=== PATIENT | male | born 1980 | race Caucasian/White ===

== ENCOUNTER 2020-04-06 15:49 | Emergency (ER) | payer MEDICAID, SELFPAY ==
[2020-04-06 15:50] VITALS: BP 155/100; PULSE 76; RESP 16; TEMP 36.5; O2SAT 98; BMI 24.3
--- NOTE | 2020-04-06 15:57 | ECG_ITS ---
APPROVED REPORT Exam: Resting ECG HR:76 bpm ECG Measurements Heart Rate 76 AXES WV 152 P 66 QRSd 90 QRS 72 QT 394 T 67 QTc 443 Conclusion Normal sinus rhythm Normal ECG Electronically signed by : Alex Scott, 04/07/2020 08:03:18
--- NOTE | 2020-04-06 15:59 | HMH.EDGENADL ---
ED Disposition Clinical Impression: Left arm numbness Headache Qualifiers: Headache type: unspecified Headache chronicity pattern: acute headache Intractability: not intractable Qualified Code(s): R51.9 - Headache, unspecified Disposition: Home, Self-Care Condition on Discharge: Good Instructions: DI for Headache Additional Instructions: Follow-up with Dr. Auguste, neurology. Call for appointment. You are being provided with a list of physicians available for follow-up of your condition. Please call a physician on this list to arrange a follow-up appointment as soon as possible. Return to the emergency department if numbness worsens for any new symptoms of numbness, weakness, difficulty with speech or vision. Referrals: PCP,No [Primary Care Provider] - Cait Auguste MD [Staff Physician] - - Critical Care Critical Care Time: No Attestation: On , the high probability of a clinically significant, sudden or life threatening deterioration of the following system(s) required my full and direct attention, intervention and personal management. The time I documented below is in addition to time spent performing reported procedures but includes the following listed in this critical care notation. Medical Decision Making - Scott Inquiry Pt receiving controlled substance: No Vital Signs: 04/06/20 15:50 04/06/20 17:28 04/06/20 18:09 Temperature 97.7 F Temperature Source Oral Pulse Rate [Radial] 76 69 62 Respiratory Rate 16 Blood Pressure [Right Arm] 155/100 H 130/83 139/87 Blood Pressure Mean [Right Arm] 118 98 104 Blood Pressure Source [Right Arm] Automatic Cuff Automatic Cuff Blood Pressure Position [Right Arm] Sitting Sitting Sitting 02 Sat by Pulse Oximetry 98 93 L 95 Oxygen Delivery Method Room Air Room Air Room Air - Lab Data Lab results reviewed: Yes: I reviewed the patient's lab results. Lab Results 04/06/20 16:05: WBC 7.0, RBC 5.54, Hgb 16.1, Hct 50.2, MCV 90.7, MCH 29.1, MCHC 32.1, RDW 13.2, Plt Count 295, MPV 7.9, Neut % (Auto) 61.1, Lymph % (Auto) 29.6, Slope % (Auto) 6.1, Eos % (Auto) 1.9, Baso % (Auto) 1.2, Neut # (Auto) 4.3, Lymph # (Auto) 2.1, Slope # (Auto) 0.4, Eos # (Auto) 0.1, Baso # (Auto) 0.1 04/06/20 16:05: Sodium 137, Potassium 4.1, Chloride 100, Carbon Dioxide 31 H, Anion Gap 10.1, BUN 12, Creatinine 1.00, Estimated Creat Clear 99, Estimated GFR 83, Est GFR ( Amer) 101, Glucose 127 H, Calcium 9.5, Troponin I < 0.01 Result diagrams: 04/06/20 16:05 04/06/20 16:05 Orders (Tests/Meds): ED MEDICATIONS Discontinued Medications Generic Name Dose Route Start Last Admin Trade Name Freq PRN Reason Stop Dose Admin Iopamidol 100 ml 04/06/20 16:45 04/06/20 16:46 Iopamidol-370 (76%);100ml Bottle IV 04/06/20 16:46 100 ml ONCE ONE Administration Sodium Chloride 40 ml 04/06/20 16:45 04/06/20 16:46 0.9 % Sodium Chloride 50 Ml Vial IV 04/06/20 16:46 40 ml ONCE ONE Administration Sodium Chloride 10 ml 04/06/20 16:45 04/06/20 16:46 Sodium Chloride 0.9% 10ml Syr (Rad Only) IV 04/06/20 16:46 10 ml ONCE ONE Administration ORDERS Category Date Time Status CT angio head Stat Cat Scan 04/06/20 16:[address] angio neck Stat Cat Scan 04/06/20 16:[address] head/brain wo con Stat Cat Scan 04/06/20 16:09 Taken Troponin I Q3H Lab 04/06/20 19:15 Ordered Troponin I Q3H Lab 04/06/20 22:15 Ordered - Radiology Data #1 Image(s): Chest Image Reviewed: Yes I have reviewed radiologist's interpretation PROCEDURE: XR CHEST PORTABLE CLINICAL HISTORY: dizziness, left arm numbness COMPARISON: No exams were available for comparison FINDINGS: The cardiomediastinal silhouette and pulmonary vascularity are within normal limits. The lungs are clear without infiltrates, suspicious nodules, or pleural effusions. No acute bony abnormalities. IMPRESSION: No acute findings. Dictated by: Dr. Juni Sánchez MD 04/06
--- NOTE | 2020-04-06 16:09 | CT_ITS ---
PROCEDURE: CT HEAD/BRAIN WO CON CLINICAL INDICATION: left arm numbness, headache COMPARISON: CT CT ANGIO HEAD from 04/06/2020 TECHNIQUE: Axial images obtained. All CT scans at the facility use one or more dose reduction, viz: automated exposure control, ma/kV adjustment per patient size (including targeted exams where dose is matched to indication, i.e. head), or iterative reconstruction technique. FINDINGS: No midline shift, mass effect, intracranial hemorrhage, hydrocephalus, or extra-axial fluid collection is evident. The calvarium has an unremarkable appearance. No mastoid effusion. No sinus air-fluid level. IMPRESSION: No acute intracranial finding Dictated by: Josep Bhatti MD 04/06/2020 19:55 Josep Bhatti MD in [place] 04/06/2020 19:55
--- NOTE | 2020-04-06 16:09 | CT_ITS ---
Procedure: CT ANGIO NECK CTA HEAD CLINICAL HISTORY: left arm numbness, headache COMPARISON: CT CT ANGIO HEAD from 04/06/2020 TECHNIQUE: IV Contrast: 100ml Isovue 370 Axial images obtained with sagittal and coronal reformats. All CT scans at the facility use one or more dose reduction, viz: automated exposure control, ma/kV adjustment per patient size (including targeted exams where dose is matched to indication, i.e. head), or iterative reconstruction technique. FINDINGS: CTA neck: The aortic arch, great vessels, right common carotid, right internal carotid, right external carotid, left common carotid left internal carotid and left external carotid arteries have an unremarkable appearance. The vertebrals have an unremarkable appearance. Artifact obscures the proximal aspect of the left vertebral artery. No stenosis, aneurysm, or dissection. CTA head: No aneurysm, AVM, major branch occlusion, or dissection evident. The vertebral basilar system has an unremarkable appearance as does the [id number]. No enhancing lesions are evident. Lung apices are clear. There are few scattered small cervical lymph nodes. Asymmetric decreased aeration of the right vallecula noted as well as some asymmetric density in the left hypo pharyngeal region possibly due to nondistention. IMPRESSION: 1. Negative CTA neck. 2. Negative CTA brain. 3. Other nonacute findings as described above. Dictated by: Josep Bhatti MD 04/07/2020 07:29 Josep Bhatti MD in [place] 04/07/2020 07:29
[2020-04-06 16:13] LABS: Basophils # 0.1 K/mm3 (0-0.2); Basophils % 1.2 % (0.1-2.0); Eosinophils # 0.1 K/mm3 (0.0-0.4); Eosinophils % 1.9 % (0.1-12.0); Hematocrit 50.2 % (42.0-52.0); Hemoglobin 16.1 g/dL (14.1-18.0); Lymphocytes # 2.1 K/mm3 (0.7-4.5); Lymphocytes % 29.6 % (10-50); Mean Corpuscular HGB Conc 32.1 g/dL (31.8-35.4); Mean Corpuscular Hemoglobin 29.1 pg (27.0-31.2); Mean Corpuscular Volume 90.7 fl (80-94); Mean Platelet Volume 7.9 fl (7.4-10.4); Monocytes # 0.4 K/mm3 (0.1-1.0); Monocytes % 6.1 % (1.7-9.3); Neutrophils # 4.3 K/mm3 (1.8-7.8); Neutrophils % 61.1 % (37.0-80.0); Platelet Count 295 K/mm3 (142-424); Red Blood Count 5.54 M/mm3 (4.60-6.20); Red Cell Distribution Width 13.2 % (11.5-17.5)
[2020-04-06 16:18] LABS: Chloride 100 mmol/L (98-107); Sodium 137 mmol/L (136-145)
[2020-04-06 16:19] LABS: Potassium 4.1 mmoL/L (3.5-5.1)
[2020-04-06 16:21] LABS: Blood Urea Nitrogen 12 mg/dl (9-20); Creatinine Clearance Estimated 99 mL/min (50-200); Estimated Glomerular Filt Rate 83 ml/min (>60); GFR (African American) 101 ML/MIN (>60)
--- NOTE | 2020-04-06 16:21 | PC.NURSE ---
Patient going to radiology
[2020-04-06 16:22] LABS: Anion Gap 10.1 mEq/L (5-15); Calcium 9.5 mg/dl (8.4-10.2); Carbon Dioxide 31 mmol/L (22.0-30.0); Glucose 127 mg/dl (74-100)
[2020-04-06 16:43] LABS: Troponin I < 0.01 ng/ml (0.00-0.034)
--- NOTE | 2020-04-06 16:44 | PC.NURSE ---
Patient returning from radiology
[2020-04-06 17:28] VITALS: BP 130/83; PULSE 69; O2SAT 93
[2020-04-06 18:09] VITALS: BP 139/87; PULSE 62; O2SAT 95
[2020-04-06 18:36] VITALS: BP 119/78; PULSE 68; O2SAT 97
[2020-04-06 18:39] VITALS: BP 119/84; PULSE 68; RESP 16; TEMP 36.6; O2SAT 98
== END 2020-04-06 18:41 | disposition home or self-care (01) ==
PROVIDERS: Emergency Provider Emergency Medicine
DX: R42 Dizziness and giddiness (principal); R20.2 Paresthesia of skin; R51.9 Headache, unspecified; F17.210 Nicotine dependence, cigarettes, uncomplicated
CPT/HCPCS: 70450; 70496; 70498; 71045; 80048; 84484; 85025; 93005; 96374; 99283; Q9967

== ENCOUNTER 2020-12-09 17:08 | Emergency (ER) | payer MEDICAID, SELFPAY ==
[2020-12-09 17:15] VITALS: BP 123/97; PULSE 60; RESP 18; TEMP 36.6; O2SAT 100; BMI 22.8
--- NOTE | 2020-12-09 17:57 | HMH.EDUTC ---
[facility] Disposition Clinical Impression: Exposure to COVID-19 virus Disposition: Home, Self-Care Condition on Discharge: Good Instructions: DI for COVID-19 (Suspected or Confirmed ), Preventing the Spread of Coronavirus Discharge Instructions Additional Instructions: Drink plenty of fluids. Take tylenol for pain or fever. Return if you begin to have difficulty breathing. Follow up with your regular doctor. GO TO THE ER FOR ANY WORSENING SYMPTOMS Quarantine until you know the results of your covid-19 test. If it is positive, the health department should call you and give you further instructions about your length of Quarantine and other thing. Referrals: Provider,Referral, [Primary Care Provider] - Time of Disposition: 17:59 Medical Decision Making - Medical Records Medical records reviewed: No: I reviewed the patient's medical records. - Scott Inquiry Pt receiving controlled substance: No Vital Signs: 12/09/20 17:15 12/09/20 18:00 Temperature 97.9 F 97.9 F Temperature Source Oral Pulse Rate 60 Pulse Rate [Right Brachial] 60 Respiratory Rate 18 18 Blood Pressure 123/97 H Blood Pressure [Right Arm] 123/97 H Blood Pressure Mean [Right Arm] 105 Blood Pressure Source [Right Arm] Automatic Cuff Blood Pressure Position [Right Arm] Sitting 02 Sat by Pulse Oximetry 100 Oxygen Delivery Method Room Air Orders (Tests/Meds): ORDERS Category Date Time Status Covid-19 Nasal PCR ([facility]) Routine Lab 12/09/20 17:59 Ordered [facility] HPI - General Stated complaint: covid test Time Seen by Provider: 12/09/20 17:57 - History of Present Illness Provider Complaint: He has been exposed to covid-19 by his girlfriend having covid. He thinks that his exposure initially would have been around 4 days ago. He denies any symptoms or complaints so far. - Related Data Home Medications Medication Instructions Recorded Confirmed No Known Home Medications 04/06/20 04/06/20 Allergies Allergy/AdvReac Type Severity Reaction Status Date / Time No Known Allergies Allergy Verified 08/19/18 17:45 [facility] History - Hepatitis A Screen Attestation statement:: This patient has been screened for Hepatitis A risk factors. I have reviewed the patient's past medical history: Yes - Social History Alcohol Intake: never Occupational Status: employed ROS Obtained: Yes All systems reviewed & no additional complaints - Constitutional Constitutional: Reports system reviewed and no additional complaints, except as docu - Eyes Eyes: Reports system reviewed and no additional complaints, except as docu - ENT Ears, Nose, Mouth, and Throat: Reports system reviewed and no additional complaints, except as docu - Cardiovascular Cardiovascular: Reports system reviewed and no additional complaints, except as docu - Respiratory Respiratory: Reports system reviewed and no additional complaints, except as docu - Gastrointestinal Gastrointestingal: Reports: system reviewed and no additional complaints, except as docu Physical Exam - General General appearance: alert, in no apparent distress - Head Head exam: atraumatic, normocephalic, normal inspection - Eye Eye exam: Present: normal appearance, PERRL, EOMI - ENT ENT exam: Present: normal exam, normal oropharynx, mucous membranes moist, TM's normal bilaterally, normal external ear exam - Neck Neck exam: Present: normal inspection, full ROM, trachea midline. Absent: meningismus, lymphadenopathy - Chest Chest inspection: Present: normal inspection, symmetric chest wall rise. Absent: tenderness - Respiratory Respiratory exam: Present: normal lung sounds bilaterally. Absent: respiratory distress - Cardiovascular Cardiovascular exam: Present: regular rate, normal rhythm. Absent: JVD - Abdominal Exam Abdominal exam: Present: soft, normal bowel sounds. Absent: distention, tenderness, guarding - Extremities Exam Extremities
[2020-12-09 18:00] VITALS: BP 123/97; PULSE 60; RESP 18; TEMP 36.6; O2SAT 100
--- NOTE | 2020-12-10 17:32 | PC.NURSE ---
RELAYED POSITIVE COVID RESULTS
== END 2020-12-09 18:02 | disposition home or self-care (01) ==
PROVIDERS: Emergency Provider Nurse Practitioner Family
DX: U07.1 COVID-19 (principal)
CPT/HCPCS: 99202; G0463; U0003

== ENCOUNTER 2021-01-22 09:14 | Inpatient (IN) | payer MEDICAID, SELFPAY ==
[2021-01-22] VITALS (28 sets, daily range): BP systolic 101–159; BP diastolic 47–103; PULSE 79–103; RESP 16–20; TEMP 36.4–36.9; O2SAT 94–100; BMI 24.2; BMI 24.3; BMI 22.6
--- NOTE | 2021-01-22 | IR_ITS ---
APPROVED REPORT Patient Location: Emergent Project Development Manager: BERNARD Calle RT (R) PROCEDURES Left heart catheterization Left ventriculogram Selective coronary angiogram Thrombectomy followed by drug-eluting stent deployment to the proximal ID INDICATION Acute ST elevation anterior myocardial infarction, Coronary artery disease Informed consent was obtained prior to the procedure. COMPLICATIONS None Estimated Blood Loss: less than 10ml TECHNIQUE One percent lidocaine used to anesthetize the right anterior aspect of the wrist. The right radial artery was accessed via the Seldinger technique. A 6 Indonesian sheath was placed in the right radial artery. 2.5 mg of verapamil, 800 mcg of nitroglycerin, 1mg Lidocaine and 5000 U Heparin were given through the arterial sheath. And I Lorna left guide catheter was used to perform left heart catheterization left ventriculogram and selective coronary angiogram. Soon as a catheter was cannulated and the left main artery and a Choice PT wire is placed in the circumflex artery in order to stabilize the catheter. An additional Choice PT extra-support wire was then used to push through the occlusion in the proximal LAD. A [employer] aspiration catheter was used to aspirate a large thrombus which restored IMANI-3 flow. Following this a 3.5 x 30 mm resolute [place] stent was deployed at 18 niesha reducing the critical stenosis. An additional 3.5 x 12 mm resolute [place] stent was placed distal to the first stent and deployed at 20 niesha. The balloon was brought back and deployed at 2022 and 24 niesha up and down the proximal LAD. IMANI-3 flow was present before the procedure with IMANI-3 flow at the end of the procedure. Following this the catheter was pulled back and used to perform right coronary angiography as well as left heart catheterization and left ventriculogram. Patient had tremendous difficulty with sedation was combative and required both manual pressure as well as the addition of propofol in order to stabilize him on the cath table. He did tolerate the procedure well and the procedure was otherwise uncomplicated with the exception of requiring propofol for sedation. At the end of the procedure the apparatus was removed the sheath was removed good hemostasis was achieved using TR banding patient was transferred to the postop putting her stable condition ANGIOGRAPHIC RESULTS The left main artery Normal The left anterior descending artery Initially ostially occluded following stent deployment the proximal LAD was widely patent. The stent covered a small first diagonal artery with IMANI-3 flow down the first diagonal artery and ended immediately proximal to a moderate to large first second diagonal artery. Distal to the second diagonal artery the LAD then had diffuse 30% stenoses The circumflex artery Is a dominant vessel giving rise to 3 obtuse marginal arteries all of which are widely patent with mild 10% luminal irregularities The right coronary artery Nondominant yet still large with mild 10% luminal irregularities The [place] ventriculogram reveals Dilated ventricle with anterior and apical hypokinesis estimated ejection fraction 20-25% The left ventricular end-diastolic pressure 40 mmHg IMPRESSION Acute proximal anterior ST elevation myocardial infarction Successful thrombectomy followed by drug-eluting stent deployment to the proximal LAD 100% occlusion reduced to 0% with 2 contiguous drug-eluting stents Dilated ventricle with severely reduced ejection fraction Severely elevated LVEDP PLAN 1. Brilinta 90 twice daily plus aspirin 81 mg daily 2. Start TEJ inhibitors and then titrate up. Once patient is on reasonable dose of TEJ inhibition then carvedilol
--- NOTE | 2021-01-22 09:51 | HMH.EDUTC ---
[facility] [place] Disposition Clinical Impression: STEMI (ST elevation myocardial infarction) Qualifiers: Involved coronary artery: unspecified coronary artery Qualified Code(s): I21.3 - ST elevation (STEMI) myocardial infarction of unspecified site Disposition: Admitted as Observation Condition on Discharge: Good Medical Decision Making - Scott Inquiry Pt receiving controlled substance: No Scott was queried for this patient: No Vital Signs: 01/22/21 09:15 01/22/21 09:23 01/22/21 10:30 Temperature 98.3 F 98.3 F 98.3 F Temperature Source Oral Temporal Artery Scan Pulse Rate 80 Pulse Rate [Right] 80 80 Respiratory Rate 16 16 16 Blood Pressure 130/100 H Blood Pressure [Right Arm] 130/100 H 130/100 H Blood Pressure Mean [Right Arm] 110 110 Blood Pressure Source [Right Arm] Automatic Cuff Blood Pressure Position Blood Pressure Position [Right Arm] Sitting Sitting 02 Sat by Pulse Oximetry 98 98 Oxygen Delivery Method Room Air Room Air 01/22/21 11:08 01/22/21 11:24 Temperature 98 F 98 F Temperature Source Oral Oral Pulse Rate 98 H Pulse Rate [Right] 98 H Respiratory Rate 16 16 Blood Pressure 159/99 H Blood Pressure [Right Arm] 159/99 H Blood Pressure Mean [Right Arm] 119 Blood Pressure Source [Right Arm] Blood Pressure Position Sitting Blood Pressure Position [Right Arm] Sitting 02 Sat by Pulse Oximetry 98 Oxygen Delivery Method Room Air Room Air - Lab Data Lab Results 01/22/21 11:08: WBC 11.7 H, RBC 5.66, Hgb 17.3, Hct 52.6 H, MCV 93.0, MCH 30.6, MCHC 32.8, RDW 13.5, Plt Count 341, MPV 8.3, Neut % (Auto) 78.6, Lymph % (Auto) 15.3, Boyd % (Auto) 4.2, Eos % (Auto) 0.6, Baso % (Auto) 1.2, Neut # (Auto) 9.2 H, Lymph # (Auto) 1.8, Boyd # (Auto) 0.5, Eos # (Auto) 0.1, Baso # (Auto) 0.1 01/22/21 11:08: Sodium 140, Potassium 4.6, Chloride 103, Carbon Dioxide 27, Anion Gap 14.6, BUN 13, Creatinine 1.00, Estimated Creat Clear 88, Estimated GFR 83, Est GFR ( Amer) 100, Glucose 167 H, Calcium 10.0, Total Bilirubin 0.5, AST 64 H, ALT 61, Alkaline Phosphatase 101, Troponin I 1.41 H, Total Protein 8.4 H, Albumin 4.8, Globulin 3.6 H, Albumin/Globulin Ratio 1.3 01/22/21 11:08: PT 10.6, INR 0.89 L, APTT 26.2 01/22/21 11:08: NT-Pro-B Natriuret Pep 787 H 01/22/21 11:14: SARS-CoV-2 (PCR) Detected A, Influenza A Untype (PCR) Not detected, Influenza Type B (PCR) Not detected 01/22/21 11:44: Activated Clotting Time 308 H* Result diagrams: 01/22/21 11:08 01/22/21 11:08 Orders (Tests/Meds): ED MEDICATIONS Generic Name Dose Route Start Last Admin Trade Name Freq PRN Reason Stop Dose Admin Aspirin 81 mg 01/23/21 09:00 Aspirin Ec 81mg Tablet PO 02/22/21 08:59 DAILY WHITNEY Atorvastatin Calcium 40 mg 01/22/21 21:00 01/22/21 21:24 Atorvastatin 40mg Tablet PO 02/21/21 20:59 40 mg HS WHITNEY Administration Fentanyl Citrate 25 mcg 01/22/21 12:24 Fentanyl 100mcg/2ml Vial IV 01/23/21 11:44 Q3MINP PRN Moderate to Severe Pain Fentanyl Citrate 50 mcg 01/22/21 12:24 Fentanyl 100mcg/2ml Vial IV 01/23/21 11:44 Q3MINP PRN Moderate to Severe Pain Fentanyl Citrate 25 mcg 01/22/21 12:24 Fentanyl 250mcg/5ml Vial IV 01/23/21 11:44 Q3MINP PRN Moderate to Severe Pain Fentanyl Citrate 50 mcg 01/22/21 12:24 Fentanyl 250mcg/5ml Vial IV 01/23/21 11:44 Q3MINP PRN Moderate to Severe Pain Flumazenil 0.2 mg 01/22/21 12:24 Flumazenil 0.1mg/Ml 5ml Vial IV 01/22/21 23:00 NEEDED PRN Sedation Sodium Chloride 1,000 mls @ 25 mls/hr 01/22/21 12:24 01/22/21 16:38 Sod Chlor 0.9% 1000ml Bag IV 01/23/21 11:44 Not Given .Q25H WHITNEY Lisinopril 2.5 mg 01/22/21 21:00 01/22/21 21:24 Lisinopril 2.5mg Tablet PO 02/21/21 20:59 2.5 mg BID WHITNEY Administration Midazolam HCl 1 mg 01/22/21 12:24 Midazolam 2mg/2ml Vial IV 01/23/21 11:44 Q3MINP PRN Sedation Midazolam HCl 1 mg 01/22/21 12:24 Midazolam Hcl 1mg/1m
--- NOTE | 2021-01-22 10:58 | ECG_ITS ---
APPROVED REPORT Exam: Resting ECG HR:101 bpm ECG Measurements Heart Rate 101 AXES [place] 136 P 76 QRSd 102 QRS -54 QT 342 T 36 QTc 443 Conclusion Sinus tachycardia Possible Left atrial enlargement Incomplete right bundle branch block Left anterior fascicular block Anteroseptal infarct, possibly acute Lateral injury pattern ACUTE MD Abnormal ECG Electronically signed by : Alex Scott MD 01/24/2021 21:10:57
--- NOTE | 2021-01-22 11:06 | ECG_ITS ---
APPROVED REPORT Exam: Resting ECG HR:94 bpm ECG Measurements Heart Rate [address] 146 P 80 QRSd 92 QRS -53 QT 334 T 68 QTc 417 Conclusion Normal sinus rhythm Possible Left atrial enlargement Pulmonary disease pattern Left anterior fascicular block Septal infarct, age undetermined Abnormal ECG Electronically signed by : Alex Scott MD 01/24/2021 21:10:47
--- NOTE | 2021-01-22 11:07 | PC.NURSE ---
Dr Kingston speaking with Dr Jurado at this time.
--- NOTE | 2021-01-22 11:08 | PC.NURSE ---
STEMI alert called.
--- NOTE | 2021-01-22 11:13 | PC.NURSE ---
Pt taken to cath lab technologist
--- NOTE | 2021-01-22 11:13 | PC.NURSE ---
Pt to laborer general
--- NOTE | 2021-01-22 11:13 | HMH.EDGENADL ---
ED Disposition Clinical Impression: STEMI (ST elevation myocardial infarction) Disposition: Admitted as Observation Condition on Discharge: Serious Referrals: Provider,Referral, [Primary Care Provider] - - Critical Care Critical Care Time: No Attestation: On 01/22/21, the high probability of a clinically significant, sudden or life threatening deterioration of the following system(s) required my full and direct attention, intervention and personal management. The time I documented below is in addition to time spent performing reported procedures but includes the following listed in this critical care notation. Medical Decision Making - Medical Records Medical records reviewed: Yes: I reviewed the patient's medical records. - Scott Inquiry Pt receiving controlled substance: No Vital Signs: 01/22/21 09:15 01/22/21 09:23 01/22/21 10:30 Temperature 98.3 F 98.3 F 98.3 F Temperature Source Oral Temporal Artery Scan Pulse Rate 80 Pulse Rate [Right] 80 80 Respiratory Rate 16 16 16 Blood Pressure 130/100 H Blood Pressure [Right Arm] 130/100 H 130/100 H Blood Pressure Mean [Right Arm] 110 110 Blood Pressure Source [Right Arm] Automatic Cuff Blood Pressure Position [Right Arm] Sitting Sitting 02 Sat by Pulse Oximetry 98 98 Oxygen Delivery Method Room Air Room Air Orders (Tests/Meds): ED MEDICATIONS Discontinued Medications Generic Name Dose Route Start Last Admin Trade Name Brigitte PRN Reason Stop Dose Admin Aspirin 325 mg 01/22/21 11:08 Aspirin 325mg Tablet PO 01/22/21 11:09 ONCE ONE Heparin Sodium (Porcine) 7,300 unit 01/22/21 11:08 Heparin Sodium 5,000 Unit/Ml Vial 100 unit/kg (7300 unit) 01/22/21 11:09 IV ONCE ONE Ketorolac Tromethamine 60 mg 01/22/21 10:15 01/22/21 10:29 Ketorolac 60mg/2ml Vial IM 01/22/21 10:16 60 mg ONCE ONE Administration Ticagrelor 180 mg 01/22/21 11:08 Ticagrelor 90mg Tablet PO 01/22/21 11:09 ONCE ONE ORDERS Category Date Time Status Elbow XR left mininum 3 views [XR elbow LT min 3V] Stat Exams 01/22/21 10:17 Ordered Brain Natriuretic Peptide Stat Lab 01/22/21 11:10 Ordered Complete Blood Count Auto Diff Stat Lab 01/22/21 11:09 Ordered Comprehensive Metabolic Panel Stat Lab 01/22/21 11:09 Ordered PTT [Activated Partial Thrombo Time] Stat Lab 01/22/21 11:10 Ordered Prothrombin Time INR Stat Lab 01/22/21 11:10 Ordered Rapid PCR Covid and Flu A/B Stat Lab 01/22/21 11:12 Ordered Trop I [Troponin I] Stat Lab 01/22/21 11:09 Ordered Troponin I Q3H Lab 01/22/21 14:15 Ordered Troponin I Q3H Lab 01/22/21 17:15 Ordered - ECG Data Tracing #1 EKG was reviewed at 1106. Normal trickle rate at 94 bpm, WV interval 146 ms. Normal QTC. Patient has diffuse elevation in the lateral precordial leads as well as depression in 2 3 aVF. Patient is elevation in aVR as well as aVL. Concern for STEMI. ECG initial impression date: 01/22/21 ECG initial impression time: 11:06 - Reevaluation(s) Time: 11:15 Reevaluation #1: EKG is consistent with acute ST elevation. Cardiology was notified. Patient was loaded with aspirin, Brilinta and heparin. Patient transferred to the Social Media Intern for intervention. - MONET Score for Stemi Age of Patient: 40-49 years old Heart Rate: 70-89 bpm Systolic Blood Pressure: 120-139 mmhg Serum Creatinine: <0.40 mg/dl CHF [place] Class: I-No CHF Other Risk Factors: ST Segment Deviation Stemi Risk Score: 97 Risk Stratification: 49-125 = Low Risk Medical Decision Narrative: 40-year-old male presented to the emergency department with subacute left arm pain. The patient does not have any reproducible tenderness on examination. Range of motion appears to be appropriate. We will obtain EKG. General Adult HPI - General Chief complaint: PAIN Stated complaint: left elbow pain,no accident Time Seen by Provider: 01/22/21 09:51 Mode of Arrival: Ambulatory Source of I
--- NOTE | 2021-01-22 11:14 | PC.NURSE ---
PT TO [facility] PER STRETCHER
--- NOTE | 2021-01-22 11:14 | PC.NURSE ---
Calling Dr Pan at this time who is covering Dr Williamson who is on for unassigned pt's
[2021-01-22 11:17] LABS: Basophils # 0.1 K/mm3 (0-0.2); Basophils % 1.2 % (0.1-2.0); Eosinophils # 0.1 K/mm3 (0.0-0.4); Eosinophils % 0.6 % (0.1-12.0); Hematocrit 52.6 % (42.0-52.0); Hemoglobin 17.3 g/dL (14.1-18.0); Lymphocytes # 1.8 K/mm3 (0.7-4.5); Lymphocytes % 15.3 % (10-50); Mean Corpuscular HGB Conc 32.8 g/dL (31.8-35.4); Mean Corpuscular Hemoglobin 30.6 pg (27.0-31.2); Mean Platelet Volume 8.3 fl (7.4-10.4); Monocytes # 0.5 K/mm3 (0.1-1.0); Monocytes % 4.2 % (1.7-9.3); Neutrophils # 9.2 K/mm3 (1.8-7.8); Neutrophils % 78.6 % (37.0-80.0); Platelet Count 341 K/mm3 (142-424); Red Blood Count 5.66 M/mm3 (4.60-6.20); Red Cell Distribution Width 13.5 % (11.5-17.5); White Blood Count 11.7 K/mm3 (4.8-10.8)
--- NOTE | 2021-01-22 11:19 | PC.NURSE ---
According to Dr Pan there is some confusion with the schedule for coverage and Dr Davidson is actually preparation supervisor canning. Calling him at this time.
[2021-01-22 11:21] LABS: Influenza A, PCR Not Detected (NotDetected); Influenza B, PCR Not Detected (NotDetected)
[2021-01-22 11:21] LABS: Chloride 103 mmol/L (98-107); Potassium 4.6 mmoL/L (3.5-5.1); Sodium 140 mmol/L (136-145)
--- NOTE | 2021-01-22 11:21 | HMH.CNCARD ---
History of Present Illness Consult date: 01/22/21 Requesting physician: Marshall Wilhelm Consult reason: chest pain Chief complaint: STEMI History of present illness: 40-year-old male presented to [facility] ED as a STEMI. Patient states for the past 3 days he has been having some left elbow pain which radiates to the left armpit. Patient states the pain would come and go but for the past few hours the pain has become worse in the left elbow. Patient denies chest pain, tightness or pressure. Patient denied shortness of breath. No swelling noted of the lower extremity. Patient was being seen at the [facility] center for his left elbow pain. [facility] stated while he was waiting to be seen, he became very diaphoretic and had near syncope. Patient is alert and oriented appropriately x3. Patient denies dizziness. Patient denies palpitations. STEMI alert was called. Dr. Jurado was notified and EKG was reviewed. Per ED protocol, Brilinta 900 mg was given p.o. along with aspirin and heparin was initiated. Fund Manager was notified. Patient was transported to the Fund Manager to undergo left heart catheterization. Discussed with patient the risk and benefits of undergoing left heart catheterization with right radial access. Patient verbalized understanding and is agreeable to procedure. Pending on the results of the heart catheterization, medication and treatment therapies may be recommended. Echocardiogram will be obtained to assess LV function and valve status. Results of the echocardiogram, medication and treatment therapies may be recommended. Patient states no known cardiac history. Denies history of hypertension or hyperlipidemia. Patient states he does smoke marijuana daily. Patient states the last day he smoked marijuana was yesterday. Patient does consume alcohol on a social basis. Serial troponins have been drawn. Results are pending at this time. EKG reveals normal sinus rhythm, possible left atrial enlargement, pulmonary disease pattern, left anterior fascicular block, septal infarct, abnormal ECG with a heart rate of 94 bpm. Labs pending at this time. Chest x-ray is pending at this time Discussed plan of care with Dr. Jurado. Discussed risk and benefits with patient to undergo left heart catheterization with right radial access. Patient verbalized understanding and is agreeable to procedure. Echocardiogram to obtain LV function and valve status. Pending on the results of the echocardiogram and left heart catheterization, medication and treatment therapies may be recommended. Patient was taken directly to Fund Manager. Thank you for allowing cardiology to participate in the care of this patient. [facility] History I have reviewed the patient's past medical history: Yes *Have you ever received a pneumonia vaccine?: No *Have you received a flu vaccine this season?: No - *Social History Smoking Status: Current every day smoker Alcohol Intake: never *Occupational Status:: employed *Travel in the last 8 weeks: Inside the [place] Family Hx:: Coronary Artery Disease Meds Home Medications Medication Instructions Recorded Confirmed Type No Known Home Medications 04/06/20 01/22/21 History Allergies Allergy/AdvReac Type Severity Reaction Status Date / Time No Known Allergies Allergy Verified 08/19/18 17:45 Exam Vital signs and Labs for Last 24 Hours: Temp Pulse Resp BP Pulse Ox 98 F 98 H 16 159/99 H 98 01/22/21 11:08 01/22/21 11:08 01/22/21 11:08 01/22/21 11:08 01/22/21 11:08 Laboratory Results - last 24 hr 01/22/21 11:08: WBC 11.7 H, RBC 5.66, Hgb 17.3, Hct 52.6 H, MCV 93.0, MCH 30.6, MCHC 32.8, RDW 13.5, Plt Count 341, MPV 8.3, Neut % (Auto) 78.6, Lymph % (Auto) 15.3, Young % (Auto) 4.2, Eos % (Auto) 0.6, Baso % (Auto) 1.2, Neut # (Auto) 9.2 H, Lymph # (Auto) 1.8, Young # (Auto) 0.5, Eos # (Auto) 0.1, Baso # (Auto) 0.1 I & O for Last 24 hours: Intake & Output 01/19/2101/20
[2021-01-22 11:24] LABS: Alanine Aminotransferase 61 U/L (12-78); Albumin Level 4.8 g/dl (3.5-5.0); Albumin/Globulin Ratio 1.3 (1.1-1.8); Alkaline Phosphatase 101 U/L (38-126); Anion Gap 14.6 mEq/L (5-15); Aspartate Amino Transferase 64 U/L (17-59); Bilirubin,Total 0.5 mg/dl (0.2-1.3); Blood Urea Nitrogen 13 mg/dl (9-20); Carbon Dioxide 27 mmol/L (22.0-30.0); Creatinine Clearance Estimated 88 mL/min (50-200); Estimated Glomerular Filt Rate 83 ml/min (>60); GFR (African American) 100 ML/MIN (>60); Globulin 3.6 g/dL (1.3-3.2); Total Protein,Serum 8.4 g/dl (6.3-8.2)
[2021-01-22 11:25] LABS: Glucose 167 mg/dl (74-100)
[2021-01-22 11:27] LABS: Activated Partial Thrombo Time 26.2 seconds (22.8-30.6); Prothrombin Time 10.6 seconds (10.1-12.5)
[2021-01-22 11:33] LABS: NT Pro Brain Natriuretic Pep. 787 pg/mL (0-125)
[2021-01-22 11:39] LABS: INR 0.89 (0.9-1.1)
[2021-01-22 11:42] LABS: Coronavirus 19, PCR Detected (NotDetected)
[2021-01-22 11:42] LABS: Troponin I 1.41 ng/ml (0.00-0.034)
[2021-01-22 14:29] LABS: CATHL Activated Clotting Time 308 SEC (74-125)
--- NOTE | 2021-01-22 15:16 | CA_ITS ---
APPROVED REPORT EXAM: Comprehensive 2D, Doppler, and color-flow Echocardiogram Health Services Coordinator: Leatha Baez RVT Ht: 5 ft 6 in Wt: 150lbs BSA: 1.77 BP: 159/99 mmHg Indications: STEMI,SMOKER,EF OF 20-25% ON CATH 01/22 2D Dimensions LVOT 1.98 cm (M/F) 1.5-2.5 LA Volume 19.90 mL LA Volume Index 11.24 mL/m2 (M/F) 16-34 M-Mode Dimensions RVDd 1.52 cm (0.9-2.6) LA Diam 3.48 cm (1.9-4.0) LVDd 4.87 cm (3.5-5.7) Ao Diam 2.96 cm (2.0-3.7) LVDs 3.88 cm (3.5-5.7) IVSd 0.87 cm (0.6-1.1) PWd 0.65 cm (0.6-1.1) EF (Teich) 31.40% FS 14.70% EDV (Teich) 94.90 mL TAPSE 1.68 (<1.7) ESV (Teich) 65.10 mL LV Diastology E Decel Time 103.00 (160-240 msec) E/A Ratio 1.3 MED E' 5.70 (< 7 cm/sec) E'/MED E' Ratio 14.16 (>14) LAT E' 8.90 (<10 cm/sec) E/LAT E' Ratio 9.07 (>14) Aortic Valve AO Peak GR. 3.30 mmHg Mitral Valve MV E Max Andrea. 81.00 (40-130 cm/s) MV A Velocity 61.00 (40-130 cm/s) E/A Ratio 1.33 MV Decel. Time 103.00 (160-240 ms) MV PHT 30.00 ms Pulmonary Valve PV Peak Velocity 66.00 (50-150 cm/s) Tricuspid Valve TR P. Velocity 299.00 cm/s RAP Estimate 10.00 mmHg RVSP 45.90 mmHg Left Ventricle Left atrium is mildly enlarged, left ventricle is normal size, mild concentric left ventricular hypertrophy, visually estimated ejection fraction 25%, there is marked hypokinesis involving mid to distal septum, anterior, anterior apical and apical wall. Grade 1 diastolic dysfunction seen without tissue Doppler evidence of raise left atrial pressure. Right Ventricle Right atrium and right ventricle are normal size and contractility. Aortic Valve Aortic valve is minimally thickened and fibrosed, there is no aortic stenosis or aortic insufficiency. Mitral Valve Mitral valve is grossly normal, there is trace mitral regurgitation. Tricuspid Valve Tricuspid valve grossly normal, there is trace tricuspid regurgitation, calculated right ventricular systolic pressure is 46 mmHg. Pulmonic Valve Pulmonic valve is poorly visualized. Great Vessels Aortic root is normal size. Pericardium No significant pericardial effusion noted. Conclusion 1. Mildly enlarged left atrium, normal left ventricular size, mild concentric left ventricular hypertrophy, severe reduced left ventricular systolic function, visually estimated ejection fraction 25%, with multiple segmental wall motion abnormality described above, Doppler evidence of low cardiac output state is also seen. 2. Mild mitral and tricuspid regurgitation. Calculated right ventricular systolic pressure is 46 mmHg. 3. No significant pericardial effusion noted. 4. Inferior vena cava is normal size with normal inspiratory collapse. Electronically signed by : Isai Brown MD 01/22/2021 19:54:07
--- NOTE | 2021-01-22 15:45 | HMH.PHAVTE ---
[facility] Pharmacy VTE Monitoring - Patient Demographics Admission date: 01/22/21 Report Date: 01/22/21 Time: 15:45 Allergies/Adverse Reactions: Patient Allergies No Known Allergies Allergy (Verified 08/19/18 17:45) Height: 1.68 m Weight: 68.039 kg Patient Problems: Current Active Problems Left arm numbness (Acute) STEMI (ST elevation myocardial infarction) (Acute) Left elbow pain (Acute) - VTE Risk Labs: VTE Related Lab Results Hgb 17.3 g/dL (14.1-18.0) 01/22/21 11:08 Hct 52.6 % (42.0-52.0) H 01/22/21 11:08 Plt Count 341 K/mm3 (142-424) 01/22/21 11:08 PT 10.6 seconds (10.1-12.5) 01/22/21 11:08 INR 0.89 (0.9-1.1) L 01/22/21 11:08 APTT 26.2 seconds (22.8-30.6) 01/22/21 11:08 BUN 13 mg/dl (9-20) 01/22/21 11:08 Creatinine 1.00 mg/dl (0.66-1.25) 01/22/21 11:08 Estimated Creat Clear 88 mL/min (50-200) 01/22/21 11:08 VTE Score: 1 - Prophylaxis VTE Prophylaxis Ordered?: Yes Types of VTE Prophylaxis: TEDS Knee High Location of Applied Device: Bilateral Lower Extremeties
--- NOTE | 2021-01-22 15:46 | PC.NURSE ---
PT IS RESTING IN BED WITH VISITOR AT BEDSIDE. ALERT AND ORIENTED X4. NO COMPLAINTS OF PAIN OR DISCOMFORT. PT HAS VOICED SEVERAL TIMES THAT HE FEELS MUCH BETTER THAN HE DID WHEN HE ARRIVED TO THE HOSPITAL. PT HAS AMBULATED TO THE BATHROOM. NSR ON THE MONITOR. VSS. LUNG SOUNDS CLEAR. ABDOMEN SOFT/NON TENDER WITH ACTIVE BOWEL SOUNDS. WILL CONTINUE TO MONITOR.
--- NOTE | 2021-01-22 19:22 | INFXCTL.NOTE ---
Patient does not require airborne/contact/eye protection precautions for positive covid test upon admission. Patient initially covid positive on 12/09/20, and is out of his 21 day window for transmission based precautions. Charge nurse notified.
[2021-01-23] VITALS (12 sets, daily range): BP systolic 89–155; BP diastolic 56–110; PULSE 77–120; RESP 16–20; TEMP 36.6–37; O2SAT 93–100; BMI 24.0
--- NOTE | 2021-01-23 01:59 | ECG_ITS ---
APPROVED REPORT Exam: Resting ECG HR:111 bpm ECG Measurements Heart Rate [address] 132 P 75 QRSd 84 QRS -25 QT 334 T 86 QTc 454 Conclusion Sinus tachycardia Possible Left atrial enlargement Septal infarct, age undetermined T wave abnormality, consider lateral ischemia Abnormal ECG Electronically signed by : Alex Scott MD 02/07/2021 21:27:04
--- NOTE | 2021-01-23 06:29 | PC.NURSE ---
Patient is alert and oriented x4. Patient has been resting on and off this shift. At approximately 0200 patient had complaints of chest pain with nausea. STAT EKG was ordered and read by ER MD. Cardiology was contacted new ordered received and given. Patient had an emesis episode and stated he felt better . Patient has been stable, cath sight is C/D/I. Call light is within reach. Will continue to monitor.
--- NOTE | 2021-01-23 08:54 | HMH.PNCARD ---
Subjective Date: 01/23/21 Time: 08:30 Principal diagnosis: STEMI Interval history: 40-year-old male presented to [facility] ED as a STEMI one day ago. Patient had been experiencing for the past 3 days, left elbow pain which radiates to the left armpit. Patient states the pain would come and go but for the past few hours the pain has become worse in the left elbow. Patient did undergo left heart catheterization. Left heart catheterization revealed acute proximal anterior ST elevation myocardial infarction, successful thrombectomy followed by drug-eluting stent deployment to the proximal LAD with 100% occlusion reduced to 0 with 2 contiguous drug-eluting stents. Dilated ventricle with severely reduced EF. Severely elevated LVEDP. Patient was started on Brilinta 90 mg twice daily along with 81 mg aspirin daily. Low-dose TEJ inhibitor was also started. Throughout the night patient complained of left lower breast pain radiating to the back. Patient was noted to be hypertensive with tachycardia. Dr. Jurado was notified at that time. Patient was prescribed morphine 4 mg for pain as needed. Patient has a reaction to the morphine in which he vomits after receiving the morphine. Coreg 12.5 twice daily along with increasing the lisinopril to 20 mg twice daily was noted for better heart rate and BP control. Patient was also started on atorvastatin 40 mg for hyperlipidemia. Echocardiogram was obtained. EF noted is 25% with multiple segment wall motion abnormality. Mild MR and TR noted. Low cardiac output was noted. Due to patient's ischemic cardiomyopathy, we will get patient fitted for LifeVest. Discussed with patient's the risk and benefits of wearing LifeVest due to ischemic cardiomyopathy. Patient is agreeable for LifeVest. clinical informatics spec reveals sinus tachycardia with a heart rate of 112 to 118 bpm. Blood pressure remains elevated. Right wrist cath site noted with dressing dry and intact. No swelling noted at the site. C:ANGIOGRAPHIC RESULTS The left main artery Normal The left anterior descending artery Initially ostially occluded following stent deployment the proximal LAD was widely patent. The stent covered a small first diagonal artery with IMANI-3 flow down the first diagonal artery and ended immediately proximal to a moderate to large first second diagonal artery. Distal to the second diagonal artery the LAD then had diffuse 30% stenoses The circumflex artery Is a dominant vessel giving rise to 3 obtuse marginal arteries all of which are widely patent with mild 10% luminal irregularities The right coronary artery Nondominant yet still large with mild 10% luminal irregularities The [place] ventriculogram reveals Dilated ventricle with anterior and apical hypokinesis estimated ejection fraction 20-25% The left ventricular end-diastolic pressure 40 mmHg IMPRESSION Acute proximal anterior ST elevation myocardial infarction Successful thrombectomy followed by drug-eluting stent deployment to the proximal LAD 100% occlusion reduced to 0% with 2 contiguous drug-eluting stents Dilated ventricle with severely reduced ejection fraction Severely elevated LVEDP PLAN 1. Brilinta 90 twice daily plus aspirin 81 mg daily 2. Start TEJ inhibitors and then titrate up. Once patient is on reasonable dose of TEJ inhibition then carvedilol can be added 3. High intensity statin to achieve an LDL less than 55 4. Avoidance of tobacco products 5. Risk factor modification 6. Patient needs continuous telemetry monitoring for at least the next 48 hours 7. Echocardiogram prior to discharge home to determine if ejection fraction is greater than 35%. If ejection fraction is 35% or less he should be fitted with a LifeVest prior to being discharged home Echo:Conclusion 1. Mildly enlarged left atrium, normal left ventricular size, mild concentric left ventricular hypertrophy, severe reduced left ventricular systolic fu
--- NOTE | 2021-01-23 09:17 | HMH.HP ---
*Admission Date: 01/22/21 *Chief complaint: arm pain *History of present illness: this patient presented [facility] state that he has been having pain on and off in his left elbow since State that it feels like a pinched nerve and feels achy like a toothache State that he also has pain in his armpit area that feels like he may have pulled something and pain is worse with movement and that the area feels swollen States that pain got worse this morning so he came in to get checked on viewing EKG immediately took EKG to ED physician Dr Iqbal he viewed and agreed to move patient to ED immediately 1010 Patient came to door of room, Patient states that pain in armpit area and elbow aching States that pain is causing him to sweat and the pain has been making him feel sick at his stomach on and off and he was patient holding elbow. Denies radiation of pain will give IM Toradol to see if helps with pain Patient still awaiting xray no distress 1045 patient states that medication is not helping Pain States that the pain is not moving anywhere just in his armpit/side area and elbow Patient sitting in chair States that pain is making him feel hot and he feels like he is getting nervous and anxious like he is having a panic attack no distress talking with staff 1053 patient appears anxious sweating and moving around in chair. States that pain is still not improved and feeling hot all over Patient was sweating profusely and states that he is feeling nauseous reports Pain is worse in his armpit area and feels like it is deep inside there holding armpit area. States that he feels anxious and cold Patient appeared pale in color and states that pain is continuing to get worse and feels different then what it did when he got here, Due to changes in pain, patient appearing anxious and diaphoretic EKG obtained and revealed abnormal finding with ST elevation noted and concern for STEMI Immediately took the EKG to the ED and showed and Discussed with ED physician Dr Iqbal and patient immediately transfered to the ED for further treatment via wheel chair pt was seen in the ed-is is a 40-year-old male presented to the emergency department with some left-sided elbow pain that has been going on for the last 3 days. Patient states that he felt some discomfort in his left elbow on the medial side. He denies any injury that he is aware of. The dull nagging pain. States that occasionally gets some sharp pains that radiate up into his left armpit. Patient states that the pains have been intermittent since the last 3 days. Denies any trauma to the area. Is not have any palpitations. No associated shortness of breath, cough or hemoptysis. No other chest pain. Is not have any headache or change in vision. No focal weakness. No abdominal pain or vomiting. No diarrhea. pt had abn ekg which was felt to be acute stemi [facility] History I have reviewed the patient's past medical history: Yes Medical History: Denies:: Cancer, Diabetes Mellitus Type 1, Diabetes Mellitus Type 2, MRSA *Have you ever received a pneumonia vaccine?: No *Have you received a flu vaccine this season?: No Other Surgeries: Yes: Cardiac Catheterization, Coronary Stent Amputation: No Fractures: No - *Social History Last grade of school completed: GED Smoking Status: Never smoker Alcohol Intake: never Substance Use Type: marijuana Last Used Substance: days (ago) *Occupational Status:: employed Housing: apartment Household Members: significant other *Travel in the last 8 weeks: None Family Hx:: Heart Attack, Hyperlipidemia, Hypertension Review of Systems - Review of Systems Review of systems:: pertinent systems reviewed and negative unless documented below - Constitutional Denies fever(s) - Eyes Denies change in vision - ENT Denies dizziness - *Cardiovascular Denies chest pain - *Respiratory Denies cough - *Gastrointestinal Denies abdominal pain - *Genitourinary Denies b
--- NOTE | 2021-01-23 09:31 | ECG_ITS ---
APPROVED REPORT Exam: Resting ECG HR:112 bpm ECG Measurements Heart Rate 112 AXES NM 144 P 70 QRSd 88 QRS -43 QT 334 T 95 QTc 455 Conclusion Sinus tachycardia Left axis deviation Septal infarct, age undetermined T wave abnormality, consider anterolateral ischemia Abnormal ECG Electronically signed by : Alex Scott MD 01/24/2021 21:08:30
--- NOTE | 2021-01-23 12:25 | PC.NURSE ---
Patient reports subternal chest pain at a level of 8/10, nausea, and some shortness of air, Cardiology notified at this time, Sherri at bedside to evaluate patient, given order to give patient hydromorphone and zofran at this time, medications given, will monitor for resolution of symptoms.
--- NOTE | 2021-01-23 18:22 | PC.NURSE ---
Patient has reported chest pain several times today, at times patient appears diaphoretic, vomiting, describes chest in substernal area all the way across his chest, MD has been notified and came to bedside to evaluate patient, given order for tylenol prn and dc narcotics due to vomiting after medication administration, despite not having any additional narcotics patient has continued to vomit this afternoon, treated with zofran per emar, currently denies any chest pain, vital signs are stable at this time, will continue to monitor.
[2021-01-24] VITALS (9 sets, daily range): BP systolic 83–129; BP diastolic 49–78; PULSE 89–100; RESP 16–27; TEMP 36.7–37.4; O2SAT 94–98; BMI 24.1
--- NOTE | 2021-01-24 08:28 | HMH.PNCARD ---
Subjective Date: 01/24/21 Time: 07:30 Principal diagnosis: STEMI Interval history: 40-year-old male presented to [facility] ED as a STEMI two days ago. Patient did undergo left heart catheterization. Left heart catheterization revealed acute proximal anterior ST elevation myocardial infarction, successful thrombectomy followed by drug-eluting stent deployment to the proximal LAD with 100% occlusion reduced to 0 with 2 contiguous drug-eluting stents. Dilated ventricle with severely reduced EF. Severely elevated LVEDP. Patient was started on Brilinta 90 mg twice daily along with 81 mg aspirin daily. Echocardiogram was obtained. EF noted is 25% with multiple segment wall motion abnormality. Mild MR and TR noted. Low cardiac output was noted. Due to patient's ischemic cardiomyopathy, LifeVest has been approved and therefore waiting for entry level marketing representative to place LifeVest. Discussed with patient's the risk and benefits of wearing LifeVest due to ischemic cardiomyopathy. Patient is agreeable for LifeVest. 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 Blood pressure lower but stable. Right wrist cath site noted with dressing dry and intact. No swelling noted at the site. Patient denies chest pain, tightness or pressure. Patient denies shortness of breath. Patient did have episode yesterday afternoon of diaphoresis and feeling hot. Patient had complained of chest pain across the diaphragm. Dr. Jurado was at bedside. Zofran 4 mg was given IV push for nausea. Patient was given Dilaudid 1 mg IV push for the chest pain. After receiving both medications, patient was vomiting profusely. After a few minutes patient did calm down, and stated he was feeling much better. Nursing staff states patient did have one episode of vomiting throughout the night. This a.m. patient denies nausea or vomiting. Patient states overall he is feeling much better. Patient is on appropriate medication for ischemic cardiomyopathy. Heart rate does remain elevated. We will stop lisinopril. Start Entresto 48 mg / 52 mg twice daily due to ischemic cardiomyopathy. This will need to be started in 36 hours due to lisinopril being given this a.m. Will order CBC and BMP with morning labs. Hopefully patient will be able to be discharged in the a.m., as long as no further episodes occur. Encourage patient to ambulate in room and hallway with assistance. Thank you for allowing cardiology to participate in the care of this patient. Exam Vital signs and Labs for Last 24 Hours: Temp Pulse Resp BP Pulse Ox 98.0 F 99 H 18 110/62 96 01/24/21 04:00 01/24/21 04:00 01/24/21 04:00 01/24/21 04:00 01/24/21 04:00 I & O for Last 24 hours: Intake & Output 01/21/21 01/22/21 01/23/21 01/24/21 23:59 23:59 23:59 23:59 Intake Total 300 / 300 420 / 420 Balance 300 / 300 420 / 420 Weight 150 lb 150 lb 0.005 oz 150 lb 1.6 oz - Constitutional no acute distress, thin, cooperative - *Routine HEENT Exam Head: Present: normocephalic ENT: Present: mucous membranes moist - *Routine Neck Exam Present: supple, full ROM, normal carotid upstroke. Absent: JVD, carotid bruit, lymphadenopathy - Routine Chest/Breast/Axilla Exam Chest wall: Present: tenderness. Absent: mass, pacemaker - *Routine Respiratory Exam Present: accessory muscle use, CTA bilaterally. Absent: stridor, wheezes - *Routine Cardiovascular Exam Present: RRR, Normal S1, Normal S2, tachycardia. Absent: murmur, gallop - *Routine Abdominal Exam Present: soft, normoactive bowel sounds. Absent: tenderness, distended, firm - *Routine Extremities Exam Present: full ROM, pulses intact, normal capillary refill. Absent: edema - *Routine Skin Exam Present: intact, dry, warm. Absent: erythema - *Routine Neurological Exam Present: alert, oriented X3, CN II-XII intact, moving all extremities, normal speech - Routine Psychiatric Exam Present:
--- NOTE | 2021-01-24 09:17 | HMH.ACPN2 ---
Internal Medicine - PN: Subj *Date: 01/24/21 *Time: 08:20 Interval history: pt sitting up in bed, family at bedside. Exam Vital signs and Labs for Last 24 Hours: Temp Pulse Resp BP Pulse Ox 98.0 F 99 H 18 110/62 96 01/24/21 04:00 01/24/21 04:00 01/24/21 04:00 01/24/21 04:00 01/24/21 04:00 I & O for Last 24 hours: Intake & Output 01/21/21 01/22/21 01/23/21 01/24/21 11:59 11:59 11:59 11:59 Intake Total 540 / 540 180 / 180 Balance 540 / 540 180 / 180 Weight 140 lb 150 lb 0.005 oz 150 lb 1.6 oz - Constitutional no acute distress - *Routine HEENT Exam Head: Present: normocephalic Eye: Present: PERRL ENT: Present: mucous membranes moist - *Routine Neck Exam Present: supple. Absent: lymphadenopathy - *Routine Respiratory Exam Present: CTA bilaterally - *Routine Cardiovascular Exam Present: RRR - *Routine Abdominal Exam Present: soft, normoactive bowel sounds. Absent: tenderness - *Routine Extremities Exam Present: normal capillary refill. Absent: cyanosis, clubbing, edema - *Routine Skin Exam Present: warm. Absent: rash - *Routine Neurological Exam Present: alert, oriented X3 - Routine Psychiatric Exam Present: normal affect Assessment and Plan (1) Left elbow pain Status: Acute Category: Medical Code(s): M25.522 - Pain in left elbow (2) STEMI (ST elevation myocardial infarction) Status: Acute Qualifiers: Involved coronary artery: unspecified coronary artery Qualified Code(s): I21.3 - ST elevation (STEMI) myocardial infarction of unspecified site Category: Medical Code(s): I21.3 - ST elevation (STEMI) myocardial infarction of unspecified site (3) Left arm numbness Status: Acute Category: Medical Code(s): R20.0 - Anesthesia of skin (4) COVID-19 Status: Acute Category: Medical Code(s): U07.1 - COVID-19 (5) LVH (left ventricular hypertrophy) Status: Acute Category: Medical Code(s): I51.7 - Cardiomegaly (6) Low cardiac output syndrome Status: Acute Category: Medical Code(s): I50.9 - Heart failure, unspecified (7) Tobacco use Status: Acute Category: Social Hx Code(s): Z72.0 - Tobacco use - Assessment and plan all Dx Assessment and Plan for all problems:: rounded with dr laureano all orders per dr laureano life vest today- echo 25%
--- NOTE | 2021-01-24 18:59 | PC.NURSE ---
pt's VSS, pt had life vest placed this shift, tolerating vest well, no nausea or pain reported this shift, as long as pt has no issues overnight should go home tomorrow, pt resting in bed with family present
[2021-01-25] VITALS: BP 96/57; PULSE 90; PULSE 95; RESP 16; TEMP 37.4; O2SAT 96
[2021-01-25 04:00] VITALS: BP 114/73; PULSE 105; PULSE 90; RESP 20; TEMP 36.7; O2SAT 94
[2021-01-25 05:03] VITALS: BMI 24.0
[2021-01-25 06:34] LABS: Basophils % 0.4 % (0.1-2.0); Eosinophils % 0.3 % (0.1-12.0); Hematocrit 44.9 % (42.0-52.0); Hemoglobin 15.4 g/dL (14.1-18.0); Lymphocytes # 1.3 K/mm3 (0.7-4.5); Lymphocytes % 12.4 % (10-50); Mean Corpuscular HGB Conc 34.3 g/dL (31.8-35.4); Mean Corpuscular Hemoglobin 30.7 pg (27.0-31.2); Mean Corpuscular Volume 89.6 fl (80-94); Mean Platelet Volume 8.8 fl (7.4-10.4); Monocytes # 0.9 K/mm3 (0.1-1.0); Monocytes % 8.5 % (1.7-9.3); Neutrophils # 8.1 K/mm3 (1.8-7.8); Neutrophils % 78.4 % (37.0-80.0); Platelet Count 272 K/mm3 (142-424); Red Blood Count 5.01 M/mm3 (4.60-6.20); Red Cell Distribution Width 13.4 % (11.5-17.5); White Blood Count 10.3 K/mm3 (4.8-10.8)
[2021-01-25 06:41] LABS: Anion Gap 11.7 mEq/L (5-15); Blood Urea Nitrogen 16 mg/dl (9-20); Calcium 9.3 mg/dl (8.4-10.2); Carbon Dioxide 27 mmol/L (22.0-30.0); Chloride 100 mmol/L (98-107); Creatinine Clearance Estimated 118 mL/min (50-200); Estimated Glomerular Filt Rate 107 ml/min (>60); GFR (African American) 130 ML/MIN (>60); Glucose 123 mg/dl (74-100); Potassium 3.7 mmoL/L (3.5-5.1); Sodium 135 mmol/L (136-145)
[2021-01-25 08:00] VITALS: BP 120/77; PULSE 90; PULSE 96; RESP 16; TEMP 37.1; O2SAT 98
--- NOTE | 2021-01-25 09:24 | HMH.PNCARD ---
Subjective Date: 01/25/21 Time: 08:00 Principal diagnosis: STEMI Interval history: 40-year-old male presented to [facility] ED as a STEMI three days ago. Patient did undergo left heart catheterization. Left heart catheterization revealed acute proximal anterior ST elevation myocardial infarction, successful thrombectomy followed by drug-eluting stent deployment to the proximal LAD with 100% occlusion reduced to 0 with 2 contiguous drug-eluting stents. Dilated ventricle with severely reduced EF. Severely elevated LVEDP. Patient was started on Brilinta 90 mg twice daily along with 81 mg aspirin daily. Echocardiogram was obtained. EF noted is 25% with multiple segment wall motion abnormality. Mild MR and TR noted. Low cardiac output was noted. Due to patient's ischemic cardiomyopathy, LifeVest is in place. Patient is tolerating LifeVest without any difficulty. Discussed with patient's the risk and benefits of wearing LifeVest due to ischemic cardiomyopathy. personnel monitor reveals sinus rhythm with heart rate of 80 bpm. Blood pressure stable this a.m. Right wrist cath site noted with dressing dry and intact. No swelling noted at the site. Patient denies chest pain, tightness or pressure. Patient denies shortness of breath. Patient denies nausea/ vomiting. Patient may be discharged home today. Discussed with patient no strenuous activity or heavy lifting due to ischemic cardiomyopathy. Encourage patient to wear LifeVest continuously. Patient will be discharged home on aspirin 81 mg p.o. daily, carvedilol 12.5 mg twice daily p.o., Entresto 49 mg / 51 mg twice daily p.o., atorvastatin 40 mg daily p.o. and Brilinta 90 mg p.o. twice daily. Encouraged patient to take medications as prescribed due to his severe ischemic cardiomyopathy. Patient verbalized understanding. Patient is to follow-up with cardiology in 1 week or sooner if signs and symptoms develop. Thank you for allowing cardiology to participate in the care of this patient. Exam Vital signs and Labs for Last 24 Hours: Temp Pulse Resp BP Pulse Ox 98.7 F 96 H 16 120/77 98 01/25/21 08:00 01/25/21 08:00 01/25/21 08:00 01/25/21 08:00 01/25/21 08:00 Laboratory Results - last 24 hr 01/25/21 05:45: WBC 10.3, RBC 5.01, Hgb 15.4, Hct 44.9, MCV 89.6, MCH 30.7, MCHC 34.3, RDW 13.4, Plt Count 272, MPV 8.8, Neut % (Auto) 78.4, Lymph % (Auto) 12.4, [place] % (Auto) 8.5, Eos % (Auto) 0.3, Baso % (Auto) 0.4, Neut # (Auto) 8.1 H, Lymph # (Auto) 1.3, [place] # (Auto) 0.9, Eos # (Auto) 0.0, Baso # (Auto) 0.0 01/25/21 05:45: Sodium 135 L, Potassium 3.7, Chloride 100, Carbon Dioxide 27, Anion Gap 11.7, BUN 16, Creatinine 0.80, Estimated Creat Clear 118, Estimated GFR 107, Est GFR ( Amer) 130 D, Glucose 123 H, Calcium 9.3 I & O for Last 24 hours: Intake & Output 01/22/21 01/23/21 01/24/21 01/25/21 23:59 23:59 23:59 23:59 Intake Total 300 / 300 420 / 420 720 / 720 Balance 300 / 300 420 / 420 720 / 720 Weight 150 lb 150 lb 0.005 oz 150 lb 1.6 oz 149 lb 8 oz - Constitutional no acute distress, thin, cooperative - *Routine HEENT Exam Head: Present: normocephalic ENT: Present: mucous membranes moist - *Routine Neck Exam Present: supple, full ROM, normal carotid upstroke. Absent: JVD, carotid bruit, lymphadenopathy - *Routine Respiratory Exam Present: accessory muscle use, CTA bilaterally. Absent: wheezes, crackles - *Routine Cardiovascular Exam Present: RRR, Normal S1, Normal S2. Absent: murmur, rubs, tachycardia, irregular rhythm - *Routine Abdominal Exam Present: soft, normoactive bowel sounds. Absent: tenderness, firm - *Routine Extremities Exam Present: full ROM, pulses intact, normal capillary refill. Absent: edema - *Routine Skin Exam Present: intact, dry, warm. Absent: erythema, lesions - *Routine Neurological Exam Present: alert, oriented X3, CN II-XII intact, moving all extremities, normal speech - Routine P
--- NOTE | 2021-01-25 10:37 | HMH.DCSUM ---
General - General Admission date:: 01/22/21 Discharge date: 01/25/21 HPI HPI: this patient presented to [facility] state that he has been having pain on and off in his left elbow since State that it feels like a pinched nerve and feels achy like a toothache State that he also has pain in his armpit area that feels like he may have pulled something and pain is worse with movement and that the area feels swollen States that pain got worse this morning so he came in to get checked on viewing EKG immediately took EKG to ED physician Dr Iqbal he viewed and agreed to move patient to ED immediately 1010 Patient came to door of room, Patient states that pain in armpit area and elbow aching States that pain is causing him to sweat and the pain has been making him feel sick at his stomach on and off and he was patient holding elbow. Denies radiation of pain will give IM Toradol to see if helps with pain Patient still awaiting xray no distress 1045 patient states that medication is not helping Pain States that the pain is not moving anywhere just in his armpit/side area and elbow Patient sitting in chair States that pain is making him feel hot and he feels like he is getting nervous and anxious like he is having a panic attack no distress talking with staff 1053 patient appears anxious sweating and moving around in chair. States that pain is still not improved and feeling hot all over Patient was sweating profusely and states that he is feeling nauseous reports Pain is worse in his armpit area and feels like it is deep inside there holding armpit area. States that he feels anxious and cold Patient appeared pale in color and states that pain is continuing to get worse and feels different then what it did when he got here, Due to changes in pain, patient appearing anxious and diaphoretic EKG obtained and revealed abnormal finding with ST elevation noted and concern for STEMI Immediately took the EKG to the ED and showed and Discussed with ED physician Dr Iqbal and patient immediately transfered to the ED for further treatment via wheel chair pt was seen in the ed-is is a 40-year-old male presented to the emergency department with some left-sided elbow pain that has been going on for the last 3 days. Patient states that he felt some discomfort in his left elbow on the medial side. He denies any injury that he is aware of. The dull nagging pain. States that occasionally gets some sharp pains that radiate up into his left armpit. Patient states that the pains have been intermittent since the last 3 days. Denies any trauma to the area. Is not have any palpitations. No associated shortness of breath, cough or hemoptysis. No other chest pain. Is not have any headache or change in vision. No focal weakness. No abdominal pain or vomiting. No diarrhea. pt had abn ekg which was felt to be acute stemi Hospital Course Hospital Course: pt has life vest in place Laboratory Tests 01/22/21 01/22/21 01/22/21 11:08 11:08 11:08 WBC 11.7 H RBC 5.66 Hgb 17.3 Hct 52.6 H MCV 93.0 MCH 30.6 MCHC 32.8 RDW 13.5 Plt Count 341 MPV 8.3 Neut % (Auto) 78.6 Lymph % (Auto) 15.3 [place] % (Auto) 4.2 Eos % (Auto) 0.6 Baso % (Auto) 1.2 Neut # (Auto) 9.2 H Lymph # (Auto) 1.8 [place] # (Auto) 0.5 Eos # (Auto) 0.1 Baso # (Auto) 0.1 PT 10.6 INR 0.89 L APTT 26.2 Activated Clotting Time Sodium 140 Potassium 4.6 Chloride 103 Carbon Dioxide 27 Anion Gap 14.6 BUN 13 Creatinine 1.00 Estimated Creat Clear 88 Estimated GFR 83 Est GFR ( Amer) 100 Glucose 167 H Calcium 10.0 Total Bilirubin 0.5 AST 64 H ALT 61 Alkaline Phosphatase 101 Troponin I 1.41 H NT-Pro-B Natriuret Pep Total Protein 8.4 H Albumin 4.8 Globulin 3.6 H Albumin/Globulin Ratio 1.3 SARS-CoV-2 (PCR) Influenza A Untype (PCR) Influenz
--- NOTE | 2021-01-25 11:18 | HMH.PHACLD ---
Murray Naidu has received discharge medication counseling on the following medications: -ASA (BLEED RISK, TAKE WITH FOOD IN THE AM) -ATORVASTATIN (TAKE HS, WATCH FOR MUSCLE PAIN + CONTACT MD IF OCCURS) -CARVEDILOL (WATCH FOR DIZZINESS, MAY TAKE WITH FOOD AM AND PM) -ENTRESTO (WATCH FOR DIZZINESS, RISE SLOWLY FROM SITTING TO STANDING) -BRILINTA (BLEED RISK, WATCH FOR BLOOD WHERE IT SHOULDN'T BE, SEE MD IF YOU BUMP YOUR HEAD, ETC)
== END 2021-01-25 11:31 | disposition home or self-care (01) | DRG 246 ==
LOC: ER 09:23 → UTC 09:23 → ER 11:01 → CATHLAB 11:33 → 2ND 12:06
PROVIDERS: Emergency Medicine; Urology; Admitting Provider Internal Medicine; Emergency Provider Nurse Practitioner; Visit Provider Family Medicine
PROC: 027035Z Dilation of Coronary Artery, One Artery with Two Drug-eluting Intraluminal Devices, Percutaneous Approach (ICD-10-PCS; principal; 2021-01-22 11:30)
DX: I21.02 ST elevation (STEMI) myocardial infarction involving left anterior descending coronary artery (principal); U07.1 COVID-19; I25.10 Atherosclerotic heart disease of native coronary artery without angina pectoris; F17.210 Nicotine dependence, cigarettes, uncomplicated; I51.7 Cardiomegaly; Z79.899 Other long term (current) drug therapy; I25.82 Chronic total occlusion of coronary artery; I25.5 Ischemic cardiomyopathy; I50.9 Heart failure, unspecified; R11.0 Nausea
CPT/HCPCS: 36415; 80048; 80053; 83880; 84484; 85025; 85347; 85610; 85730; 92941; 93005; 93306; 93458; 96365; 96372; 96375; 99152; 99153; 99291; C1725; C1769; C1874; C1876; C9606; C9803; J1644; J2405; Q9967; U0003; U0005

== ENCOUNTER → 2021-01-30 11:57 | Outpatient (CLI) | payer MEDICAID, SELFPAY ==
[2021-01-30 12:08] LABS: Basophils # 0.1 K/mm3 (0-0.2); Basophils % 1.2 % (0.1-2.0); Eosinophils # 0.1 K/mm3 (0.0-0.4); Eosinophils % 1.4 % (0.1-12.0); Lymphocytes # 1.5 K/mm3 (0.7-4.5); Lymphocytes % 16.1 % (10-50); Mean Corpuscular HGB Conc 31.9 g/dL (31.8-35.4); Mean Corpuscular Hemoglobin 29.7 pg (27.0-31.2); Mean Corpuscular Volume 93.1 fl (80-94); Mean Platelet Volume 8.7 fl (7.4-10.4); Monocytes # 0.5 K/mm3 (0.1-1.0); Monocytes % 5.7 % (1.7-9.3); Neutrophils # 6.9 K/mm3 (1.8-7.8); Neutrophils % 75.7 % (37.0-80.0); Platelet Count 345 K/mm3 (142-424); Red Blood Count 5.05 M/mm3 (4.60-6.20); Red Cell Distribution Width 13.2 % (11.5-17.5); White Blood Count 9.1 K/mm3 (4.8-10.8)
[2021-01-30 12:15] LABS: Chloride 102 mmol/L (98-107); Potassium 4.6 mmoL/L (3.5-5.1); Sodium 138 mmol/L (136-145)
[2021-01-30 12:18] LABS: Blood Urea Nitrogen 11 mg/dl (9-20); Estimated Glomerular Filt Rate 107 ml/min (>60); GFR (African American) 130 ML/MIN (>60)
[2021-01-30 12:19] LABS: Anion Gap 9.6 mEq/L (5-15); Calcium 9.1 mg/dl (8.4-10.2); Carbon Dioxide 31 mmol/L (22.0-30.0); Glucose 108 mg/dl (74-100)
== END ==
PROVIDERS: Visit Provider Family Medicine
DX: M25.522 Pain in left elbow (principal)
CPT/HCPCS: 36415; 80048; 82565; 84520; 85014; 85018; 85025

== ENCOUNTER 2021-02-20 15:12 | Outpatient (RCR) | payer MEDICAID, SELFPAY | END 2021-04-27 15:15 | disposition home or self-care (01) | LOC: PT 15:12 | PROVIDERS: Visit Provider Internal Medicine | DX: I25.10 Atherosclerotic heart disease of native coronary artery without angina pectoris (principal); Z95.5 Presence of coronary angioplasty implant and graft | CPT/HCPCS: 93798 ==

== ENCOUNTER 2021-02-22 06:13 | Emergency (ER) | payer MEDICAID, SELFPAY ==
[2021-02-22 06:14] VITALS: BP 124/90; PULSE 67; RESP 16; TEMP 36.4; O2SAT 100; BMI 25.0
--- NOTE | 2021-02-22 06:30 | ECG_ITS ---
APPROVED REPORT Exam: Resting ECG HR:60 bpm ECG Measurements Heart Rate 60 AXES LA 156 P 68 QRSd 82 QRS 87 QT 408 T 104 QTc 408 Conclusion Normal sinus rhythm Low voltage QRS Septal infarct, age undetermined Abnormal ECG Electronically signed by : Alex Scott MD 02/23/2021 14:29:20
--- NOTE | 2021-02-22 06:35 | XR_ITS ---
PROCEDURE INFORMATION: Exam: XR Chest Exam date and time: 02/22/2021 6:35 AM Age: 40 years old Clinical indication: Patient HX: Dizziness, cardiac HX; Additional info: Cardiac HX w/ dizziness TECHNIQUE: Imaging protocol: XR of the chest. Views: 2 views. COMPARISON: CR XR CHEST PORTABLE 04/06/2020 4:21 PM FINDINGS: Lungs: Unremarkable. No consolidation. Pleural spaces: Unremarkable. No pleural effusion. No pneumothorax. Heart/Mediastinum: Unremarkable. No cardiomegaly. Bones/joints: Unremarkable. IMPRESSION: No acute findings.
[2021-02-22 06:53] LABS: Alanine Aminotransferase 93 U/L (12-78); Albumin Level 4.5 g/dl (3.5-5.0); Alkaline Phosphatase 102 U/L (38-126); Anion Gap 14.6 mEq/L (5-15); Aspartate Amino Transferase 60 U/L (17-59); Bilirubin,Direct 0.5 mg/dl (0.0-0.4); Bilirubin,Total 0.5 mg/dl (0.2-1.3); Blood Urea Nitrogen 13 mg/dl (9-20); Calcium 9.5 mg/dl (8.4-10.2); Carbon Dioxide 27 mmol/L (22.0-30.0); Chloride 103 mmol/L (98-107); Creatinine Clearance Estimated 108 mL/min (50-200); Estimated Glomerular Filt Rate 93 ml/min (>60); GFR (African American) 113 ML/MIN (>60); Glucose 123 mg/dl (74-100); Potassium 4.6 mmoL/L (3.5-5.1); Sodium 140 mmol/L (136-145); Total Protein,Serum 7.7 g/dl (6.3-8.2)
[2021-02-22 06:57] LABS: Basophils # 0.1 K/mm3 (0-0.2); Basophils % 1.4 % (0.1-2.0); Eosinophils # 0.1 K/mm3 (0.0-0.4); Eosinophils % 1.7 % (0.1-12.0); Hematocrit 48.8 % (42.0-52.0); Hemoglobin 16.2 g/dL (14.1-18.0); Lymphocytes # 1.8 K/mm3 (0.7-4.5); Lymphocytes % 23.2 % (10-50); Mean Corpuscular HGB Conc 33.2 g/dL (31.8-35.4); Mean Corpuscular Hemoglobin 30.6 pg (27.0-31.2); Mean Corpuscular Volume 92.2 fl (80-94); Mean Platelet Volume 8.5 fl (7.4-10.4); Monocytes # 0.5 K/mm3 (0.1-1.0); Neutrophils # 5.1 K/mm3 (1.8-7.8); Neutrophils % 66.7 % (37.0-80.0); Platelet Count 244 K/mm3 (142-424); Red Blood Count 5.29 M/mm3 (4.60-6.20); Red Cell Distribution Width 13.9 % (11.5-17.5); White Blood Count 7.6 K/mm3 (4.8-10.8)
--- NOTE | 2021-02-22 07:00 | PC.NURSE ---
Received report CHRISTIANO Russell
[2021-02-22 07:05] LABS: C-Reactive Protein < 0.3 mg/L (0-4)
[2021-02-22 07:09] LABS: Troponin I < 0.01 ng/ml (0.00-0.034)
[2021-02-22 07:12] LABS: Procalcitonin 0.043 ng/mL (0.0-2.0)
--- NOTE | 2021-02-22 07:14 | HMH.EDDIZZ ---
ED Disposition Clinical Impression: Dizziness CAD (coronary artery disease) Qualifiers: Coronary Disease-Associated Artery/Lesion type: unspecified vessel or lesion type [place] vs. transplanted heart: [place] heart Associated angina: without angina Qualified Code(s): I25.10 - Atherosclerotic heart disease of [place] coronary artery without angina pectoris Disposition: Home, Self-Care Condition on Discharge: Good Instructions: Dizziness, Nonvertigo Additional Instructions: see card for follow up Referrals: Provider,Referral, [Primary Care Provider] - - Critical Care Critical Care Time: No Attestation: On 02/22/21, the high probability of a clinically significant, sudden or life threatening deterioration of the following system(s) required my full and direct attention, intervention and personal management. The time I documented below is in addition to time spent performing reported procedures but includes the following listed in this critical care notation. Medical Decision Making - Medical Records Medical records reviewed: Yes: I reviewed the patient's medical records. - Scott Inquiry Pt receiving controlled substance: No Vital Signs: 02/22/21 06:14 02/22/21 07:50 Temperature 97.6 F Temperature Source Oral Pulse Rate 68 Pulse Rate [Right Radial] 67 Respiratory Rate 16 16 Blood Pressure 117/78 Blood Pressure [Right Arm] 124/90 Blood Pressure Mean [Right Arm] 101 Blood Pressure Source Automatic Cuff Blood Pressure Source [Right Arm] Automatic Cuff Blood Pressure Position Sitting Blood Pressure Position [Right Arm] Sitting 02 Sat by Pulse Oximetry 100 98 Oxygen Delivery Method Room Air Room Air - Lab Data Lab results reviewed: Yes: I reviewed the patient's lab results. Lab Results 02/22/21 06:29: WBC 7.6, RBC 5.29, Hgb 16.2, Hct 48.8, MCV 92.2, MCH 30.6, MCHC 33.2, RDW 13.9, Plt Count 244, MPV 8.5, Neut % (Auto) 66.7, Lymph % (Auto) 23.2, [place] % (Auto) 7.0, Eos % (Auto) 1.7, Baso % (Auto) 1.4, Neut # (Auto) 5.1, Lymph # (Auto) 1.8, [place] # (Auto) 0.5, Eos # (Auto) 0.1, Baso # (Auto) 0.1, ESR 1 02/22/21 06:29: Sodium 140, Potassium 4.6, Chloride 103, Carbon Dioxide 27, Anion Gap 14.6, BUN 13, Creatinine 0.90, Estimated Creat Clear 108, Estimated GFR 93, Est GFR ( Amer) 113, Glucose 123 H, Calcium 9.5, Total Bilirubin 0.5, Direct Bilirubin 0.5 H, Conjugated Bilirubin 0.0, Indirect Bilirubin 0.0, Unconjugated Bilirubin 0.0, AST 60 H, ALT 93 H, Alkaline Phosphatase 102, Troponin I < 0.01, C-Reactive Protein < 0.3, Total Protein 7.7, Albumin 4.5, Procalcitonin 0.043 Result diagrams: 02/22/21 06:29 02/22/21 06:29 Orders (Tests/Meds): ORDERS Category Date Time Status XR chest 2V Stat Exams 02/22/21 06:35 Taken Troponin I Q3H Lab 02/22/21 09:45 Ordered Troponin I Q3H Lab 02/22/21 12:45 Ordered - Radiology Data #1 Image(s): Chest Image Reviewed: Yes I reviewed the patient's radiology image Preliminary Findings: Normal/NAD - ECG Data Tracing #1 Normal Sinus Rhythm: Yes Ischemic changes: non-specific ST-T wave changes - Physician Consults Physician Consulted: sangeeta steiner Reason -: Pt condition - MONET Score for Non-Stemi Age of Patient: 40-49 years old Heart Rate: 50-69 bpm Systolic Blood Pressure: 120-139 mmhg Serum Creatinine: 0.80-1.19 mg/dl CHF [place] Class: I-No CHF Other Risk Factors: None Non-Stemi Risk Score: 69 Dizzy HPI - General Chief Complaint: Dizziness Stated Complaint: dizziness,hot and cold on heart monitor Time Seen by Provider: 02/22/21 06:30 Mode of Arrival: Ambulatory Source of Information: Patient, Medical Record Limitations: No Limitations Description of Symptoms (Recalled from ER Triage Doc. by RN): Pt c/o being dizzy and going from hot to cold since last night. Pt reports having his dose of entresto increased last week. Pt denies chest pain. Denies SOA. Denies N/V/D. Denies cough. - History of Present Illness HPI Narrat
[2021-02-22 07:19] LABS: Erythrocyte Sedimentation Rate 1 mm/hr (0-15)
[2021-02-22 07:50] VITALS: BP 117/78; PULSE 68; RESP 16; O2SAT 98
[2021-02-22 08:00] VITALS: BP 120/91; PULSE 64; RESP 18; O2SAT 97
--- NOTE | 2021-02-22 08:09 | PC.NURSE ---
Notified cardiology pt needed to be seen.
--- NOTE | 2021-02-22 08:58 | PC.NURSE ---
Jamie Benites at bedside
[2021-02-22 09:25] VITALS: BP 129/97; PULSE 60; RESP 16; TEMP 36.6; O2SAT 97
--- NOTE | 2021-02-22 09:32 | HMH.CNCARD ---
History of Present Illness Consult date: 02/22/21 Requesting physician: Johnnie Winkler Chief complaint: Dizziness Additional Medical History:: 1. Coronary disease A. ST elevation [place], 01/22/2021 with subsequent thrombectomy and coronary stenting. B. Cardiomyopathy, LifeVest applied 2. Hyperlipidemia 3. Tobacco use 4. Elevated LFT's, 02/22/2021 History of present illness: 40-year-old white male with recent ST elevation NV and subsequent coronary stenting now with LifeVest in place for ischemic cardiomyopathy presented to the emergency department for evaluation of recurrent dizziness/lightheadedness without syncope. He denies any chest pain, pressure, tightness or palpitations. He maintains compliance with his medications and wears his LifeVest nearly 100% of the time. He states he is even foregoing a shower for several days in fear of taking off the LifeVest. ER evaluation today shows chest x-ray unremarkable and lab work essentially normal except mildly elevated LFTs. Blood pressure in the ER is around 117/88 with heart rate in the 60 to 80 bpm range. Recent increase in his Entresto last week. Patient relates systolic pressures in the 90s at home but asymptomatic. 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 He has been drinking more Gatorade in place of his previous AL 8 drinks. We did access the [employer] website, patient is near 100% compliant and has had no significant arrhythmias. I have instructed the patient to reduce his carvedilol to 6.25 mg twice daily in favor of increasing the Entresto as instructed last week. I have asked him to follow-up with us next week on Friday after his cardiac rehab appointment. [facility] History Medical History: Denies:: Cancer, Diabetes Mellitus Type 1, Diabetes Mellitus Type 2, MRSA *Have you ever received a pneumonia vaccine?: No *Have you received a flu vaccine this season?: No Other Surgeries: Yes: Cardiac Catheterization, Coronary Stent Amputation: No Fractures: No - *Social History Smoking Status: Never smoker Alcohol Intake: never Substance Use Type: marijuana *Occupational Status:: employed Housing: apartment Household Members: significant other *Travel in the last 8 weeks: Inside the [facility] Family Hx:: Heart Attack, Hyperlipidemia, Hypertension Meds Home Medications Medication Instructions Recorded Confirmed Type Aspirin [Low Dose Aspirin EC] 81 mg PO DAILY 02/22/21 02/22/21 History Atorvastatin Calcium [Lipitor 40mg 40 mg PO HS 02/22/21 02/22/21 History Tab] Sacubitril/Valsartan [Entresto] 1 tab PO BID 02/22/21 02/22/21 History Ticagrelor [Brilinta 90mg 90 mg PO BID 02/22/21 02/22/21 History Tablet] carvediloL [Carvedilol 12.5mg Tab] 12.5 mg PO BID 02/22/21 02/22/21 History Allergies Allergy/AdvReac Type Severity Reaction Status Date / Time codeine AdvReac Verified 02/13/21 14:20 morphine AdvReac Verified 02/13/21 14:20 Exam Vital signs and Labs for Last 24 Hours: Temp Pulse Resp BP Pulse Ox 97.6 F 64 18 120/91 H 97 02/22/21 06:14 02/22/21 08:00 02/22/21 08:00 02/22/21 08:00 02/22/21 08:00 Laboratory Results - last 24 hr 02/22/21 06:29: WBC 7.6, RBC 5.29, Hgb 16.2, Hct 48.8, MCV 92.2, MCH 30.6, MCHC 33.2, RDW 13.9, Plt Count 244, MPV 8.5, Neut % (Auto) 66.7, Lymph % (Auto) 23.2, [place] % (Auto) 7.0, Eos % (Auto) 1.7, Baso % (Auto) 1.4, Neut # (Auto) 5.1, Lymph # (Auto) 1.8, [place] # (Auto) 0.5, Eos # (Auto) 0.1, Baso # (Auto) 0.1, ESR 1 02/22/21 06:29: Sodium 140, Potassium 4.6, Chloride 103, Carbon Dioxide 27, Anion Gap 14.6, BUN 13, Creatinine 0.90, Estimated Creat Clear 108, Estimated GFR 93, Est GFR ( Amer) 113, Glucose 123 H, Calcium 9.5, Total Bilirubin 0.5, Direct Bilirubin 0.5 H, Conjugated Bilirubin 0.0, Indirect Bilirubin 0.0, Unconjugated Bilirubin 0.0, AST 60 H, ALT 93 H, Alkaline Phosphatase 102, Troponin I < 0.01, C-Reactive Protein < 0.3, Total Protein 7.7, Albumin 4.5, Procalcitonin
== END 2021-02-22 09:25 | disposition home or self-care (01) ==
PROVIDERS: Emergency Provider Emergency Medicine
DX: R42 Dizziness and giddiness (principal); I50.9 Heart failure, unspecified; I25.10 Atherosclerotic heart disease of native coronary artery without angina pectoris; Z79.899 Other long term (current) drug therapy
CPT/HCPCS: 71046; 80048; 80076; 84145; 84484; 85025; 85651; 86140; 93005; 99282

== ENCOUNTER → 2021-03-07 08:57 | Outpatient (CLI) | payer MEDICAID, SELFPAY ==
--- NOTE | 2021-03-07 08:58 | CA_ITS ---
APPROVED REPORT EXAM: Comprehensive 2D, Doppler, and color-flow Echocardiogram Line Rider: Liza Vega RT(R) Ht: 5 ft 6 in Wt: 158lbs BSA: 1.81 BP: 111/80 mmHg Indications: EF check for lifevest removal, PHTN, LVH, hx STEMI, chronic CHF, ischemic CM, EF 25% on echo 01/22/21. M-Mode Dimensions RVDd 2.69 cm (0.9-2.6) LVDd 4.85 cm (3.5-5.7) LVDs 4.05 cm (3.5-5.7) IVSd 0.84 cm (0.6-1.1) PWd 0.85 cm (0.6-1.1) EF (Teich) 34.60% FS 16.50% EDV (Teich) 110.20 mL ESV (Teich) 72.10 mL LV Diastology E Decel Time 197.00 (160-240 msec) E/A Ratio 0.7 MED E' 9.20 (< 7 cm/sec) E'/MED E' Ratio 5.21 (>14) LAT E' 8.20 (<10 cm/sec) E/LAT E' Ratio 5.84 (>14) Mitral Valve MV E Max Andrea. 48.00 (40-130 cm/s) MV A Velocity 66.00 (40-130 cm/s) E/A Ratio 0.73 MV Decel. Time 197.00 (160-240 ms) MV PHT 58.00 ms Conclusion 1. Limited echocardiogram was performed to evaluate left ventricular systolic function, left atrium is mildly enlarged, left ventricle is normal size mild concentric left ventricular hypertrophy, visually estimated ejection fraction 40%, left ventricle is globally hypokinetic. 2. No significant pericardial effusion noted. Electronically signed by : Isai Brown MD 03/08/2021 13:58:40
== END ==
PROVIDERS: PCP Internal Medicine; Visit Provider Physician Assistant
DX: I42.9 Cardiomyopathy, unspecified (principal); I25.10 Atherosclerotic heart disease of native coronary artery without angina pectoris; I51.7 Cardiomegaly; I50.20 Unspecified systolic (congestive) heart failure; E78.5 Hyperlipidemia, unspecified; Z72.0 Tobacco use
CPT/HCPCS: 93308

== ENCOUNTER 2021-03-26 10:54 | Emergency (ER) | payer MEDICAID, SELFPAY ==
--- NOTE | 2021-03-26 10:38 | ECG_ITS ---
APPROVED REPORT Exam: Resting ECG HR:63 bpm ECG Measurements Heart Rate 63 AXES SC 130 P 54 QRSd 82 QRS 48 QT 396 T 81 QTc 405 Conclusion Normal sinus rhythm Old septal changes Abnormal ECG Electronically signed by : Alex Scott MD 03/26/2021 14:19:47
--- NOTE | 2021-03-26 10:56 | XR_ITS ---
PROCEDURE: XR CHEST PORTABLE CLINICAL HISTORY: syncope COMPARISON: CR XR CHEST PORTABLE from 04/06/2020 CR XR CHEST 2V from 02/22/2021 FINDINGS: The cardiomediastinal silhouette and pulmonary vascularity are within normal limits. The lungs are clear without infiltrates, suspicious nodules, or pleural effusions. No acute bony abnormalities. IMPRESSION: No acute findings. Dictated by: Josep Bhatti MD 03/26/2021 11:53 Josep Bhatti MD in [place] 03/26/2021 11:53
[2021-03-26 11:06] VITALS: BP 100/62; PULSE 70; RESP 16; TEMP 36.4; O2SAT 98; BMI 25.0
[2021-03-26 11:12] LABS: Basophils # 0.1 K/mm3 (0-0.2); Basophils % 1.4 % (0.1-2.0); Eosinophils # 0.1 K/mm3 (0.0-0.4); Eosinophils % 1.9 % (0.1-12.0); Hematocrit 44.4 % (42.0-52.0); Hemoglobin 15.6 g/dL (14.1-18.0); Lymphocytes # 2.1 K/mm3 (0.7-4.5); Lymphocytes % 28.1 % (10-50); Mean Corpuscular HGB Conc 35.1 g/dL (31.8-35.4); Mean Corpuscular Hemoglobin 30.3 pg (27.0-31.2); Mean Corpuscular Volume 86.2 fl (80-94); Mean Platelet Volume 8.5 fl (7.4-10.4); Monocytes # 0.5 K/mm3 (0.1-1.0); Neutrophils # 4.6 K/mm3 (1.8-7.8); Neutrophils % 61.6 % (37.0-80.0); Platelet Count 341 K/mm3 (142-424); Red Blood Count 5.15 M/mm3 (4.60-6.20); Red Cell Distribution Width 14.1 % (11.5-17.5); White Blood Count 7.5 K/mm3 (4.8-10.8)
[2021-03-26 11:16] LABS: Chloride 106 mmol/L (98-107); Potassium 4.4 mmoL/L (3.5-5.1); Sodium 140 mmol/L (136-145)
[2021-03-26 11:18] LABS: Blood Urea Nitrogen 12 mg/dl (9-20); Creatinine Clearance Estimated 101 mL/min (50-200); Estimated Glomerular Filt Rate 83 ml/min (>60); GFR (African American) 100 ML/MIN (>60)
[2021-03-26 11:19] LABS: Alanine Aminotransferase 53 U/L (12-78); Albumin Level 4.7 g/dl (3.5-5.0); Albumin/Globulin Ratio 1.7 (1.1-1.8); Alkaline Phosphatase 100 U/L (38-126); Anion Gap 18.4 mEq/L (5-15); Aspartate Amino Transferase 40 U/L (17-59); Bilirubin,Total 0.4 mg/dl (0.2-1.3); Calcium 10.2 mg/dl (8.4-10.2); Carbon Dioxide 20 mmol/L (22.0-30.0); Globulin 2.7 g/dL (1.3-3.2); Glucose 108 mg/dl (74-100); Total Protein,Serum 7.4 g/dl (6.3-8.2)
[2021-03-26 11:29] LABS: NT Pro Brain Natriuretic Pep. 177 pg/mL (0-125)
[2021-03-26 11:30] VITALS: BP 91/62; PULSE 75; RESP 16; O2SAT 95
[2021-03-26 11:31] LABS: Troponin I 0.02 ng/ml (0.00-0.034)
[2021-03-26 11:46] LABS: Coronavirus 19, PCR Not Detected (NotDetected); Influenza A, PCR Not Detected (NotDetected); Influenza B, PCR Not Detected (NotDetected)
[2021-03-26 12:00] VITALS: BP 95/60; PULSE 70; RESP 16; O2SAT 97
--- NOTE | 2021-03-26 12:22 | HMH.EDGENADL ---
ED Disposition Clinical Impression: Vasovagal syncope Disposition: Home, Self-Care Condition on Discharge: Good Instructions: DI for Syncope in Adults (Fainting), DI for Syncope in Children (Fainting) Referrals: Provider,Julien, [Primary Care Provider] - Kashif Jurado MD [Staff Physician] - (Call for an appointment) Time of Disposition: 12:27 - Critical Care Critical Care Time: No Attestation: On 03/26/21, the high probability of a clinically significant, sudden or life threatening deterioration of the following system(s) required my full and direct attention, intervention and personal management. The time I documented below is in addition to time spent performing reported procedures but includes the following listed in this critical care notation. Medical Decision Making - Medical Records Medical records reviewed: Yes: I reviewed the patient's medical records. - Scott Inquiry Pt receiving controlled substance: No Vital Signs: 03/26/21 11:06 Temperature 97.6 F Temperature Source Oral Pulse Rate [Left Radial] 70 Respiratory Rate 16 Blood Pressure [Right Arm] 100/62 L Blood Pressure Mean [Right Arm] 74 Blood Pressure Source [Right Arm] Manual Cuff/ Auscultation 02 Sat by Pulse Oximetry 98 Oxygen Delivery Method Room Air - Lab Data Lab results reviewed: Yes: I reviewed the patient's lab results. Lab Results 03/26/21 10:57: WBC 7.5, RBC 5.15, Hgb 15.6, Hct 44.4, MCV 86.2, MCH 30.3, MCHC 35.1, RDW 14.1, Plt Count 341, MPV 8.5, Neut % (Auto) 61.6, Lymph % (Auto) 28.1, [place] % (Auto) 7.0, Eos % (Auto) 1.9, Baso % (Auto) 1.4, Neut # (Auto) 4.6, Lymph # (Auto) 2.1, [place] # (Auto) 0.5, Eos # (Auto) 0.1, Baso # (Auto) 0.1 03/26/21 10:57: Sodium 140, Potassium 4.4, Chloride 106, Carbon Dioxide 20 L, Anion Gap 18.4 H, BUN 12, Creatinine 1.00, Estimated Creat Clear 101, Estimated GFR 83, Est GFR ( Amer) 100, Glucose 108 H, Calcium 10.2, Total Bilirubin 0.4, AST 40, ALT 53, Alkaline Phosphatase 100, Troponin I 0.02, Total Protein 7.4, Albumin 4.7, Globulin 2.7, Albumin/Globulin Ratio 1.7 03/26/21 10:57: NT-Pro-B Natriuret Pep 177 H Result diagrams: 03/26/21 10:57 03/26/21 10:57 Orders (Tests/Meds): ORDERS Category Date Time Status Rapid PCR Covid and Flu A/B Stat Lab 03/26/21 11:30 Received Troponin I Q3H Lab 03/26/21 14:00 Ordered Troponin I Q3H Lab 03/26/21 17:00 Ordered - Radiology Data #1 Image(s): Chest Image Reviewed: Yes I reviewed the patient's radiology results Preliminary Findings: Normal/NAD - ECG Data Tracing #1 I reviewed this ECG and interpreted as documented below: Normal sinus rhythm, 60 bpm, no ST elevation or depression, no ectopy, normal intervals. ECG initial impression date: 03/26/21 ECG initial impression time: 10:38 Medical Decision Narrative: 40yo M evaluated for syncopal event while in cardiac rehab. Patient arrives he is in no acute distress, though noted to be mildly hypotensive. He is alert and oriented x4. Routine cardiac work-up initiated. EKG as above. Troponin 0 0.02. Remainder of the patient's laboratory work-up is benign. Chest x-ray benign. Case discussed with Dr. Jurado who evaluated the patient in the emergency department and states he is appropriate and stable for discharge home and just had exercise-induced vasovagal episode. They plan to see him in follow-up in the clinic in the next few days. General Adult HPI - General Chief complaint: Syncope Stated complaint: syncope Time Seen by Provider: 03/26/21 10:54 Mode of Arrival: Wheelchair Limitations: No Limitations Description of Symptoms (Recalled from ER Triage Doc. by RN): pt to ed via wheelchair from cardiac rehab. rapid response called per rehab staff. pt states he was on the eliptical for approx 10 mins when he became diaphoretic, felt warm all over and had a witnessed near syncopal episode. pt was brought to ed per rehab staff. pt states he had a recent [place]
[2021-03-26 12:53] VITALS: BP 98/62; PULSE 66; RESP 16; TEMP 36.8; O2SAT 96
--- NOTE | 2021-03-26 13:14 | HMH.CNCARD ---
History of Present Illness Consult date: 03/26/21 Requesting physician: Stefano Castro Consult reason: known to you Chief complaint: syncope History of present illness: This is a 40-year-old gentleman who presented to the emergency department from cardiac rehab for a syncopal episode. The patient states that he had worked out on the elliptical machine at cardiac rehab for approximately 10 minutes. The patient states that after he got off the elliptical machine he was feeling very flushed and sweaty and states that he got really hot. He had blurred vision and then passed out. The syncopal episode was witnessed by the cardiac rehab workers. The patient does not know how long he was unconscious but he reported that they told him he came to pretty quickly and he has been fine since that time. He denies any chest pain or pressure. He denies any shortness of breath or edema. He denies any fever, chills, nausea, vomiting, diarrhea, PND or orthopnea. He was mildly hypotensive when he presented to the emergency department. His troponin is negative. [facility] History I have reviewed the patient's past medical history: Yes Medical History: Reports:: Coronary Artery Disease Denies:: Cancer, Diabetes Mellitus Type 1, Diabetes Mellitus Type 2, MRSA *Have you ever received a pneumonia vaccine?: No *Have you received a flu vaccine this season?: No Other Surgeries: Yes: Cardiac Catheterization, Coronary Stent Amputation: No Fractures: No - *Social History Smoking Status: Never smoker Alcohol Intake: never Substance Use Type: marijuana *Occupational Status:: employed Housing: apartment Household Members: significant other *Travel in the last 8 weeks: None Family Hx:: Heart Attack, Hyperlipidemia, Hypertension Meds Home Medications Medication Instructions Recorded Confirmed Type Aspirin [Low Dose Aspirin EC] 81 mg PO DAILY 02/22/21 03/13/21 History Atorvastatin Calcium [Lipitor 40mg 40 mg PO HS 02/22/21 03/13/21 History Tab] Sacubitril/Valsartan [Entresto] 1 tab PO BID 02/22/21 03/13/21 History carvedilol 12.5 mg tablet 6.25 mg PO BID tab 03/13/21 03/13/21 History Allergies Allergy/AdvReac Type Severity Reaction Status Date / Time codeine AdvReac Verified 03/13/21 14:07 morphine AdvReac Verified 03/13/21 14:07 Exam Vital signs and Labs for Last 24 Hours: Temp Pulse Resp BP Pulse Ox 98.3 F 66 16 98/62 L 97 03/26/21 12:53 03/26/21 12:53 03/26/21 12:53 03/26/21 12:53 03/26/21 12:00 Laboratory Results - last 24 hr 03/26/21 10:57: WBC 7.5, RBC 5.15, Hgb 15.6, Hct 44.4, MCV 86.2, MCH 30.3, MCHC 35.1, RDW 14.1, Plt Count 341, MPV 8.5, Neut % (Auto) 61.6, Lymph % (Auto) 28.1, [place] % (Auto) 7.0, Eos % (Auto) 1.9, Baso % (Auto) 1.4, Neut # (Auto) 4.6, Lymph # (Auto) 2.1, [place] # (Auto) 0.5, Eos # (Auto) 0.1, Baso # (Auto) 0.1 03/26/21 10:57: Sodium 140, Potassium 4.4, Chloride 106, Carbon Dioxide 20 L, Anion Gap 18.4 H, BUN 12, Creatinine 1.00, Estimated Creat Clear 101, Estimated GFR 83, Est GFR ( Amer) 100, Glucose 108 H, Calcium 10.2, Total Bilirubin 0.4, AST 40, ALT 53, Alkaline Phosphatase 100, Troponin I 0.02, Total Protein 7.4, Albumin 4.7, Globulin 2.7, Albumin/Globulin Ratio 1.7 03/26/21 10:57: NT-Pro-B Natriuret Pep 177 H 03/26/21 11:30: SARS-CoV-2 (PCR) Not detected, Influenza A Untype (PCR) Not detected, Influenza Type B (PCR) Not detected I & O for Last 24 hours: Intake & Output 03/23/21 03/24/21 03/25/21 03/26/21 23:59 23:59 23:59 23:59 Weight 160 lb Narrative: EKG shows sinus rhythm with a rate of 63 and old septal SD pattern. - Constitutional no acute distress, average body habitus - *Routine HEENT Exam Head: Present: normocephalic, atraumatic Eye: Present: EOMI, PERRL ENT: Present: mucous membranes moist - *Routine Neck Exam Present: supple, full ROM, normal carotid upstroke. Absent: JVD, carotid bruit, lymphadenopathy - *Routine Respiratory Exam Present: CTA bilater
== END 2021-03-26 12:56 | disposition home or self-care (01) ==
PROVIDERS: Emergency Provider Family Medicine
DX: R55 Syncope and collapse (principal); E78.5 Hyperlipidemia, unspecified; Z88.5 Allergy status to narcotic agent
CPT/HCPCS: 71045; 80053; 83880; 84484; 85025; 93005; 96365; 99283; C9803; U0003; U0005

== ENCOUNTER 2021-03-28 20:32 | Emergency (ER) | payer MEDICAID, SELFPAY ==
[2021-03-28] VITALS (7 sets, daily range): BP systolic 113–137; BP diastolic 76–89; PULSE 65–87; RESP 13–21; TEMP 37.1; O2SAT 94–98; BMI 25.8
--- NOTE | 2021-03-28 20:20 | ECG_ITS ---
APPROVED REPORT Exam: Resting ECG HR:76 bpm ECG Measurements Heart Rate 76 AXES IL 150 P 54 QRSd 74 QRS 56 QT 372 T 74 QTc 418 Conclusion Normal sinus rhythm Low voltage QRS Late r wave progression - unchanged from prior Abnormal ECG Electronically signed by : Alex Scott MD 03/29/2021 20:24:50
--- NOTE | 2021-03-28 20:48 | XR_ITS ---
PROCEDURE INFORMATION: Exam: XR Chest Exam date and time: 03/28/2021 8:48 PM Age: 40 years old Clinical indication: Sternal or substernal pain; Prior surgery; Surgery type: Cardiac stents; Additional info: Chest pain TECHNIQUE: Imaging protocol: XR of the chest. Views: 2 views. COMPARISON: CR XR CHEST PORTABLE 03/26/2021 11:35 AM FINDINGS: Lungs: Unremarkable. No consolidation. Pleural spaces: Unremarkable. No pleural effusion. No pneumothorax. Heart/Mediastinum: Unremarkable. No cardiomegaly. Bones/joints: Unremarkable. IMPRESSION: No acute findings.
[2021-03-28 20:57] LABS: Basophils # 0.1 K/mm3 (0-0.2); Basophils % 1.4 % (0.1-2.0); Chloride 105 mmol/L (98-107); Eosinophils # 0.1 K/mm3 (0.0-0.4); Eosinophils % 1.8 % (0.1-12.0); Hematocrit 41.7 % (42.0-52.0); Hemoglobin 14.7 g/dL (14.1-18.0); Lymphocytes % 27.3 % (10-50); Mean Corpuscular HGB Conc 35.2 g/dL (31.8-35.4); Mean Corpuscular Hemoglobin 30.8 pg (27.0-31.2); Mean Corpuscular Volume 87.5 fl (80-94); Mean Platelet Volume 8.3 fl (7.4-10.4); Monocytes # 0.5 K/mm3 (0.1-1.0); Monocytes % 6.8 % (1.7-9.3); Neutrophils # 4.6 K/mm3 (1.8-7.8); Neutrophils % 62.7 % (37.0-80.0); Platelet Count 286 K/mm3 (142-424); Red Blood Count 4.76 M/mm3 (4.60-6.20); Red Cell Distribution Width 13.9 % (11.5-17.5); Sodium 141 mmol/L (136-145); White Blood Count 7.4 K/mm3 (4.8-10.8)
[2021-03-28 20:58] LABS: Potassium 3.8 mmoL/L (3.5-5.1)
[2021-03-28 21:00] LABS: Alanine Aminotransferase 39 U/L (12-78); Alkaline Phosphatase 96 U/L (38-126); Anion Gap 11.8 mEq/L (5-15); Aspartate Amino Transferase 40 U/L (17-59); Bilirubin,Indirect 0.3 mg/dL (0.0-0.9); Bilirubin,Total 0.3 mg/dl (0.2-1.3); Bilirubin,Unconjugated 0.2 mg/dL (0.0-1.1); Blood Urea Nitrogen 9 mg/dl (9-20); Calcium 9.4 mg/dl (8.4-10.2); Carbon Dioxide 28 mmol/L (22.0-30.0); Creatinine Clearance Estimated 126 mL/min (50-200); Estimated Glomerular Filt Rate 107 ml/min (>60); GFR (African American) 130 ML/MIN (>60); Glucose 126 mg/dl (74-100); Lipase 1702 U/L (23-300)
[2021-03-28 21:01] LABS: Albumin Level 4.5 g/dl (3.5-5.0); Total Protein,Serum 7.1 g/dl (6.3-8.2)
--- NOTE | 2021-03-28 21:08 | HMH.EDCP ---
ED Disposition Clinical Impression: Atypical chest pain, Elevated lipase, Renal lesion Disposition: Home, Self-Care Condition on Discharge: Good Instructions: DI for Atypical Chest Pain Additional Instructions: see pcp and card for follow up Referrals: Provider,Referral, [Primary Care Provider] - - Critical Care Critical Care Time: No Attestation: On 03/28/21, the high probability of a clinically significant, sudden or life threatening deterioration of the following system(s) required my full and direct attention, intervention and personal management. The time I documented below is in addition to time spent performing reported procedures but includes the following listed in this critical care notation. Medical Decision Making - Medical Records Medical records reviewed: Yes: I reviewed the patient's medical records. - Scott Inquiry Pt receiving controlled substance: No Vital Signs: 03/28/21 20:33 03/28/21 21:12 03/28/21 21:30 Temperature 98.7 F Temperature Source Oral Pulse Rate 65 68 Pulse Rate [Left] 87 Respiratory Rate 16 13 17 Blood Pressure 123/83 129/85 Blood Pressure [Right Arm] 129/89 Blood Pressure Mean [Right Arm] 102 02 Sat by Pulse Oximetry 98 96 95 Oxygen Delivery Method Room Air Room Air - Lab Data Lab results reviewed: Yes: I reviewed the patient's lab results. Lab Results 03/28/21 20:38: WBC 7.4, RBC 4.76, Hgb 14.7, Hct 41.7 L, MCV 87.5, MCH 30.8, MCHC 35.2, RDW 13.9, Plt Count 286, MPV 8.3, Neut % (Auto) 62.7, Lymph % (Auto) 27.3, [place] % (Auto) 6.8, Eos % (Auto) 1.8, Baso % (Auto) 1.4, Neut # (Auto) 4.6, Lymph # (Auto) 2.0, [place] # (Auto) 0.5, Eos # (Auto) 0.1, Baso # (Auto) 0.1 03/28/21 20:38: Sodium 141, Potassium 3.8, Chloride 105, Carbon Dioxide 28, Anion Gap 11.8, BUN 9, Creatinine 0.80, Estimated Creat Clear 126, Estimated GFR 107, Est GFR ( Amer) 130 D, Glucose 126 H, Calcium 9.4, Total Bilirubin 0.3, Direct Bilirubin 0.0, Conjugated Bilirubin 0.0, Indirect Bilirubin 0.3, Unconjugated Bilirubin 0.2, AST 40, ALT 39 D, Alkaline Phosphatase 96, Troponin I 0.02, Total Protein 7.1, Albumin 4.5, Lipase 1702 H 03/28/21 20:38: ESR 16 H 03/28/21 20:38: C-Reactive Protein 0.6, Procalcitonin 0.031 03/28/21 22:45: Troponin I 0.02 Result diagrams: 03/28/21 20:38 03/28/21 20:38 Orders (Tests/Meds): ED MEDICATIONS Generic Name Dose Route Start Last Admin Trade Name Freq PRN Reason Stop Dose Admin Sodium Chloride 1,000 mls @ 999 mls/hr 03/28/21 21:00 03/28/21 20:53 Sod Chlor 0.9% 1000ml Bag IV 03/28/21 22:00 999 mls/hr .Q1H1M WHITNEY Administration Discontinued Medications Generic Name Dose Route Start Last Admin Trade Name Freq PRN Reason Stop Dose Admin Aspirin 324 mg 03/28/21 20:48 03/28/21 20:53 Aspirin 81mg Chewable Tablet PO 03/28/21 20:49 324 mg ONCE ONE Administration Iopamidol 70 ml 03/28/21 21:54 03/28/21 21:55 Iopamidol-370 (76%);100ml Bottle IV 03/28/21 21:55 70 ml ONCE ONE Administration Ondansetron HCl 4 mg 03/28/21 20:49 03/28/21 20:53 Ondansetron 4mg/2ml Vial IV 03/28/21 20:50 4 mg ONCE ONE Administration Sodium Chloride 10 ml 03/28/21 21:54 03/28/21 21:55 Sodium Chloride 0.9% 10ml Syr (Rad Only) IV 03/28/21 21:55 10 ml ONCE ONE Administration ORDERS Category Date Time Status Troponin I Q3H Lab 03/29/21 02:48 Ordered - Radiology Data #1 Image(s): Chest Image Reviewed: Yes I have reviewed radiologist's interpretation Preliminary Findings: Normal/NAD - CT Data CT Scan: Abdomen, Pelvis Time Received: 00:[address] Reviewed: Yes: I have viewed the radiologist's interpretation Preliminary Findings: Abnormal (see report ) - ECG Data Tracing #1 Normal Sinus Rhythm: Yes Ischemic changes: non-specific ST-T wave changes Medical Decision Narrative: has stable exam but has elevated lipase with no pancreas changes on ct - maybe due from meds but also has rt r
[2021-03-28 21:12] LABS: Troponin I 0.02 ng/ml (0.00-0.034)
--- NOTE | 2021-03-28 21:38 | CT_ITS ---
PROCEDURE INFORMATION: Exam: CT Abdomen And Pelvis With Contrast Exam date and time: 03/28/2021 9:38 PM Age: 40 years old Clinical indication: Abnormal findings; Abnormal lab test; Elevated lipase; Additional info: Elevated lipase TECHNIQUE: Imaging protocol: Computed tomography of the abdomen and pelvis with contrast. Radiation optimization: All CT scans at this facility use at least one of these dose optimization techniques: automated exposure control; mA and/or kV adjustment per patient size (includes targeted exams where dose is matched to clinical indication); or iterative reconstruction. Contrast material: ISOVUE; Contrast volume: 75 ml; Contrast route: IV; COMPARISON: CR XR CHEST 2V 03/28/2021 8:51 PM FINDINGS: Lungs: A tiny pulmonary nodule seen in the right posterior lower lobe. See image 9. For patients at low risk (minimal or absent history of smoking and of other known risk factors), no routine follow-up is indicated. For patients at high risk (history of smoking or of other known risk factors), consider optional CT Chest at 12 months. (Reference: Kaylin) Heart: Coronary artery calcifications are suspected. Liver: Normal. No mass. Gallbladder and bile ducts: Normal. No calcified stones. No ductal dilation. Pancreas: Pancreas has a normal appearance. No significant surrounding stranding is seen. Spleen: Normal. No splenomegaly. Adrenal glands: Normal. No mass. Kidneys and ureters: There is a lesion in the right kidney on image 51 series 3 that measures about 11 mm. Differential includes an enhancing neoplasm and hyperdense cyst. Stomach and bowel: The stomach is [id number] distended with fluid and food. Appendix: No evidence of appendicitis. Intraperitoneal space: Unremarkable. No free air. No significant fluid collection. Vasculature: Peripheral atherosclerosis noted. It is mild, but slightly advanced for age. Lymph nodes: Unremarkable. No enlarged lymph nodes. Urinary bladder: Bladder is mildly thick-walled. This is probably due to under distention, but please correlate clinically for cystitis. Reproductive: Unremarkable as visualized. Bones/joints: Unremarkable. No acute fracture. Soft tissues: Unremarkable. IMPRESSION: 1. Unremarkable CT appearance of the pancreas 2. An 11 mm hyperdense lesion in the right kidney lower pole could potentially represent malignancy. Recommend correlation with renal mass protocol MR or CT. COMMENTS: Consistent with the [employer]'s Incidental Findings Committee white paper (J Am Marialuisa Radiol 2018): Any incidental renal lesion less than 1 cm or classified as too small to characterize, or any incidental cystic renal lesion characterized as simple-appearing, is likely benign. No follow-up imaging is recommended for these lesions per consensus recommendations based on imaging criteria. REFERENCES: Kaylin Bhatia, et al. Guidelines for Management of Incidental Pulmonary Nodules Detected on CT Images: From the Fleischner Society 2017. Radiology. 2017;284(1):228-243.
[2021-03-28 22:01] LABS: C-Reactive Protein 0.6 mg/L (0-4)
[2021-03-28 22:14] LABS: Procalcitonin 0.031 ng/mL (0.0-2.0)
[2021-03-28 22:15] LABS: Erythrocyte Sedimentation Rate 16 mm/hr (0-15)
[2021-03-28 23:22] LABS: Troponin I 0.02 ng/ml (0.00-0.034)
[2021-03-29 00:01] VITALS: BP 141/93; PULSE 67; RESP 12; O2SAT 95
[2021-03-29 00:27] VITALS: BP 126/84; PULSE 63; RESP 16; TEMP 37.1; O2SAT 94
== END 2021-03-29 00:36 | disposition home or self-care (01) ==
PROVIDERS: Emergency Provider Emergency Medicine
DX: R07.89 Other chest pain (principal); N28.9 Disorder of kidney and ureter, unspecified; R74.8 Abnormal levels of other serum enzymes
CPT/HCPCS: 71046; 74177; 80048; 80076; 83690; 84145; 84484; 85025; 85651; 86140; 93005; 96374; 99283; J2405; Q9967

== ENCOUNTER → 2021-03-29 10:49 | Outpatient (CLI) | payer MEDICAID, SELFPAY ==
[2021-03-29 12:23] LABS: Blood Urea Nitrogen 8 mg/dl (9-20); Estimated Glomerular Filt Rate 93 ml/min (>60); GFR (African American) 113 ML/MIN (>60)
== END ==
PROVIDERS: Visit Provider Physician Assistant
DX: Z01.812 Encounter for preprocedural laboratory examination (principal)
CPT/HCPCS: 36415; 82565; 84520

== ENCOUNTER → 2021-04-03 09:01 | Outpatient (CLI) | payer MEDICAID, SELFPAY ==
--- NOTE | 2021-04-03 09:01 | MR_ITS ---
PROCEDURE INFORMATION: Exam: MR Abdomen Without and With Contrast Exam date and time: 04/03/2021 9:01 AM Age: 40 years old Clinical indication: Abdominal pain; Generalized; Patient HX: Abnormal blood pressure and CT scan 03-28-21. Nausea. 15ml prohance given. Lot: [id number] exp: Jul 2023 bun: 8 cre: 0.9 gfr: 93; Additional info: Renal mass protocol TECHNIQUE: Imaging protocol: MR of the abdomen without and with intravenous contrast. Contrast material: PROHANCE; Contrast volume: 15 ml; Contrast route: IV; COMPARISON: CT ABDOMEN PELVIS W CON 03/28/2021 9:53 PM FINDINGS: Liver: No mass. Gallbladder and bile ducts: Unremarkable. No stones. No ductal dilation. Pancreas: No mass. No ductal dilation. Spleen: No splenomegaly. Adrenal glands: No mass. Kidneys and ureters: A 0.9 x 0.6 cm lesion of the anterolateral cortex of the lower zone of the right kidney does demonstrate probable enhancement. However, it is at the lower limits of resolution for assessment and may represent an angiomyolipoma without macroscopic fat, a complex cyst with septal enhancement or more aggressive renal mass cannot be excluded. Stomach and bowel: Visualized stomach and intestines are unremarkable. Intraperitoneal space: No free fluid. Arteries: No abdominal aortic aneurysm. Bones/joints: Unremarkable. Soft tissues: Unremarkable. IMPRESSION: There does appear to be enhancement of a 9 mm mass or complex cyst in the lower pole the right kidney. However, this lesion of the the lower low limits of size for characterization and could be secondary to a benign or malignant mass and urologic consultation is recommended. COMMENTS: Consistent with the [employer] [place] [employer]'s Incidental Findings Committee white paper (J Am Marialuisa Radiol 2018): Any incidental renal lesion less than 1 cm or classified as too small to characterize, or any incidental cystic renal lesion characterized as simple-appearing, is likely benign. No follow-up imaging is recommended for these lesions per consensus recommendations based on imaging criteria.
== END ==
PROVIDERS: PCP Emergency Medicine; Visit Provider Physician Assistant
DX: R07.9 Chest pain, unspecified (principal); R55 Syncope and collapse; I25.10 Atherosclerotic heart disease of native coronary artery without angina pectoris; I21.3 ST elevation (STEMI) myocardial infarction of unspecified site; I42.9 Cardiomyopathy, unspecified; I50.20 Unspecified systolic (congestive) heart failure; I51.7 Cardiomegaly; E78.5 Hyperlipidemia, unspecified; R11.0 Nausea; R93.5 Abnormal findings on diagnostic imaging of other abdominal regions, including retroperitoneum
CPT/HCPCS: 74183; A9576

== ENCOUNTER → 2021-04-16 14:02 | Outpatient (CLI) | payer MEDICAID, SELFPAY ==
--- NOTE | 2021-04-16 14:06 | CA_ITS ---
APPROVED REPORT Bilateral Lower Extremity Venous Study for DVT. Radiology Technologist: Leatha Baez, RVT Indications History of Smoking BRUISING NAVJOT LE'S Risk Factors CAD Medications Aspirin PT ON [place] Vein Imaging CFV (R): compressive, spontaneous, phasic, augmentation FEM (R): compressive, spontaneous, phasic, augmentation POP (R): compressive, spontaneous, phasic, augmentation PTV (R): Compressible GSV (R): Compressible Peroneals (R):Compressible GAS (R): Compressible CFV (L): compressive, spontaneous, phasic, augmentation FEM (L): compressive, spontaneous, phasic, augmentation POP (L): compressive, spontaneous, phasic, augmentation PTV (L): Compressible GSV (L): Compressible Peroneals (L):Compressible GAS (L): Compressible Findings Study suggests no evidence of DVT or SVT of the bilateral lower extremities. Conclusion Study suggests no evidence of DVT or SVT of the bilateral lower extremities. Critical Notification Date: 04/16/2021 Time: 14:37 Physician Name: Jazz Donahue's office Electronically signed by : Josep Bhatti MD 04/16/2021 16:11:36
[2021-04-16 16:04] LABS: Chloride 99 mmol/L (98-107); Sodium 138 mmol/L (136-145)
[2021-04-16 16:05] LABS: Potassium 4.6 mmoL/L (3.5-5.1)
[2021-04-16 16:07] LABS: Blood Urea Nitrogen 13 mg/dl (9-20); Estimated Glomerular Filt Rate 93 ml/min (>60); GFR (African American) 113 ML/MIN (>60)
[2021-04-16 16:08] LABS: Anion Gap 14.6 mEq/L (5-15); Calcium 9.7 mg/dl (8.4-10.2); Carbon Dioxide 29 mmol/L (22.0-30.0); Glucose 96 mg/dl (74-100)
[2021-04-16 17:37] LABS: Basophils # 0.1 K/mm3 (0-0.2); Basophils % 1.1 % (0.1-2.0); Eosinophils # 0.1 K/mm3 (0.0-0.4); Eosinophils % 1.1 % (0.1-12.0); Hematocrit 46.6 % (42.0-52.0); Hemoglobin 16.5 g/dL (14.1-18.0); Lymphocytes # 1.7 K/mm3 (0.7-4.5); Lymphocytes % 21.1 % (10-50); Mean Corpuscular HGB Conc 35.5 g/dL (31.8-35.4); Mean Corpuscular Hemoglobin 31.6 pg (27.0-31.2); Mean Corpuscular Volume 89.1 fl (80-94); Mean Platelet Volume 8.6 fl (7.4-10.4); Monocytes # 0.5 K/mm3 (0.1-1.0); Monocytes % 6.8 % (1.7-9.3); Neutrophils # 5.5 K/mm3 (1.8-7.8); Neutrophils % 69.8 % (37.0-80.0); Platelet Count 278 K/mm3 (142-424); Red Blood Count 5.23 M/mm3 (4.60-6.20); Red Cell Distribution Width 13.4 % (11.5-17.5); White Blood Count 7.9 K/mm3 (4.8-10.8)
[2021-04-18 14:41] LABS: Peripheral Smear Review Scanned Result
== END ==
PROVIDERS: PCP Emergency Medicine; Visit Provider Nurse Practitioner Family
DX: R23.8 Other skin changes (principal)
CPT/HCPCS: 36415; 80048; 85025; 93970

== ENCOUNTER → 2021-05-16 13:51 | Outpatient (CLI) | payer MEDICAID, SELFPAY ==
[2021-05-16 14:46] LABS: Basophils # 0.1 K/mm3 (0-0.2); Basophils % 1.6 % (0.1-2.0); Eosinophils # 0.1 K/mm3 (0.0-0.4); Eosinophils % 0.9 % (0.1-12.0); Hematocrit 50.4 % (42.0-52.0); Lymphocytes # 1.7 K/mm3 (0.7-4.5); Lymphocytes % 22.3 % (10-50); Mean Corpuscular HGB Conc 33.7 g/dL (31.8-35.4); Mean Corpuscular Hemoglobin 31.3 pg (27.0-31.2); Mean Corpuscular Volume 92.9 fl (80-94); Mean Platelet Volume 8.8 fl (7.4-10.4); Monocytes # 0.5 K/mm3 (0.1-1.0); Monocytes % 6.3 % (1.7-9.3); Neutrophils # 5.4 K/mm3 (1.8-7.8); Neutrophils % 68.8 % (37.0-80.0); Platelet Count 323 K/mm3 (142-424); Red Blood Count 5.42 M/mm3 (4.60-6.20); White Blood Count 7.8 K/mm3 (4.8-10.8)
[2021-05-16 15:07] LABS: Anion Gap 11.1 mEq/L (5-15); Blood Urea Nitrogen 16 mg/dl (9-20); Calcium 10.4 mg/dl (8.4-10.2); Carbon Dioxide 30 mmol/L (22.0-30.0); Chloride 100 mmol/L (98-107); Estimated Glomerular Filt Rate 83 ml/min (>60); GFR (African American) 100 ML/MIN (>60); Glucose 102 mg/dl (74-100); Potassium 5.1 mmoL/L (3.5-5.1); Sodium 136 mmol/L (136-145)
== END ==
PROVIDERS: PCP Emergency Medicine; Visit Provider Urology
DX: Z01.812 Encounter for preprocedural laboratory examination (principal); Z11.52 Encounter for screening for COVID-19; I42.9 Cardiomyopathy, unspecified; I20.9 Angina pectoris, unspecified; I50.20 Unspecified systolic (congestive) heart failure; E78.5 Hyperlipidemia, unspecified; K21.9 Gastro-esophageal reflux disease without esophagitis; Z72.0 Tobacco use
CPT/HCPCS: 36415; 80048; 85025; C9803; U0003; U0005

== ENCOUNTER → 2021-05-17 08:39 | Day surgery (SDC) | payer MEDICAID, SELFPAY ==
[2021-05-17] VITALS (11 sets, daily range): BP systolic 91–127; BP diastolic 57–86; PULSE 65–80; RESP 14–19; TEMP 36.6–36.9; O2SAT 93–99; BMI 25.8
--- NOTE | 2021-05-17 | IR_ITS ---
APPROVED REPORT Patient Location: Outpatient Circuit Rider: BERNARD Mayo RT (R) PROCEDURES Left heart catheterization Left ventriculogram Selective coronary angiogram FFR to the LAD INDICATION History of anterior ST elevation myocardial infarction, Known coronary artery disease, Angiographically indeterminate coronary disease, Typical angina pectoris Informed consent was obtained prior to the procedure. COMPLICATIONS None Estimated Blood Loss: less than 10 ml TECHNIQUE One percent lidocaine used to anesthetize the right anterior aspect of the wrist. The right radial artery was accessed via the Seldinger technique. A 6 [place] sheath was placed in the right radial artery. 2.5 mg of verapamil, 800 mcg of nitroglycerin, 1mg Lidocaine and 5000 U Heparin were given through the arterial sheath. The Pappa and JR3 guide catheter was also used to perform left heart catheterization, left ventriculogram and selective coronary angiogram. At the end of the diagnostic angiogram therapeutic heparin was administered giving a therapeutic ACT and a JL 3 guide catheter was placed in the left main artery followed by a Choice PT extra-support wire into the distal LAD. Nevus FFR catheter was advanced and per protocol adenosine was infused. The FFR index dropped to 0.86. Given this to not meet hemodynamic significance apparatus was removed the sheath was removed good hemostasis was achieved using TR banding patient was transferred to the postop putting in stable condition ANGIOGRAPHIC RESULTS The left main artery Normal The left anterior descending artery Has an ostial 20% stenosis followed by a stent which is widely patent free of in-stent restenosis with excellent distal transitioning. The mid LAD then has a hazy 30 to 40% concentric stenosis. The circumflex artery Is a dominant vessel and has mild mid vessel vascular ectasia with no stenosis greater than 10% The right coronary artery Nondominant yet still large with mild proximal 10% luminal regularities The [place] ventriculogram reveals Slightly reduced with anterior wall hypokinesis estimated at 45% The left ventricular end-diastolic pressure 15 mmHg IMPRESSION Coronary disease as described above Ejection fraction 45% with mildly elevated LVEDP Angina symptoms almost certainly stem from endothelial dysfunction from ongoing tobacco usage PLAN 1. Immediate tobacco cessation 2. Aggressive risk factor modification 3. Maximize antianginal 4. Cardiac rehabilitation 5. LDL is 55 Electronically signed by : Kashif Jurado MD 05/17/2021 11:37:13
== END ==
PROVIDERS: PCP Emergency Medicine; Visit Provider Internal Medicine
DX: I25.118 Atherosclerotic heart disease of native coronary artery with other forms of angina pectoris (principal); I50.22 Chronic systolic (congestive) heart failure; Z95.5 Presence of coronary angioplasty implant and graft; I25.2 Old myocardial infarction; I25.5 Ischemic cardiomyopathy; Z79.899 Other long term (current) drug therapy; Z79.02 Long term (current) use of antithrombotics/antiplatelets; F17.210 Nicotine dependence, cigarettes, uncomplicated
CPT/HCPCS: 93458; 93571; 99152; 99153; C1725; C1769; J0153; J1644; Q9967

== ENCOUNTER → 2021-07-18 10:00 | Outpatient (CLI) | payer MEDICAID, SELFPAY ==
--- NOTE | 2021-07-18 10:01 | CA_ITS ---
APPROVED REPORT EXAM: Comprehensive 2D, Doppler, and color-flow Echocardiogram [employer]: Radha Land RDCS Ht: 5 ft 6 in Wt: 163lbs BSA: 1.83 BP: 113/81 mmHg Indications: CMP,CAD,CHF 2D Dimensions LVOT 2.07 cm (M/F) 1.5-2.5 M-Mode Dimensions RVDd 1.72 cm (0.9-2.6) LA Diam 3.09 cm (1.9-4.0) LVDd 5.15 cm (3.5-5.7) Ao Diam 2.99 cm (2.0-3.7) LVDs 4.07 cm (3.5-5.7) IVSd 0.61 cm (0.6-1.1) PWd 0.94 cm (0.6-1.1) EF (Teich) 42.40% FS 21.00% EDV (Teich) 126.60 mL TAPSE 2.04 (<1.7) ESV (Teich) 72.90 mL LV Diastology E Decel Time 250.00 (160-240 msec) E/A Ratio 0.7 MED E' 8.60 (< 7 cm/sec) E'/MED E' Ratio 5.31 (>14) Mitral Valve MV E Max Andrea. 46.00 (40-130 cm/s) MV A Velocity 66.00 (40-130 cm/s) E/A Ratio 0.69 MV Decel. Time 250.00 (160-240 ms) MV PHT 73.00 ms Tricuspid Valve TR P. Velocity 196.00 cm/s RAP Estimate 10.00 mmHg RVSP 25.40 mmHg Left Ventricle Left atrium normal size, left ventricle is normal size, visually estimated ejection fraction 55% with no regional wall motion abnormality, grade 1 diastolic dysfunction seen without tissue Doppler evidence of raise left atrial pressure. Right Ventricle Right atrium and right ventricle are normal size and contractility. Aortic Valve Aortic valve is grossly normal, there is no aortic stenosis or aortic insufficiency. Mitral Valve Mitral valve grossly normal, there is trace mitral regurgitation. Tricuspid Valve Tricuspid valve grossly normal, there is trace tricuspid regurgitation, tricuspid regurgitation jet velocity is inadequate for calculation of the right ventricular systolic pressure. Pulmonic Valve Pulmonic valve is poorly visualized. Great Vessels Aortic root is normal size. Inferior vena cava is poorly visualized. Pericardium No significant pericardial effusion. Conclusion 1. Normal left ventricular size, preserved left ventricular systolic function, visually estimated ejection fraction 55% with no regional wall motion abnormality, grade 1 diastolic dysfunction seen without tissue Doppler evidence of late left atrial pressure. 2. Trace mitral and tricuspid regurgitation. 3. No significant pericardial effusion noted. 4. Inferior vena cava is poorly visualized. Electronically signed by : Isai Brown MD 07/18/2021 20:49:33
== END ==
PROVIDERS: PCP Emergency Medicine; Visit Provider Physician Assistant
DX: I50.22 Chronic systolic (congestive) heart failure (principal); I20.9 Angina pectoris, unspecified; I21.3 ST elevation (STEMI) myocardial infarction of unspecified site; I25.5 Ischemic cardiomyopathy; I51.7 Cardiomegaly; E78.2 Mixed hyperlipidemia; R93.5 Abnormal findings on diagnostic imaging of other abdominal regions, including retroperitoneum; Z72.0 Tobacco use
CPT/HCPCS: 93306

== ENCOUNTER → 2021-08-07 13:24 | Outpatient (CLI) | payer MEDICAID, SELFPAY | PROVIDERS: PCP Emergency Medicine; Visit Provider Physician Assistant | DX: Z71.3 Dietary counseling and surveillance (principal); I25.10 Atherosclerotic heart disease of native coronary artery without angina pectoris | CPT/HCPCS: 97802 ==

== ENCOUNTER → 2021-11-05 08:22 | Outpatient (CLI) | payer MEDICAID, SELFPAY ==
--- NOTE | 2021-11-05 08:22 | CT_ITS ---
FINAL REPORT TECHNIQUE: Pre and postcontrast axial imaging of the abdomen and pelvis was obtained. Formatted images were obtained and reviewed. This study was performed with techniques to keep radiation doses as low as reasonably achievable (ALARA). Individualized dose reduction techniques using automated exposure control or adjustment of mA and/or kV according to the patient's size were employed. CLINICAL HISTORY: Renal mass follow-up COMPARISON: 03/29/2021 FINDINGS: The lung bases are clear. The liver is normal in size and attenuation. The spleen is unremarkable. The adrenals are normal. The pancreas is unremarkable. Again seen in the anterior right kidney is a 1.1 x 1.0 cm focus. On precontrast imaging this demonstrates a mean attenuation value of 42 Hounsfield units. On post-contrast imaging this demonstrates a mean attenuation value of 118 Hounsfield units. This is not conclusively benign. Although, enhancement may be due to some volume averaging, true enhancement is not excluded. There are tiny, benign left renal cysts. There is scattered diverticulosis without evidence of diverticulitis. The appendix is normal. Urinary bladder is unremarkable. There is no adenopathy or free fluid. IMPRESSION: Indeterminate right renal mass which could be related to renal cell carcinoma. Recommend urologic consultation. Reviewed, Interpreted and Dictated by Zachary Sanchez MD Transcribed by Katerina Bobby Authenticated and [facility]
== END ==
PROVIDERS: PCP Emergency Medicine; Visit Provider Urology
DX: N28.89 Other specified disorders of kidney and ureter (principal)
CPT/HCPCS: 74178; Q9967

== ENCOUNTER 2022-08-07 11:24 | Emergency (ER) | payer MEDICAID, SELFPAY ==
[2022-08-07] VITALS (11 sets, daily range): BP systolic 91–120; BP diastolic 59–85; PULSE 60–78; RESP 12–20; TEMP 36.5; O2SAT 94–100; BMI 27.4
--- NOTE | 2022-08-07 11:22 | ECG_ITS ---
APPROVED REPORT Exam: Resting ECG HR:75 bpm ECG Measurements Heart Rate 75 AXES DE 148 P 57 QRSd 88 QRS 15 QT 371 T 68 QTc 400 Conclusion SINUS RHYTHM WITH MARKED SINUS ARRHYTHMIA MINIMAL ST DEPRESSION [0.025+ mV ST DEPRESSION] BORDERLINE ECG UNCONFIRMED REPORT Electronically signed by : Alex Scott MD 08/09/2022 09:35:38
--- NOTE | 2022-08-07 11:50 | XR_ITS ---
FINAL REPORT CLINICAL HISTORY: chest pain hx of heart stents smoker COMPARISON: 03/29/2021 FINDINGS: A single portable view of the chest was obtained. The heart size and pulmonary vascularity are within normal limits. The mediastinum is within normal limits. No acute pulmonary abnormality is identified. The bony thorax is intact. IMPRESSION: No active cardiopulmonary disease. Reviewed, Interpreted and Dictated by John Pope III, MD Transcribed by Rissa Brewster Authenticated and . [facility]
--- NOTE | 2022-08-07 11:52 | HMH.EDGENADL ---
Discharge Plan Disposition Patient Disposition: Home, Self-Care Chief Complaint: Chest Pain Prescriptions Prescriptions: No Action aspirin 81 mg tablet,delayed release (DR/EC) See Rx Instructions .ROUTE .COMPLEX Qty: 30 5RF Dose Instruction: TAKE ONE TABLET BY MOUTH EVERY DAY Rx Instructions: TAKE ONE TABLET BY MOUTH EVERY DAY Entresto 97-103 mg tablet 1 tab PO BID Qty: 60 3RF carvedilol [Coreg] 6.25 mg tablet 6.25 mg PO BID Qty: 60 5RF Rx Instructions: must administer with a meal/food atorvastatin 40 mg tablet 40 mg PO HS Qty: 90 3RF Hold Instructions: Home Medication placed on hold at Doctor's office pantoprazole 40 MG tablet,delayed release (DR/EC) 40 mg PO DAILY Referrals Follow up/Referrals: Provider,Referral, MD [Primary Care Provider] - See instructions Activity Restrictions/Add. Instructions Additional Instructions/Restrictions: At this time was felt you are safe to be discharged home. If new or worsening symptoms please do not hesitate to return for continued evaluation. Please follow-up with your housekeeping assistant within 1 week. Clinical Impressions Clinical Impression: Chest pain Discharge ED Provider: Cooper Reese General Adult HPI General Chief complaint: Chest Pain Stated complaint: CP Time Seen by Provider: 08/07/22 11:45 Mode of Arrival: Ambulatory Source of Information: Patient Limitations: No Limitations Description of Symptoms (Recalled from ER Triage Doc. by RN): pt to the ED with an episode of a sharp pain in his left rib area this morning with no trauma accompanied by a hot flash and brain fog while cooking brekfast this morning. pt denies any pain at this time. History of Present Illness HPI narrative: Patient is a 42-year-old with past medical history of ACS status post stenting who presents the emergency department for evaluation of chest pain. Onset was acute, intermittent, substernal, nonradiating while patient was preparing breakfast. Patient also had a sensation of his whole body feeling hot . Patient denies syncope. No other acute complaints at this time. Patient denies cough or shortness of breath. Related Data Home Medications Medication Instructions Recorded Confirmed pantoprazole 40 mg tablet,delayed 40 mg PO DAILY GERD 05/17/21 07/18/22 release Previous Rx's Medication Instructions Recorded aspirin 81 mg tablet,delayed See Rx Instructions .Route 01/22/22 release .COMPLEX #30 tabs atorvastatin 40 mg tablet 40 mg PO HS High cholesterol #90 03/04/22 tabs carvedilol 6.25 mg tablet (Coreg) 6.25 mg PO BID #60 tabs 04/04/22 sacubitril 97 mg-valsartan 103 mg 1 tab PO BID #60 tabs 07/18/22 tablet (Entresto) Allergies Allergy/AdvReac Type Severity Reaction Status Date / Time codeine AdvReac Verified 07/18/22 11:56 isosorbide AdvReac headache Verified 07/18/22 11:56 morphine AdvReac Verified 07/18/22 11:56 PFSH PFS Disclaimer: The information contained in this section may have been updated after the patient was seen, as this information can be updated by other users. Medical History CAD (coronary artery disease) Cardiomyopathy Chest pain Dyspnea Gastroesophageal reflux disease Systolic heart failure Social History Smoking Status: Never smoker alcohol intake: never substance use type: marijuana current occupational status: unemployed Travel in the last 8 weeks: None household members: none housing: house current occupation: [employer] current occupational exposures/hazards: No caffeine: Yes ROS Obtained: Yes Systems reviewed as appropriate & no additional complaints except as documented Physical Exam General General appearance: alert and in no apparent distress Head Head exam: atraumatic and normocephalic Eye Eye exam: Present PERRL and EOMI
[2022-08-07 12:06] LABS: Basophils # 0.1 K/mm3 (0-0.2); Basophils % 0.9 % (0.1-2.0); Eosinophils # 0.1 K/mm3 (0.0-0.4); Eosinophils % 1.4 % (0.1-12.0); Hematocrit 46.3 % (42.0-52.0); Hemoglobin 15.2 g/dL (14.1-18.0); Lymphocytes # 1.8 K/mm3 (0.7-4.5); Lymphocytes % 24.4 % (10-50); Mean Corpuscular Hemoglobin 29.9 pg (27.0-31.2); Mean Corpuscular Volume 90.6 fl (80-94); Mean Platelet Volume 8.6 fl (7.4-10.4); Monocytes # 0.5 K/mm3 (0.1-1.0); Monocytes % 6.3 % (1.7-9.3); Neutrophils # 4.9 K/mm3 (1.8-7.8); Platelet Count 293 K/mm3 (142-424); Red Blood Count 5.11 M/mm3 (4.60-6.20); White Blood Count 7.2 K/mm3 (4.8-10.8)
[2022-08-07 12:08] LABS: Chloride 103 mmol/L (98-107); Sodium 139 mmol/L (136-145)
[2022-08-07 12:10] LABS: Blood Urea Nitrogen 13 mg/dl (9-20); Creatinine Clearance Estimated 131 mL/min (50-200); Estimated Glomerular Filt Rate 106 ml/min (>60); GFR (African American) 128 ML/MIN (>60)
[2022-08-07 12:11] LABS: Alanine Aminotransferase 76 U/L (12-78); Albumin Level 4.5 g/dl (3.5-5.0); Albumin/Globulin Ratio 1.5 (1.1-1.8); Alkaline Phosphatase 129 U/L (38-126); Aspartate Amino Transferase 40 U/L (17-59); Bilirubin,Total 0.9 mg/dl (0.2-1.3); Calcium 8.8 mg/dl (8.4-10.2); Carbon Dioxide 29 mmol/L (22.0-30.0); Globulin 3.1 g/dL (1.3-3.2); Glucose 123 mg/dl (74-100); Total Protein,Serum 7.6 g/dl (6.3-8.2)
[2022-08-07 12:26] LABS: Troponin I < 0.01 ng/ml (0.00-0.034)
--- NOTE | 2022-08-07 15:05 | ECG_ITS ---
APPROVED REPORT Exam: Resting ECG HR:55 bpm ECG Measurements Heart Rate 55 AXES MS 154 P 40 QRSd 86 QRS -7 QT 416 T 34 QTc 406 Conclusion SINUS BRADYCARDIA LOW QRS VOLTAGE IN PRECORDIAL LEADS [QRS DEFLECTION < 1.0 mV IN CHEST LEADS] Late R wave progression ABNORMAL ECG UNCONFIRMED REPORT Electronically signed by : Alex Scott MD 08/09/2022 09:35:02
--- NOTE | 2022-08-07 15:57 | PC.NURSE ---
PC to lab, approx. 15 more minutes for 2nd trop to be completed
--- NOTE | 2022-08-07 16:22 | PC.NURSE ---
patient informed on status of labs results
[2022-08-07 16:37] LABS: Troponin I < 0.01 ng/ml (0.00-0.034)
== END 2022-08-07 17:27 | disposition home or self-care (01) ==
PROVIDERS: Emergency Provider Emergency Medicine
DX: R07.9 Chest pain, unspecified (principal)
CPT/HCPCS: 36415; 71045; 80053; 84484; 85025; 93005; 99285

== ENCOUNTER → 2022-09-16 06:44 | Outpatient (CLI) | payer MEDICAID, SELFPAY ==
--- NOTE | 2022-09-16 06:45 | NM_ITS ---
APPROVED REPORT Exam: Nuclear Stress Test Indication: CAD, H/O PA, 2 STENTS, HTN, HYPERLIPIDEMIA, C.P. Patient Location: Outpatient Stress Tech: Kia Price RI Tech:Jacinta ShelleyBERNARD RT (R)(N)(M) Ht: 5 ft 6 in Wt: 165 lbs HR: 59 bpm BP: 117/77 mmHg BSA: 1.84 m2 TID: 1.05 BMI: 26.6 History: CAD, H/O PA, 2 STENTS, HTN, HYPERLIPIDEMIA, C.P. Procedure: Patient received 0.4 mg of intravenous Lexiscan, resting heart rate 59 bpm, resting blood pressure 117/77 mmHg, with Lexiscan maximum heart rate achieved was 105 bpm which is % of the maximum predicted heart rate and blood pressure was 129/85 mmHg. With Lexiscan, patient denied any complaint of chest pain. Cardiac Stress and Resting SPECT Images: Cardiac Stress and Resting SPECT images were obtained using technetium 99m Myoview 30.5 mCi stress and 10.59 mCi at rest. Diaphragmatic attenuation is present. Resting and stress images demonstrate a large-sized, moderate, predominantly reversible perfusion defect anteriorly from the base and extending distally involving the apex. Gated images demonstrate a low-normal LV global systolic function with mild hypokinesis of the LV anterior wall. LVEF is calculated at Conclusion: Large-sized, moderate, predominantly reversible perfusion defect anteriorly from the base and extending distally involving the apex. These findings are consistent with reversible ischemia Gated images demonstrate a low-normal LV global systolic function with mild hypokinesis of the LV anterior wall. LVEF is calculated at 53% Electronically signed by : Susanna Barry, 09/16/2022 17:34:26
--- NOTE | 2022-09-16 06:45 | CA_ITS ---
APPROVED REPORT Exam: Pharmacologic Technologist: Kia Price, Ht: 5 ft 6 in Wt: 168 lbs BSA: 1.86 m2 HR: 59 bpm BP: 117/77 mmHg Rhythm: NSR Medical History Medical History: Hyperlipidemia Medications: Aspirin,,,,, Pantoprazole,,,,, Atorvastatin,,,,, Carvedilol,,,,, EnTRESTO,,,,, Allergies: CODEINE, ISOSORBIDE, MORPHINE Cardiac Risk Factors: Hyperlipidemia, FHX of CAD Stress Test Details Test: LEXISCAN HR Resting HR: 61 bpm Max Heart Rate (APMHR): 178 bpm Max HR Achieved: 108 bpm Target HR (85% APMHR): 151 bpm % of APMHR: 61 Recovery HR: 79 bpm BP Resting BP: 117/77 mmHg Max BP: 208/169 mmHg Recovery BP: 133.0/84.0 mmHg ECG Resting ECG: NSR, DELAYED R/S TRANSITION Clinical Exercise duration: 04:04 min Highest Stage Achieved: Exercise capacity: n/a METs Stress ECG Conclusion PT HAD NAUSEA NO ISCHEMIC CHANGES WERE PRESENT Test Summary REST . . . . . . . Resting REST 03:34 . . 61 . 117/ 77 . . Stage 1 . . . . . . . Myoview Injected Stage 1 01:00 . . 106 . . . . Stage 2 01:00 . . 107 . 129/ 85 . . Stage 3 01:00 . . 94 . 129/ 82 . . Stage 4 01:00 . . 85 . 123/ 84 . . Stage 4 01:04 . . 86 . 123/ 84 . Stop exercise at 04:04 RECOVERY 01:00 . . 88 . 124/ 77 . . RECOVERY 02:00 . . 84 . 124/ 77 . . RECOVERY 03:00 . . 80 . 129/ 79 . . RECOVERY 03:22 . . 82 . 133/ 84 . . Electronically signed by : Susanna Barry, 09/16/2022 17:11:57
== END ==
PROVIDERS: PCP Emergency Medicine; Visit Provider Physician Assistant
DX: R07.89 Other chest pain (principal); I25.10 Atherosclerotic heart disease of native coronary artery without angina pectoris; I21.3 ST elevation (STEMI) myocardial infarction of unspecified site; I25.5 Ischemic cardiomyopathy; I50.22 Chronic systolic (congestive) heart failure; I51.7 Cardiomegaly; E78.2 Mixed hyperlipidemia; K21.9 Gastro-esophageal reflux disease without esophagitis
CPT/HCPCS: 78452; 93017; 93306; A9502; J2785

== ENCOUNTER 2022-09-25 07:44 | Day surgery (SDC) | payer MEDICAID, SELFPAY ==
[2022-09-25] VITALS (16 sets, daily range): BP systolic 89–142; BP diastolic 50–90; PULSE 50–67; RESP 16–20; O2SAT 95–99; BMI 26.9
--- NOTE | 2022-09-25 07:16 | IR_ITS ---
APPROVED REPORT Patient Location: Outpatient [place]: BERNARD Nolan RT (R) PROCEDURES Left heart catheterization Left ventriculogram Selective coronary angiogram INDICATION Angina pectoris, Known coronary artery disease, Abnormal Myoview, Informed consent was obtained prior to the procedure. COMPLICATIONS None Estimated Blood Loss: Less than 10 mls TECHNIQUE One percent lidocaine was used to anesthetize the right groin. The right femoral artery was accessed via the Seldinger technique. A 4-Macedonian sheath was placed in the right femoral artery. The JL-4 and JR-4 catheter was also used to perform left heart catheterization left ventriculogram and selective coronary angiogram. At the end of the procedure the patient was transferred to the post-op holding area in stable condition for arterial sheath removal. ANGIOGRAPHIC RESULTS The left main artery Normal The left anterior descending artery Has a stent in the proximal segment which is widely patent free of in-stent restenosis with excellent proximal distal transitioning. First diagonal artery is widely patent and not encroached upon by the proximal LAD stent. The remaining LAD is a small caliber vessel with mild 10% luminal irregularities The circumflex artery Dominant with mild luminal irregularities The right coronary artery Small nondominant with proximal and mid vessel 10% luminal regularities The [place] ventriculogram reveals Mildly reduced to 50% The left ventricular end-diastolic pressure 20 mmHg IMPRESSION Widely patent proximal LAD stent as described above Mildly reduced ejection fraction Mildly elevated LVEDP PLAN 1. Risk factor modification 2. Medical management Electronically signed by : Kashif Jurado MD 09/25/2022 10:40:06
[2022-09-25 08:47] LABS: Basophils # 0.1 K/mm3 (0-0.2); Basophils % 1.6 % (0.1-2.0); Eosinophils # 0.2 K/mm3 (0.0-0.4); Hematocrit 46.5 % (42.0-52.0); Hemoglobin 15.6 g/dL (14.1-18.0); Lymphocytes % 27.5 % (10-50); Mean Corpuscular HGB Conc 33.6 g/dL (31.8-35.4); Mean Corpuscular Hemoglobin 29.8 pg (27.0-31.2); Mean Corpuscular Volume 88.8 fl (80-94); Mean Platelet Volume 8.9 fl (7.4-10.4); Monocytes # 0.5 K/mm3 (0.1-1.0); Monocytes % 6.9 % (1.7-9.3); Neutrophils # 4.3 K/mm3 (1.8-7.8); Neutrophils % 60.9 % (37.0-80.0); Platelet Count 256 K/mm3 (142-424); Red Blood Count 5.24 M/mm3 (4.60-6.20); Red Cell Distribution Width 13.4 % (11.5-17.5); White Blood Count 7.1 K/mm3 (4.8-10.8)
[2022-09-25 08:56] LABS: Anion Gap 16.1 mEq/L (5-15); Blood Urea Nitrogen 13 mg/dl (9-20); Calcium 9.1 mg/dl (8.4-10.2); Carbon Dioxide 26 mmol/L (22.0-30.0); Chloride 101 mmol/L (98-107); Creatinine Clearance Estimated 115 mL/min (50-200); Estimated Glomerular Filt Rate 93 ml/min (>60); GFR (African American) 112 ML/MIN (>60); Glucose 122 mg/dl (74-100); Potassium 4.1 mmoL/L (3.5-5.1); Sodium 139 mmol/L (136-145)
[2022-09-25 08:58] LABS: Activated Partial Thrombo Time 27.4 seconds (22.8-30.6)
== END 2022-09-25 13:49 | disposition home or self-care (01) ==
PROVIDERS: PCP Emergency Medicine; Visit Provider Internal Medicine
DX: I25.118 Atherosclerotic heart disease of native coronary artery with other forms of angina pectoris (principal); I50.22 Chronic systolic (congestive) heart failure; I25.2 Old myocardial infarction; I51.7 Cardiomegaly; I25.5 Ischemic cardiomyopathy; I11.0 Hypertensive heart disease with heart failure
CPT/HCPCS: 80048; 85025; 85730; 93458; 99152; C1725; C1769; J1644; Q9967

== ENCOUNTER → 2022-10-30 12:47 | Outpatient (CLI) | payer MEDICAID, SELFPAY | PROVIDERS: PCP Emergency Medicine; Visit Provider Nurse Practitioner Family | DX: G47.30 Sleep apnea, unspecified (principal); R06.83 Snoring; R53.83 Other fatigue; I25.10 Atherosclerotic heart disease of native coronary artery without angina pectoris; I25.5 Ischemic cardiomyopathy; I21.3 ST elevation (STEMI) myocardial infarction of unspecified site | CPT/HCPCS: G0399 ==

== ENCOUNTER 2023-02-27 14:49 | Observation (INO) | payer MEDICAID, SELFPAY ==
[2023-02-27] VITALS (13 sets, daily range): BP systolic 90–135; BP diastolic 57–90; PULSE 60–82; RESP 14–22; TEMP 36.6–36.7; O2SAT 95–100; BMI 27.1; BMI 25.5
--- NOTE | 2023-02-27 14:49 | ECG_ITS ---
APPROVED REPORT Exam: Resting ECG HR:60 bpm ECG Measurements Heart Rate 60 AXES IN 151 P 65 QRSd 86 QRS 59 QT 361 T 70 QTc 362 Conclusion SINUS RHYTHM LOW QRS VOLTAGE IN PRECORDIAL LEADS [QRS DEFLECTION < 1.0 mV IN CHEST LEADS] BORDERLINE ECG UNCONFIRMED REPORT Electronically signed by : Alex Scott MD 02/27/2023 21:36:00
--- NOTE | 2023-02-27 14:55 | XR_ITS ---
FINAL REPORT CLINICAL HISTORY: Precordial chest pain smoker COMPARISON: 08/07/2022 FINDINGS: A single portable view of the chest was obtained. The heart size and pulmonary vascularity are within normal limits. The mediastinum is within normal limits. There is a mild opacity in the medial right base of uncertain etiology which may represent atelectasis or pneumonia. The bony thorax is intact. IMPRESSION: Mild opacity medial right base uncertain etiology may represent atelectasis or pneumonia. Recommend follow-up radiographs. Reviewed, Interpreted and Dictated by John Pope III, MD Transcribed by Rissa Brewster Authenticated and [facility]
--- NOTE | 2023-02-27 14:58 | HMH.EDGENADL ---
Discharge Plan Disposition Patient Disposition: Admitted Chief Complaint: Chest Pain Prescriptions Prescriptions: No Action atorvastatin 40 mg tablet 40 mg PO HS Qty: 90 3RF Hold Instructions: Home Medication placed on hold at Doctor's office Entresto 97-103 mg tablet 1 tab PO BID Qty: 60 5RF aspirin 81 mg tablet,delayed release (DR/EC) See Rx Instructions .ROUTE .COMPLEX Qty: 90 3RF Rx Instructions: TAKE ONE TABLET BY MOUTH EVERY DAY pantoprazole 40 mg tablet,delayed release (DR/EC) See Rx Instructions .ROUTE .COMPLEX Qty: 90 1RF Dose Instruction: TAKE ONE TABLET BY MOUTH EVERY DAY FOR gerd Rx Instructions: TAKE ONE TABLET BY MOUTH EVERY DAY FOR gerd carvedilol 12.5 mg tablet See Rx Instructions .ROUTE .COMPLEX Qty: 90 1RF Dose Instruction: TAKE ONE TABLET BY MOUTH TWICE DAILY FOR HIGH BLOOD PRESSURE --TAKE WITH A MEAL/FOOD-- Rx Instructions: TAKE ONE TABLET BY MOUTH TWICE DAILY FOR HIGH BLOOD PRESSURE --TAKE WITH A MEAL/FOOD-- Clinical Impressions Clinical Impression: Chest pain Discharge ED Provider: Cooper Reese General Adult HPI General Chief complaint: Chest Pain Stated complaint: chest pain Time Seen by Provider: 02/27/23 14:50 History of Present Illness HPI narrative: Patient is a 42-year-old male with past medical history of ACS status post stenting who presents emergency department for evaluation of chest pain. Onset was acute, 3 days ago. Left-sided radiating to his left upper extremity. Patient states that it is similar in quality to his previous episode of chest pain however not as severe. Due to persistent symptoms he presents here for continued evaluation. Patient has no other chronic medical conditions. Related Data Previous Rx's Medication Instructions Recorded atorvastatin 40 mg tablet 40 mg PO HS High cholesterol #90 03/04/22 tabs aspirin 81 mg tablet,delayed See Rx Instructions .Route 11/22/22 release .COMPLEX Heart disease #90 tabs sacubitril 97 mg-valsartan 103 mg 1 tab PO BID Heart failure #60 tabs 11/22/22 tablet (Entresto) carvedilol 12.5 mg tablet See Rx Instructions .Route 01/20/23 .COMPLEX #90 tabs pantoprazole 40 mg tablet,delayed See Rx Instructions .Route 01/20/23 release .COMPLEX #90 tabs Allergies Allergy/AdvReac Type Severity Reaction Status Date / Time codeine AdvReac Verified 01/16/23 11:26 isosorbide AdvReac headache Verified 01/16/23 11:26 morphine AdvReac Verified 01/16/23 11:26 PFSH PFS Disclaimer: The information contained in this section may have been updated after the patient was seen, as this information can be updated by other users. Medical History (Updated 02/27/23 @ 18:48 by Cooper Reese MD) Abnormal result of cardiovascular function study Angina pectoris Anxiety CAD (coronary artery disease) Cardiomyopathy Chest pain Dyspnea Gastroesophageal reflux disease Systolic heart failure Typical angina Family History Other Family history of hyperlipidemia Family history of hypertension Family history of myocardial infarction Family history of stroke Social History Smoking Status: Current some day smoker alcohol intake: never substance use type: marijuana current occupational status: unemployed Travel in the last 8 weeks: None household members: significant other and none housing: apartment marital status: single current occupation: [employer] current occupational exposures/hazards: No caffeine: Yes ROS Obtained: Yes Systems reviewed as appropriate & no additional complaints except as documented Physical Exam General General appearance: alert and in no apparent distress Head Head exam: atraumatic and normocephalic Eye Eye exam: Present PERRL and EOMI ENT ENT exam: Present mucous membranes moist Neck Neck exa
[2023-02-27 15:04] LABS: Basophils # 0.1 K/mm3 (0-0.2); Eosinophils # 0.1 K/mm3 (0.0-0.4); Eosinophils % 1.8 % (0.1-12.0); Hematocrit 46.6 % (42.0-52.0); Hemoglobin 16.2 g/dL (14.1-18.0); Lymphocytes # 1.6 K/mm3 (0.7-4.5); Lymphocytes % 21.4 % (10-50); Mean Corpuscular HGB Conc 34.8 g/dL (31.8-35.4); Mean Corpuscular Hemoglobin 31.3 pg (27.0-31.2); Mean Corpuscular Volume 89.8 fl (80-94); Mean Platelet Volume 8.5 fl (7.4-10.4); Monocytes # 0.4 K/mm3 (0.1-1.0); Monocytes % 5.8 % (1.7-9.3); Neutrophils # 5.1 K/mm3 (1.8-7.8); Platelet Count 212 K/mm3 (142-424); Red Blood Count 5.19 M/mm3 (4.60-6.20); Red Cell Distribution Width 13.4 % (11.5-17.5); White Blood Count 7.2 K/mm3 (4.8-10.8)
[2023-02-27 15:16] LABS: Chloride 103 mmol/L (98-107); Potassium 4.1 mmoL/L (3.5-5.1); Sodium 141 mmol/L (136-145)
[2023-02-27 15:19] LABS: Alanine Aminotransferase 60 U/L (12-78); Albumin Level 4.9 g/dl (3.5-5.0); Albumin/Globulin Ratio 1.6 (1.1-1.8); Alkaline Phosphatase 67 U/L (38-126); Anion Gap 8.1 mEq/L (5-15); Aspartate Amino Transferase 47 U/L (17-59); Blood Urea Nitrogen 12 mg/dl (9-20); Carbon Dioxide 34 mmol/L (22.0-30.0); Creatinine Clearance Estimated 94 mL/min (50-200); Estimated Glomerular Filt Rate 73 ml/min (>60); GFR (African American) 89 ML/MIN (>60); Total Protein,Serum 7.9 g/dl (6.3-8.2)
[2023-02-27 15:20] LABS: Calcium 9.2 mg/dl (8.4-10.2); Glucose 114 mg/dl (74-100)
[2023-02-27 15:39] LABS: Troponin I < 0.01 ng/ml (0.00-0.034)
--- NOTE | 2023-02-27 15:54 | PC.NURSE ---
Rounded on patient; patient stated he feels like the Nitro helped the pain some. Warm blanket provided to patient; call light within reach of patient
[2023-02-27 18:13] LABS: Troponin I < 0.01 ng/ml (0.00-0.034)
--- NOTE | 2023-02-27 18:28 | PC.NURSE ---
paged Dr Jurado
--- NOTE | 2023-02-27 18:29 | PC.NURSE ---
Dr Reese speaking to Dr Jurado
--- NOTE | 2023-02-27 18:33 | PC.NURSE ---
Called to get patient a tray. Rounded on paitent; provided patient chips and a drink
--- NOTE | 2023-02-27 19:18 | PC.NURSE ---
ED doc on phone with hospitalist
--- NOTE | 2023-02-27 19:19 | PC.NURSE ---
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
--- NOTE | 2023-02-27 19:22 | PC.NURSE ---
OBSERVATION ADMISSION TO 206 WITH DX OF CHEST PAIN TO SERVICE OF HOSPITALIST.
--- NOTE | 2023-02-27 19:44 | PC.NURSE ---
Report called to Crow ALVARADO
--- NOTE | 2023-02-27 19:46 | EXP.HP ---
History of Present Illness *Admission Date: 02/27/23 *Reason for visit:: chest pain *History of present illness: 42 year old male presented to the ED for c/o CP and SWIFT since Friday. Pt reports pain is intermitted and radiates into his left arm causing numbness. The CP is located more on the left maxillary line versus center of chest. Pt states pain occurs during rest. PMHX of ACS, HLD, HTN, GERD, HF, and CAD. Pt had thrombectomy and drug eluting stent placed in proximal ID in December of 2020. The Pt's ED work up reveals negative troponins, Chest xray reveals opacity in the right lung, and his EKG reveals sinus rhythm with t wave inversions in leads L1 and L2. 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 The ED physician consulted the hospitalist team for further medical management. I admitted the pt to the medical surgical floor. He will have a cardiology consult, cardiac monitoring, and be NPO after midnight. [facility] Disclaimer: The information contained in this section may have been updated after the patient was seen, as this information can be updated by other users. Medical History (Updated 02/27/23 @ 18:48 by Cooper Reese MD) Abnormal result of cardiovascular function study Angina pectoris Anxiety CAD (coronary artery disease) Cardiomyopathy Chest pain Dyspnea Gastroesophageal reflux disease Systolic heart failure Typical angina Surgical History (Updated 02/27/23 @ 20:32 by Yanni Wolf RN) H/O cardiac catheterization Family History (Updated 02/27/23 @ 20:32 by Yanni Wolf RN) Father Family history of myocardial infarction Grandfather Family history of myocardial infarction Grandmother Family history of myocardial infarction Other Family history of hyperlipidemia Family history of hypertension Family history of stroke Social History (Updated 02/27/23 @ 20:33 by Yanni Wolf RN) Smoking Status: Current some day smoker alcohol intake: never substance use type: marijuana current occupational status: unemployed Travel in the last 8 weeks: None household members: significant other and none housing: apartment marital status: single current occupation: [employer] current occupational exposures/hazards: No caffeine: Yes Review of Systems *Cardiovascular Cardiovascular: Reports chest pain *Respiratory Respiratory: Reports system reviewed and no additional complaints, except as documented *Gastrointestinal Gastrointestinal: Reports system reviewed and no additional complaints, except as documented *Genitourinary Genitourinary: Reports system reviewed and no additional complaints, except as documented *Musculoskeletal Musculoskeletal: Reports system reviewed and no additional complaints, except as documented *Neurologic Neurologic: Reports system reviewed and no additional complaints, except as documented Meds Home Medications and Allergies Home Medications Medication Instructions Recorded Confirmed Type atorvastatin 40 mg tablet 40 mg PO HS High cholesterol #90 03/04/22 02/28/23 Rx tabs sacubitril 97 mg-valsartan 103 mg 1 tab PO BID Heart failure #60 tabs 11/22/22 02/28/23 Rx tablet (Entresto) aspirin 81 mg tablet,delayed 81 mg PO DAILY Heart Health 02/27/23 02/28/23 History release carvedilol 12.5 mg tablet 12.5 mg PO BID High Blood Pressure 02/27/23 02/28/23 History pantoprazole 40 mg tablet,delayed 40 mg PO DAILY Acid Reflux 02/27/23 02/28/23 History release ranolazine 500 mg tablet,extended 500 mg PO BID #14 tabs 02/28/23 Rx release,12 hr New Prescriptions to Start Prescriptions: ranolaziZafar German Allergies Allergy/AdvReac Type Severity Reaction Status Date / Time codeine AdvReac Verified 01/16/23 11:26 isosorbide AdvReac headache Verified 01/16/23 11:26 morphine AdvReac Verified 01/16/23 11:26 Exam Data for Last 24 h
--- NOTE | 2023-02-27 20:14 | PC.NURSE ---
pt arrived to floor via wheelchair @19:55
[2023-02-27 21:59] LABS: Troponin I < 0.01 ng/ml (0.00-0.034)
[2023-02-28] VITALS: PULSE 47
[2023-02-28 04:00] VITALS: BP 101/55; PULSE 50; PULSE 58; RESP 16; TEMP 36.7; O2SAT 97
[2023-02-28 06:31] LABS: Blood Urea Nitrogen 15 mg/dl (9-20); Calcium 8.7 mg/dl (8.4-10.2); Carbon Dioxide 28 mmol/L (22.0-30.0); Chloride 104 mmol/L (98-107); Creatinine Clearance Estimated 109 mL/min (50-200); Estimated Glomerular Filt Rate 93 ml/min (>60); GFR (African American) 112 ML/MIN (>60); Glucose 96 mg/dl (74-100); Magnesium 1.8 mg/dl (1.6-2.3); Sodium 138 mmol/L (136-145)
--- NOTE | 2023-02-28 06:32 | CA_ITS ---
APPROVED REPORT EXAM: Comprehensive 2D, Doppler, and color-flow Echocardiogram Corrugator Operator: Diana Barbosa, RCS, RVS Ht: 5 ft 6 in Wt: 159lbs BSA: 1.81 BP: 127/85 mmHg Indications: CAD, CP, arm pain, Hx- resolved CM , Murmur 2D Dimensions LVDd 4.27 cm LVEF (Visual) 52.10 % LVDs 3.14 cm LA Volume 49.50 mL Aortic Root 2.62 cm LA Volume Index 27.599930 mL/m2 (M/F) 16-34 Left Atrium 3.04 cm LVOT 1.85 cm (M/F) 1.5-2.5 M-Mode Dimensions RVDd 2.48 cm (0.9-2.6) LA Diam 3.50 cm (1.9-4.0) LVDd 4.86 cm (3.5-5.7) Ao Diam 3.11 cm (2.0-3.7) LVDs 3.22 cm (3.5-5.7) IVSd 1.07 cm (0.6-1.1) PWd 0.91 cm (0.6-1.1) EF (Teich) 62.40% EPSs 0.71 cm FS 33.70% EDV (Teich) 110.70 mL TAPSE 2.51 (<1.7) ESV (Teich) 41.60 mL LV Diastology E Decel Time 287.00 (160-240 msec) E/A Ratio 1.85 MED E' 10.00 (< 7 cm/sec) MED A' 6.70 cm/s E'/MED E' Ratio 5.91 (>14) LAT E' 11.30 (<10 cm/sec) LAT A' 8.50 cm/s E/LAT E' Ratio 5.23 (>14) Aortic Valve LVOT Max 97.00 (70-110 cm/s) LVOT VTI 19.99 cm AoV Peak Andrea. 102.00 (50-130 cm/s) AO Peak GR. 4.10 mmHg AO Mean GR. 2.10 (<5 mmHg) AO VTI 23.24 (18-25 cm) ADARSH (VTI) 2.31 (2.5-4.5 cm2) Mitral Valve MV A Velocity 32.00 (40-130 cm/s) E/A Ratio 1.85 MV Decel. Time 287.00 (160-240 ms) Pulmonary Valve IA End VMAX 166.00 cm/s Tricuspid Valve TR P. Velocity 204.00 cm/s RAP Estimate 10.00 mmHg RVSP 26.70 mmHg Left Ventricle The left ventricle is normal size. Left ventricular systolic function is mildly decreased. There is normal left ventricular wall thickness. There is moderate hypokinesis of the septal, anteroseptal, and apical LV burris. The left ventricular diastolic function is normal. LVEF is 45%. Right Ventricle The right ventricle is mildly reduced dilated. The right ventricular systolic function is mildly reduced. Atria The left atrium size is normal. The right atrium size is normal. There is no Doppler evidence of interatrial shunt. Aortic Valve The aortic valve is trileaflet. The aortic valve opens well. There is no aortic valvular stenosis. No aortic regurgitation is present. Mitral Valve The mitral valve is normal in structure. No evidence of mitral valve stenosis. There is no mitral valve regurgitation noted. Tricuspid Valve Tricuspid valve leaflets are thin and pliable. Trace tricuspid regurgitation. There is insufficient TR jet to estimate RVSP. Pulmonic Valve The pulmonary valve is normal in structure. Trace pulmonic regurgitation. Great Vessels The aortic root is normal in size. The ascending aorta is normal in size. IVC is normal in size and collapses >50% with inspiration. Pericardium There is no pericardial effusion. Other Information Study Quality: Fair Conclusion Mild reduction in LV global systolic functio (LVEF 45%). Moderate hypokinesis of the septal, anteroseptal, and apical LV burris. Mildly dilated RV with mild reduction in RV systolic function. No significant valvular stenosis or regurgitation. Compared to prior study from 08/2022, the mild LVEF reduction is now new. Electronically signed by : Susanna Barry MD 02/28/2023 14:36:59
[2023-02-28 06:46] LABS: Basophils # 0.1 K/mm3 (0-0.2); Eosinophils # 0.1 K/mm3 (0.0-0.4); Monocytes # 0.4 K/mm3 (0.1-1.0); Red Cell Distribution Width 13.4 % (11.5-17.5)
[2023-02-28 06:55] LABS: Hematocrit 42.4 % (42.0-52.0); Lymphocytes % 35.4 % (10-50); Mean Corpuscular HGB Conc 34.5 g/dL (31.8-35.4); Mean Corpuscular Hemoglobin 31.2 pg (27.0-31.2); Mean Corpuscular Volume 90.3 fl (80-94); Monocytes % 7.6 % (1.7-9.3); Platelet Count 199 K/mm3 (142-424); Red Blood Count 4.69 M/mm3 (4.60-6.20); White Blood Count 5.6 K/mm3 (4.8-10.8)
[2023-02-28 06:56] LABS: Hemoglobin 14.6 g/dL (14.1-18.0)
--- NOTE | 2023-02-28 07:22 | HMH.PHAINT1 ---
Pharmacy Intervention Comments: MEDICATION RECONCILIATION COMPLETED ON PATIENT USING EXTERNAL FILL HISTORY FROM PHARMACY. -TIAGO PA, QUAND
--- NOTE | 2023-02-28 07:59 | EXP.CARD.CON ---
History of Present Illness History of Present Illness Consult date: 02/28/23 Requesting physician: Zafar Brush Consult reason: chest pain Chief complaint: chest pain Additional Medical History:: 1. Coronary disease A. ST elevation ME, 01/22/2021 with subsequent thrombectomy and coronary stenting. EF 20-25% with anterior and apical hypokinesis. B. Cardiomyopathy, LifeVest applied, 12/2020 C. Echo, 12/2020, EF 25%, multiple segmental wall abnormalities, mild MR/TR with RVSP of 46 mm Hg D. Limited Echo, 03/07/2021, EF 40%, Life vest removed. E. LHC, 04/2021, patent LAD stents. EF 45% with LVEDP of 15 mm Hg consistent with endothelial dysfunction exacerbated by tobacco use. F. GXT myoview, 08/2022, anterior-apical reversible ischemia, EF 53% G. LHC, 09/25/2022, widely patent stents, EF 50%, LVEDP of 20 mm Hg 2. Hyperlipidemia 3. Tobacco use 4. Elevated LFT's, 02/22/2021 5. Right renal mass, 03/2021, on ultrasound and MRI of abdomen A. Evaluation by Urology ([place]) B. CT of abdomen, 10/2021, stable 1 cm right renal mass History of present illness: 42 year old male presented to the ED for c/o CP and SWIFT since Friday. Pt reports pain is intermitted and radiates into his left arm causing numbness. The CP is located more on the left maxillary line versus center of chest. Pt states pain occurs during rest. PMHX of ACS, HLD, HTN, GERD, HF, and CAD. Pt had thrombectomy and drug eluting stent placed in proximal AD in December of 2020. The Pt's ED work up reveals negative troponins, Chest xray reveals opacity in the right lung, and his EKG reveals sinus rhythm with t wave inversions in leads L1 and L2. The ED physician consulted cardiology who plans to take pt to the laborer laboratory in the morning. The ED physician consulted the hospitalist team for further medical management. I admitted the pt to the medical surgical floor. He will have a cardiology consult, cardiac monitoring, and be NPO after midnight. The above per KAYLA Christensen, for the Hospitalist service. Events as noted above reviewed with the patient and confirmed. Patient's complaints have been unchanged over the last several months and mainly revolve around his left arm numbness/discomfort which has been intermittent over the last year. He does have some left-sided pleuritic nature type chest pain that worsens with deep breathing or cough. Chest x-ray this admission is questionable for right midlung opacity suspicious for atelectasis or pneumonia. He denies any productive cough recently. He does recall an episode of sudden sweating recently. Patient had cardiac catheterization in August of this year showing widely patent coronary arteries with mildly elevated left ventricular end-diastolic pressure. Previously treated for endothelial dysfunction with a trial of isosorbide which was discontinued due to headaches. He did take Ranexa for a while but then discontinued when chest discomfort resolved. Troponins this admission are normal. Preliminary echocardiogram today shows EF around 50% with persistent anterior/apical hypokinesis which has been present since his STEMI in 2020. [facility] Disclaimer: The information contained in this section may have been updated after the patient was seen, as this information can be updated by other users. Medical History (Updated 02/27/23 @ 18:48 by Cooper Reese MD) Abnormal result of cardiovascular function study Angina pectoris Anxiety CAD (coronary artery disease) Cardiomyopathy Chest pain Dyspnea Gastroesophageal reflux disease Systolic heart failure Typical angina Surgical History (Updated 02/27/23 @ 20:32 by Yanni Wolf RN) H/O cardiac catheterization Family History (Updated 02/27/23 @ 20:32 by Yanni Wolf RN) Family history of stroke Family history of hypertension Family history of myocardial infarction Father Grandfather Grandmother Family history of hyperlipidemia Social History (Updated
[2023-02-28 08:00] VITALS: BP 102/59; PULSE 48; RESP 18; TEMP 36.5; O2SAT 97; O2SAT 98
[2023-02-28 08:24] VITALS: PULSE 47
--- NOTE | 2023-02-28 08:37 | PC.NURSE ---
COURTESY TECH NOTE; ROUNDED ON PT 0735, PT DENIED NEED FOR ASSISTANCE WITH RESTROOM OR NEED TO REPOSITION IN BED. CALL LIGHT WITHIN REACH, NO FURTHER REQUESTS AT THIS TIME ELLIE BHATT
--- NOTE | 2023-02-28 10:59 | EXP.DC.SUM ---
General Admission date:: 02/27/23 Discharge date: 02/28/23 HPI HPI HPI: 42 year old male presented to the ED for c/o CP and SWIFT since Friday. Pt reports pain is intermitted and radiates into his left arm causing numbness. The CP is located more on the left maxillary line versus center of chest. Pt states pain occurs during rest. PMHX of ACS, HLD, HTN, GERD, HF, and CAD. Pt had thrombectomy and drug eluting stent placed in proximal ID in December of 2020. The Pt's ED work up reveals negative troponins, Chest xray reveals opacity in the right lung, and his EKG reveals sinus rhythm with t wave inversions in leads L1 and L2. The ED physician consulted cardiology who plans to take pt to the dental laboratory technician apprentice in the morning. The ED physician consulted the hospitalist team for further medical management. I admitted the pt to the medical surgical floor. He will have a cardiology consult, cardiac monitoring, and be NPO after midnight. Hospital Course Hospital Course Hospital Course: 42 year old male presented to the ED for c/o CP and SWIFT since Friday. Pt reports pain is intermitted and radiates into his left arm causing numbness. The CP is located more on the left maxillary line versus center of chest. Pt states pain occurs during rest. PMHX of ACS, HLD, HTN, GERD, HF, and CAD. Pt had thrombectomy and drug eluting stent placed in proximal ID in December of 2020. The Pt's ED work up reveals negative troponins, Chest xray reveals opacity in the right lung, and his EKG reveals sinus rhythm with t wave inversions in leads L1 and L2. The ED physician consulted cardiology who plans to take pt to the dental laboratory technician apprentice in the morning. The ED physician consulted the hospitalist team for further medical management. I admitted the pt to the medical surgical floor. He will have a cardiology consult, cardiac monitoring, and be NPO after midnight. Plan as to follow: CHEST PAIN likely MSK CAD HLD HF GERD -continue home aspirin 81mg, atorvastatin 40 mg, carvedilol 12.5, pantoprazole 40mg, and sacubitril 97mg- valsartan 103 mg. Renexa has been added TOBACCO USE -denies tobacco use. Reports marijuana Exam Data for Last 24 hours Vital signs and Labs for Last 24 Hours: Temp Pulse Resp BP Pulse Ox O2 Del Method 97.7 F 47 L 18 102/59 L 98 Room Air 02/28/23 08:00 02/28/23 08:24 02/28/23 08:00 02/28/23 08:00 02/28/23 08:00 02/28/23 10:28 Laboratory Results - last 24 hr 02/27/23 14:55: WBC 7.2, RBC 5.19, Hgb 16.2, Hct 46.6, MCV 89.8, MCH 31.3 H, MCHC 34.8, RDW 13.4, Plt Count 212, MPV 8.5, Neut % (Auto) 70.0, Lymph % (Auto) 21.4, [place] % (Auto) 5.8, Eos % (Auto) 1.8, Baso % (Auto) 1.0, Neut # (Auto) 5.1, Lymph # (Auto) 1.6, [place] # (Auto) 0.4, Eos # (Auto) 0.1, Baso # (Auto) 0.1, Sodium 141, Potassium 4.1, Chloride 103, Carbon Dioxide 34 H, Anion Gap 8.1, BUN 12, Creatinine 1.10, Estimated Creat Clear 94, Estimated GFR 73, Est GFR ( Amer) 89, Glucose 114 H, Calcium 9.2, Total Bilirubin 1.0, AST 47, ALT 60, Alkaline Phosphatase 67, Troponin I < 0.01, Total Protein 7.9, Albumin 4.9, Globulin 3.0, Albumin/Globulin Ratio 1.6 02/27/23 17:43: Troponin I < 0.01 02/27/23 21:15: Troponin I < 0.01 02/28/23 05:51: WBC 5.6, RBC 4.69, Hgb 14.6, Hct 42.4, MCV 90.3, MCH 31.2, MCHC 34.5, RDW 13.4, Plt Count 199, MPV 9.0, Neut % (Auto) 54.0, Lymph % (Auto) 35.4, [place] % (Auto) 7.6, Eos % (Auto) 2.0, Baso % (Auto) 1.0, Neut # (Auto) 3.0, Lymph # (Auto) 2.0, [place] # (Auto) 0.4, Eos # (Auto) 0.1, Baso # (Auto) 0.1, Sodium 138, Potassium 4.0, Chloride 104, Carbon Dioxide 28, Anion Gap 10.0, BUN 15, Creatinine 0.90, Estimated Creat Clear 109, Estimated GFR 93, Est GFR ( Amer) 112 D, Glucose 96, Calcium 8.7, Magnesium 1.8 I & O for Last 24 hours: Intake & Output 02/25/23 02/26/23 02/27/23 02/28/23 23:59 23:59 23:59 23:59 Intake Total 200 / 200 Output Total 0 / 0 Balance 0 / 200 200 / 200 Weight 72.121 kg Constitutional Constitutional: no acute distress
--- NOTE | 2023-02-28 11:30 | HMH.PHAINT1 ---
Pharmacy Intervention Comments: DISCHARGE MEDICATION COUNSELING PROVIDED. DISCUSSED RANOLAZINE (FOR CHEST PAIN, TWICE DAILY, N/V, CONSTIPATION, DIZZINESS, LIGHTHEADEDNESS, HEADACHE, SLOWED HEART RATE, LOW BP POSSIBLE). PATIENT VERBALIZED NO QUESTIONS AT THIS TIME.
[2023-02-28 12:00] VITALS: BP 102/66; PULSE 60; RESP 20; TEMP 36.6; O2SAT 97
--- NOTE | 2023-03-03 15:34 | CARE MANAGER ---
patient returned phone call. Discussed discharge from hospital. he states he is doing well and is aware of follow up appointments. CHRISTIANO Su
== END 2023-02-28 12:17 | disposition home or self-care (01) ==
LOC: ER 18:48 → 2ND 19:28
PROVIDERS: Nurse Practitioner Critical Care Medicine; Admitting Provider Internal Medicine; Emergency Provider Emergency Medicine; PCP Emergency Medicine; Visit Provider Internal Medicine
DX: R07.9 Chest pain, unspecified (principal); I25.10 Atherosclerotic heart disease of native coronary artery without angina pectoris; E78.2 Mixed hyperlipidemia; F17.210 Nicotine dependence, cigarettes, uncomplicated; K21.9 Gastro-esophageal reflux disease without esophagitis; F41.9 Anxiety disorder, unspecified; R20.0 Anesthesia of skin; I25.5 Ischemic cardiomyopathy; Z79.899 Other long term (current) drug therapy; Z86.16 Personal history of COVID-19
CPT/HCPCS: 36415; 71045; 80048; 80053; 83735; 84484; 85025; 93005; 93306; 99285; G0378

== ENCOUNTER 2023-03-13 08:01 | Day surgery (SDC) | payer MEDICAID, SELFPAY ==
[2023-03-13] VITALS (12 sets, daily range): BP systolic 95–139; BP diastolic 50–86; PULSE 55–72; RESP 17–20; O2SAT 97–100; BMI 25.7
--- NOTE | 2023-03-13 07:08 | IR_ITS ---
APPROVED REPORT Patient Location: Outpatient Maintenance Mechanic Engine: BERNARD Mayo RT (R) PROCEDURES Left heart catheterization Left ventriculogram Selective coronary angiogram FFR to the LAD Drug-eluting stent deployment to the left main artery Drug-eluting stent deployment to the left anterior descending artery Intravascular ultrasound of the left main artery and LAD INDICATION Ischemic cardiomyopathy, Coronary artery disease, Ischemic response to adenosine with an FFR index of 0.79, Complex intervention using IVUS as guidance to reduce mortality, Informed consent was obtained prior to the procedure. COMPLICATIONS None Estimated Blood Loss: Less than 10 mls TECHNIQUE One percent lidocaine was used to anesthetize the right groin. The right femoral artery was accessed via the Seldinger technique. A 4-Salvadorean sheath was placed in the right femoral artery. The JL-4 and JR-4 catheter was also used to perform left heart catheterization left ventriculogram and selective coronary angiogram. At the end the diagnostic angiogram therapeutic heparin was administered with therapeutic ACT and the 4 Salvadorean sheath was exchanged for a 6 Salvadorean sheath. Initially a 6 Salvadorean JL 4 guide catheter was placed in the left main artery followed by Choice PT extra-support wire. A Shields's FFR catheter was advanced and FFR was performed down the LAD in which the FFR index dropped to 0.79. Because this mid hemodynamic significance it was decided to intervene upon the left anterior descending artery. There is a significant balance which cannot be controlled with this catheter therefore the catheter was exchanged. An EBU 3.75 guide catheter was placed in the left main artery followed by Choice PT extra-support wire down the LAD. A 3.5 x 12 mm [place] frontier stent was placed in the ostial LAD at 20 niesha. The stent stuck out further in the left main artery than intended. Because of the obstruction out of the left main artery it was felt it would be safer to stent continuously from the LAD back into the left main artery. A 4 mm x 15 mm [place] frontier stent was placed in the ostial LAD extending back into the mid left main artery and then deployed at 24 niesha. Intravascular ultrasound probe was advanced which demonstrated the left main artery stenting was undersized as well as the ostial LAD. A 5 mm x 12 mm balloon was then placed in the ostial LAD and deployed at 8 niesha. The balloon was brought back and deployed at 12 niesha in the proximal and mid left main artery. IMANI-3 flow was present before and after the procedure. There was mild 30 to 40% jailing of the ostial circumflex artery accompanied by IMANI III flow therefore no additional manipulation was made on the circumflex artery. At the end the procedure the apparatus was removed the groin was reprepped gloves were changed sheath was removed and hemostasis was achieved using Perclose device patient was transferred to the postop putting in stable condition ANGIOGRAPHIC RESULTS The left main artery Normal The left anterior descending artery Has an ostial 50% stenosis followed by proximal LAD stent which is widely patent free of in-stent restenosis with excellent distal transitioning. The circumflex artery Dominant normal The right coronary artery Is nondominant and has proximal 10 to 20% stenosis The [place] ventriculogram reveals Preserved at 50% with mild anterior wall hypokinesis The left ventricular end-diastolic pressure 10 mmHg FFR index 0.79 within the LAD IMPRESSION Hemodynamically severe disease within the LAD with successful stenting of the left main artery extending the proximal LAD severe disease reduced to 0% with 2 contiguous drug-eluting stents Preserved ejection fraction with anterior wall hypokinesis Normal left ventricular end-diast
[2023-03-13 08:38] LABS: Basophils # 0.1 K/mm3 (0-0.2); Basophils % 1.4 % (0.1-2.0); Eosinophils # 0.2 K/mm3 (0.0-0.4); Eosinophils % 2.8 % (0.1-12.0); Hematocrit 45.7 % (42.0-52.0); Hemoglobin 16.1 g/dL (14.1-18.0); Lymphocytes # 1.8 K/mm3 (0.7-4.5); Lymphocytes % 28.3 % (10-50); Mean Corpuscular HGB Conc 35.3 g/dL (31.8-35.4); Mean Corpuscular Hemoglobin 31.3 pg (27.0-31.2); Mean Corpuscular Volume 88.8 fl (80-94); Mean Platelet Volume 8.6 fl (7.4-10.4); Monocytes # 0.4 K/mm3 (0.1-1.0); Neutrophils # 3.7 K/mm3 (1.8-7.8); Neutrophils % 60.5 % (37.0-80.0); Platelet Count 210 K/mm3 (142-424); Red Blood Count 5.15 M/mm3 (4.60-6.20); Red Cell Distribution Width 13.3 % (11.5-17.5); White Blood Count 6.2 K/mm3 (4.8-10.8)
[2023-03-13 08:45] LABS: Chloride 101 mmol/L (98-107); Sodium 140 mmol/L (136-145)
[2023-03-13 08:46] LABS: Potassium 3.7 mmoL/L (3.5-5.1)
[2023-03-13 08:49] LABS: Anion Gap 13.7 mEq/L (5-15); Blood Urea Nitrogen 17 mg/dl (9-20); Calcium 9.1 mg/dl (8.4-10.2); Carbon Dioxide 29 mmol/L (22.0-30.0); Creatinine Clearance Estimated 76 mL/min (50-200); Estimated Glomerular Filt Rate 61 ml/min (>60); GFR (African American) 73 ML/MIN (>60); Glucose 108 mg/dl (74-100)
[2023-03-13 12:21] LABS: CATHL Activated Clotting Time > 400 SEC (74-125)
== END 2023-03-13 14:36 | disposition home or self-care (01) ==
PROVIDERS: PCP Emergency Medicine; Visit Provider Internal Medicine
DX: I25.118 Atherosclerotic heart disease of native coronary artery with other forms of angina pectoris (principal); I25.5 Ischemic cardiomyopathy; Z79.899 Other long term (current) drug therapy; Z86.16 Personal history of COVID-19; F17.210 Nicotine dependence, cigarettes, uncomplicated; I11.0 Hypertensive heart disease with heart failure; I50.20 Unspecified systolic (congestive) heart failure; Z95.5 Presence of coronary angioplasty implant and graft
CPT/HCPCS: 80048; 85025; 85347; 92928; 92978; 92979; 93458; 93571; 99152; 99153; C1725; C1760; C1769; C1876; C9600; J0153; J1644; Q9967

== ENCOUNTER → 2023-03-18 11:38 | Outpatient (CLI) | payer MEDICAID, SELFPAY ==
[2023-03-18 12:11] LABS: Basophils # 0.1 K/mm3 (0-0.2); Basophils % 0.9 % (0.1-2.0); Eosinophils # 0.1 K/mm3 (0.0-0.4); Hematocrit 45.3 % (42.0-52.0); Hemoglobin 15.8 g/dL (14.1-18.0); Lymphocytes # 1.5 K/mm3 (0.7-4.5); Lymphocytes % 23.3 % (10-50); Mean Corpuscular HGB Conc 34.9 g/dL (31.8-35.4); Mean Platelet Volume 8.5 fl (7.4-10.4); Monocytes # 0.4 K/mm3 (0.1-1.0); Monocytes % 5.8 % (1.7-9.3); Neutrophils # 4.5 K/mm3 (1.8-7.8); Neutrophils % 68.1 % (37.0-80.0); Platelet Count 230 K/mm3 (142-424); Red Cell Distribution Width 13.4 % (11.5-17.5); White Blood Count 6.5 K/mm3 (4.8-10.8)
[2023-03-18 12:46] LABS: Alanine Aminotransferase 68 U/L (12-78); Albumin Level 4.9 g/dl (3.5-5.0); Alkaline Phosphatase 92 U/L (38-126); Aspartate Amino Transferase 44 U/L (17-59); Bilirubin,Direct 0.1 mg/dl (0.0-0.4); Bilirubin,Indirect 0.7 mg/dL (0.0-0.9); Bilirubin,Total 0.8 mg/dl (0.2-1.3); Bilirubin,Unconjugated 0.7 mg/dL (0.0-1.1); Blood Urea Nitrogen 14 mg/dl (9-20); Calcium 9.5 mg/dl (8.4-10.2); Carbon Dioxide 24 mmol/L (22.0-30.0); Chloride 100 mmol/L (98-107); Chol/HDL Ratio 5.2 (1-3.5); Cholesterol 186 mg/dl (140-200); Estimated Glomerular Filt Rate 82 ml/min (>60); GFR (African American) 99 ML/MIN (>60); Glucose 108 mg/dl (74-100); HDL Cholesterol 36 mg/dl (40-60); Magnesium 1.8 mg/dl (1.6-2.3); Sodium 136 mmol/L (136-145); Total Protein,Serum 7.7 g/dl (6.3-8.2); Triglycerides 149 mg/dl (30-150); VLDL Cholesterol 30 mg/dL (0-40)
[2023-03-18 12:57] LABS: Direct LDL Cholesterol 112.22 mg/dL (100-129)
[2023-03-18 13:02] LABS: Free T4 (Free Thyroxine) 1.11 ng/dl (0.78-2.19)
[2023-03-18 13:15] LABS: Thyroid Stimulating Hormone 1.59 uIU/mL (0.465-4.68)
== END ==
PROVIDERS: PCP Emergency Medicine; Visit Provider Internal Medicine
DX: I25.10 Atherosclerotic heart disease of native coronary artery without angina pectoris (principal); I11.0 Hypertensive heart disease with heart failure; I50.20 Unspecified systolic (congestive) heart failure; E78.5 Hyperlipidemia, unspecified; Z72.0 Tobacco use
CPT/HCPCS: 36415; 80048; 80061; 80076; 83735; 84439; 84443; 85025

== ENCOUNTER 2023-03-26 08:18 | Outpatient (RCR) | payer MEDICAID, SELFPAY | END 2023-06-12 10:00 | disposition home or self-care (01) | LOC: PT 08:18 | PROVIDERS: Visit Provider Internal Medicine | DX: I25.10 Atherosclerotic heart disease of native coronary artery without angina pectoris (principal); Z95.5 Presence of coronary angioplasty implant and graft | CPT/HCPCS: 93798 ==

== ENCOUNTER 2023-06-12 13:19 | Outpatient (CLI) | payer MEDICAID, SELFPAY ==
--- NOTE | 2023-06-12 13:24 | XR_ITS ---
FINAL REPORT CLINICAL HISTORY: right wrist pain FINDINGS: Right wrist Four views were obtained. There is no acute fracture or dislocation. There are mild degenerative changes at the radial aspect of the wrist. No soft tissue abnormality is identified. IMPRESSION: Mild degenerative changes. Reviewed, Interpreted and Dictated by John Pope III, MD Transcribed by Krysta Ortega Authenticated and [facility]
== END 2023-06-12 23:59 ==
LOC: RAD 13:20
PROVIDERS: PCP Nurse Practitioner Family; Visit Provider Orthopaedic Surgery
DX: S69.91XA Unspecified injury of right wrist, hand and finger(s), initial encounter (principal)
CPT/HCPCS: 73110

== ENCOUNTER 2023-07-17 13:24 | Outpatient (CLI) | payer MEDICAID, SELFPAY ==
[2023-07-17 13:44] LABS: Basophils # 0.1 K/mm3 (0-0.2); Basophils % 1.2 % (0.1-2.0); Eosinophils # 0.1 K/mm3 (0.0-0.4); Eosinophils % 1.2 % (0.1-12.0); Hematocrit 48.4 % (42.0-52.0); Hemoglobin 15.7 g/dL (14.1-18.0); Lymphocytes # 1.4 K/mm3 (0.7-4.5); Lymphocytes % 24.6 % (10-50); Mean Corpuscular HGB Conc 32.5 g/dL (31.8-35.4); Mean Corpuscular Hemoglobin 30.5 pg (27.0-31.2); Mean Corpuscular Volume 93.9 fl (80-94); Mean Platelet Volume 7.5 fl (7.4-10.4); Monocytes # 0.4 K/mm3 (0.1-1.0); Monocytes % 7.1 % (1.7-9.3); Neutrophils # 3.8 K/mm3 (1.8-7.8); Neutrophils % 65.9 % (37.0-80.0); Platelet Count 219 K/mm3 (142-424); Red Blood Count 5.16 M/mm3 (4.60-6.20); Red Cell Distribution Width 13.2 % (11.5-17.5); White Blood Count 5.8 K/mm3 (4.8-10.8)
[2023-07-17 14:19] LABS: Alanine Aminotransferase 50 U/L (12-78); Albumin Level 4.6 g/dl (3.5-5.0); Alkaline Phosphatase 74 U/L (38-126); Anion Gap 8.5 mEq/L (5-15); Aspartate Amino Transferase 41 U/L (17-59); Bilirubin,Indirect 0.8 mg/dL (0.0-0.9); Bilirubin,Total 0.8 mg/dl (0.2-1.3); Bilirubin,Unconjugated 0.8 mg/dL (0.0-1.1); Blood Urea Nitrogen 10 mg/dl (9-20); Calcium 9.5 mg/dl (8.4-10.2); Carbon Dioxide 32 mmol/L (22.0-30.0); Chloride 101 mmol/L (98-107); Chol/HDL Ratio 4.4 (1-3.5); Cholesterol 170 mg/dl (140-200); Estimated Glomerular Filt Rate 82 ml/min (>60); GFR (African American) 99 ML/MIN (>60); Glucose 104 mg/dl (74-100); HDL Cholesterol 39 mg/dl (40-60); Potassium 4.5 mmoL/L (3.5-5.1); Sodium 137 mmol/L (136-145); Total Protein,Serum 6.7 g/dl (6.3-8.2); Triglycerides 98 mg/dl (30-150); VLDL Cholesterol 20 mg/dL (0-40)
[2023-07-17 14:30] LABS: Direct LDL Cholesterol 91.23 mg/dL (100-129)
[2023-07-17 14:36] LABS: Free T4 (Free Thyroxine) 1.17 ng/dl (0.78-2.19)
== END 2023-07-17 23:59 ==
LOC: LAB 13:25
PROVIDERS: PCP Nurse Practitioner Family; Visit Provider Nurse Practitioner
DX: I25.118 Atherosclerotic heart disease of native coronary artery with other forms of angina pectoris (principal); I11.9 Hypertensive heart disease without heart failure; E78.5 Hyperlipidemia, unspecified; Z87.891 Personal history of nicotine dependence
CPT/HCPCS: 36415; 80048; 80061; 80076; 83735; 84439; 84443; 85025

== ENCOUNTER 2023-08-07 13:50 | Emergency (ER) | payer MEDICAID, SELFPAY ==
--- NOTE | 2023-08-07 13:51 | ECG_ITS ---
APPROVED REPORT Exam: Resting ECG HR:55 bpm ECG Measurements Heart Rate 55 AXES IA 147 P 56 QRSd 86 QRS 54 QT 387 T 44 QTc 377 Conclusion SINUS BRADYCARDIA Electronically signed by : PETE FOSTER, 08/07/2023 15:01:19
[2023-08-07 13:54] VITALS: BMI 24.2
[2023-08-07 13:55] VITALS: BP 153/99; PULSE 60; RESP 15; TEMP 36.4; O2SAT 98; BMI 24.2
[2023-08-07 13:56] VITALS: PULSE 63; O2SAT 97
--- NOTE | 2023-08-07 14:02 | XR_ITS ---
FINAL REPORT CLINICAL HISTORY: chest pain FINDINGS: SINGLE-VIEW CHEST The heart size is normal. The mediastinum is normal. The lungs are clear. There is no pneumothorax. IMPRESSION: No acute cardiopulmonary process. Reviewed, Interpreted and Dictated by John Pope III, MD Transcribed by Krysta Ortega Authenticated and . [facility]
--- NOTE | 2023-08-07 14:04 | PC.NURSE ---
DR FOSTER AT BEDSIDE
--- NOTE | 2023-08-07 14:10 | [facility].EDCP ---
Discharge Plan Disposition Patient Disposition: Home, Self-Care Chief Complaint: Chest Pain Prescriptions Prescriptions: No Action spironolactone [Aldactone] 25 mg tablet 25 mg PO DAILY Qty: 90 2RF atorvastatin 80 mg tablet 80 mg PO HS Qty: 90 1RF Hold Instructions: Home Medication placed on hold at Doctor's office Jardiance 10 mg tablet See Rx Instructions .ROUTE .COMPLEX Qty: 30 2RF Dose Instruction: TAKE ONE TABLET BY MOUTH EVERY DAY Rx Instructions: TAKE ONE TABLET BY MOUTH EVERY DAY pantoprazole 40 mg tablet,delayed release (DR/EC) See Rx Instructions .ROUTE .COMPLEX Qty: 90 1RF Dose Instruction: TAKE ONE TABLET BY MOUTH EVERY DAY FOR gerd Rx Instructions: TAKE ONE TABLET BY MOUTH EVERY DAY FOR gerd Entresto 49-51 mg tablet 1 tab PO BID Qty: 180 1RF carvedilol 6.25 mg tablet 6.25 mg PO BID Qty: 60 2RF Rx Instructions: must administer with a meal/food prasugrel [Effient] 10 mg tablet 10 mg PO DAILY 30 Days Qty: 30 3RF aspirin 81 mg tablet,delayed release (DR/EC) 81 mg PO DAILY Referrals Follow up/Referrals: Provider,Referral, MD [Referring] - See instructions Activity Restrictions/Add. Instructions Additional Instructions/Restrictions: Follow-up with cardiology regarding this visit to the emergency department. Call your family doctor to establish care for this visit to the emergency department and schedule follow-up within 48 hours to ensure improvement. If you have any worsening of your condition or any other concerning signs or symptoms, return to the emergency department or your primary care doctor for further evaluation. Clinical Impressions Clinical Impression: Chest pain Discharge ED Provider: Bereket Carr [facility] General Chief Complaint: Chest Pain Stated Complaint: Chest Pain Time Seen by Provider: 08/07/23 14:00 Mode of Arrival: Ambulatory Source of Information: Patient Limitations: No Limitations Description of Symptoms (Recalled from ER Triage Doc. by RN): pt presents to ED with c/o left sided chest pain. pt reports pain ongoing for the past 3 days intermittent. pt does have 4 stents and does take a blood thinner. pt reports he does not know the name of the medication. pt reports that he called his pcp and was told to come in. pt reports pain does not radiate or move. History of Present Illness HPI narrative: Is a 43-year-old male with history of anxiety, ACS status post stenting currently taking aspirin presenting with chest pain. Patient states that the chest pain has been going on for the past 2 or 3 days. It is left-sided, described as more of a pressure with intermittent stabbing. Not made better or worse by anything in particular, states he feels that it is more prominent when he is laying down to go to sleep. Does not appear to be positional, has not woken him up from sleep, no shortness of breath, diaphoresis, nausea, vomiting, neurologic deficits. The pain does not radiate. Came in for further evaluation given history. Please note that above description of symptoms, in this electronic medical record under categorization of recalled from ER triage doctor by RN are reflective of an initial nursing assessment, however, is not reflective of my full history and physical exam that was personally taken and clarified. Consequentially, this preceding description of symptoms, which may include the patient's categorized chief complaint in the EMR, do not reflect my personal clinical impression, and the ultimate description of history of present illness and patient stated complaints should be deferred to this section of the note. Unless stated otherwise or congruent with this section of the note, additional signs, symptoms, or incongruence should be interpreted as inaccurate with my clinical impression. Related Data Home Medications Medication Instructions Recorded Confirmed aspirin 81 mg tablet,delayed 81 mg PO DAILY [facility] 02/27/23 07/24/23 release Previous Rx's Medication Instructions Recorded spironolactone 25 mg tablet 25 mg PO DAILY #90 tabs 03/06/23 (Aldactone) atorvastatin 80 mg tablet 80 mg PO HS #90 tabs 04/01/23 empagliflozin 10 mg tablet See Rx Instructions .Route 05/27/23 (Jardiance) .COMPLEX #30 tabs pantoprazole 40 mg tablet,delayed See Rx Instructions .Route 06/17/23 release .COMPLEX #90 tabs sacubitril 49 mg-valsartan 51 mg 1 tab PO BID #180 tabs 06/24/23 tablet (Entresto) carvedilol 6.25 mg tablet 6.25 mg PO BID #60 tabs 06/26/23 prasugrel 10 mg tablet (Effient) 10 mg PO DAILY 30 days #30 tabs 07/08/23 Allergies Allergy/AdvReac Type Severity Reaction Status Date / Time codeine AdvReac Verified 07/17/23 13:04 isosorbide AdvReac headache Verified 07/17/23 13:04 morphine AdvReac Verified 07/17/23 13:04 PFSH PFS Disclaimer: The information contained in this section may have been updated after the patient was seen, as this information can be updated by other users. Medical History STEMI (ST elevation myocardial infarction) Chest pain Anxiety Angina pectoris Snoring Difficulty sleeping Fatigue Typical angina Abnormal result of cardiovascular function study Chest pain Gastroesophageal reflux disease Dyspnea Renal lesion Elevated lipase Atypical chest pain Vasovagal syncope Dizziness Angina pectoris HLD (hyperlipidemia) Chest pain CAD (coronary artery disease) Cardiomyopathy Systolic heart failure Tobacco use Low cardiac output syndrome LVH (left ventricular hypertrophy) COVID-19 Left elbow pain STEMI (ST elevation myocardial infarction) Exposure to COVID-19 virus Headache Left arm numbness Foot contusion Surgical History History of heart artery stent H/O cardiac catheterization Family History Father Family history of myocardial infarction Grandfather Family history of myocardial infarction Grandmother Family history of myocardial infarction Other Family history of hyperlipidemia Family history of hypertension Family history of stroke Social History Smoking Status: Current every day smoker alcohol intake: never substance use type: marijuana current occupational status: employed and unemployed Travel in the last 8 weeks: None household members: family housing: house marital status: single current occupation: [employer] current occupational exposures/hazards: No caffeine: Yes ROS Obtained: Yes All systems reviewed & no additional complaints except as documented Physical Exam General General appearance: alert Neck Neck exam: Present trachea midline Chest Chest inspection: Present normal inspection and symmetric chest wall rise Respiratory Respiratory exam: Present normal lung sounds bilaterally; Absent respiratory distress, wheezes, stridor, accessory muscle use or prolonged expiratory phase Cardiovascular Cardiovascular exam: Present regular rate, normal rhythm and normal heart sounds; Absent systolic murmur Extremities Exam Extremities exam: Absent edema Neurological Exam Neurological exam: Present alert, oriented X3 and CN II-XII intact Skin Skin exam: Present warm and dry; Absent cyanosis, diaphoresis or pallor HEART Score HEART Score HEART Score assessment performed?: No Critical Care Critical Care Time Critical Care Time: No Medical Decision Making Medical Records Medical records reviewed: Yes I reviewed the patient's medical records. Scott Inquiry Pt receiving controlled substance: No Scott was queried for this patient: No Vital Signs Vital Signs: 08/07/23 13:55 08/07/23 13:56 08/07/23 14:15 Temperature 97.6 F Temperature Source Oral Pulse Rate 63 59 L Pulse Rate [Left Radial] 60 Respiratory Rate 15 19 Blood Pressure [Right Arm] 153/99 H Blood Pressure Mean [Right Arm] 117 02 Sat by Pulse Oximetry 98 97 97 Oxygen Delivery Method Room Air Lab Data Labs: Lab Results 08/07/23 13:55: WBC 6.4, RBC 5.57, Hgb 16.8, Hct 51.2, MCV 91.9, MCH 30.1, MCHC 32.8, RDW 13.2, Plt Count 247, MPV 8.4, Neut % (Auto) 64.5, Lymph % (Auto) 27.2, Clark % (Auto) 7.2, Eos % (Auto) 1.1, Baso % (Auto) 5.1 H, Neut # (Auto) 4.1, Lymph # (Auto) 1.7, Clark # (Auto) 0.5, Eos # (Auto) 0.1, Baso # (Auto) 0.3 H, Sodium 139, Potassium 3.9, Chloride 103, Carbon Dioxide 29, Anion Gap 10.9, BUN 12, Creatinine 0.90, Estimated Creat Clear 102, Estimated GFR 92, Est GFR ( Amer) 111, Glucose 111 H, Calcium 9.8, Total Bilirubin 0.9, AST 52, ALT 60, Alkaline Phosphatase 86, Troponin I < 0.01, Total Protein 7.8, Albumin 5.0, Globulin 2.8, Albumin/Globulin Ratio 1.8 08/07/23 13:55 08/07/23 13:55 Response Orders (Tests/Meds): ED MEDICATIONS Generic Name Dose Route Start Last Admin Trade Name Freq PRN Reason Stop Dose Admin Sodium Chloride 10 ml 08/07/23 13:56 Sodium Chloride 0.9% 10ml Flush Syringe IV 09/06/23 13:55 NEEDED PRN Maintain IV Site Discontinued Medications Generic Name Dose Route Start Last Admin Trade Name Freq PRN Reason Stop Dose Admin Aspirin 243 mg 08/07/23 14:04 08/07/23 14:11 Aspirin 81mg Chewable Tablet PO 08/07/23 14:05 243 mg ONCE ONE Administration ORDERS Category Date Time Status CXR --portable [XR chest portable] Stat Exams 08/07/23 14:02 Taken Complete Blood Count Auto Diff Stat Lab 08/07/23 13:55 Completed Comprehensive Metabolic Panel Stat Lab 08/07/23 13:55 Received Troponin I Q3H Lab 08/07/23 17:15 Ordered Troponin I Q3H Lab 08/07/23 20:15 Ordered Troponin I Stat Lab 08/07/23 13:55 Received MDM Narrative Medical Decision Narrative: Is a 43-year-old male with history of anxiety, ACS status post stenting currently taking aspirin presenting with chest pain. Patient states that the chest pain has been going on for the past 2 or 3 days. It is left-sided, described as more of a pressure with intermittent stabbing. Not made better or worse by anything in particular, states he feels that it is more prominent when he is laying down to go to sleep. Does not appear to be positional, has not woken him up from sleep, no shortness of breath, diaphoresis, nausea, vomiting, neurologic deficits. The pain does not radiate. Came in for further evaluation given history. History obtained patient. On arrival, patient hemodynamically stable, alert, oriented, hemodynamically stable. Mildly hypertensive, lungs are clear to auscultation bilaterally, anterior and posterior. Cardiac exam normal. No lower extremity edema. Pulses are equal and symmetric, neurologically intact. Differential includes microvascular coronary artery disease, CHF, ACS, GA, coronary artery dissection, pneumothorax, PE, dissection, pericarditis, myocarditis, pneumothorax, aortic aneurysm, pneumonia, bronchitis, among others. Patient given 324 mg aspirin here in the emergency department. EKG demonstrated sinus bradycardia [address] or T wave changes concerning for acute ischemia on independent interpretation. MD, QRS, QT intervals within normal limits. Good R wave progression in precordial leads. Independent rotation workup demonstrates nonactionable CBC or chemistry. Chest x-ray without acute cardiopulmonary airspace disease. See radiology report for final read. Heart score 1. Likely related to anxiety. Because of patient's pain going on for 2 days, negative initial workup, no further workup deemed necessary at this time. Because patient at baseline without signs or symptoms of clinical decompensation, deemed appropriate for discharge. Results were relayed to patient who voiced understanding and were agreeable to outpatient management and follow up. I discussed my clinical impression with patient and answered all questions. At this time, the evidence for any other entities in the differential is insufficient to warrant any further testing or ED observation. This was explained as well. Advisory was given that persistent or worsening symptoms require further evaluation. I confirmed the understanding of this discussion.
[2023-08-07] MEDS: ASPIRIN 81MG CHEWABLE TABLET 243 MG PO (14:11)
[2023-08-07 14:15] VITALS: PULSE 59; RESP 19; O2SAT 97
--- NOTE | 2023-08-07 14:18 | PC.NURSE ---
XR AT BEDSIDE
--- NOTE | 2023-08-07 14:35 | PC.NURSE ---
Rounded on pt to see if they had any needs. No Needs at this time
[2023-08-07 14:42] LABS: Alanine Aminotransferase 60 U/L (12-78); Albumin/Globulin Ratio 1.8 (1.1-1.8); Alkaline Phosphatase 86 U/L (38-126); Anion Gap 10.9 mEq/L (5-15); Aspartate Amino Transferase 52 U/L (17-59); Bilirubin,Total 0.9 mg/dl (0.2-1.3); Blood Urea Nitrogen 12 mg/dl (9-20); Calcium 9.8 mg/dl (8.4-10.2); Carbon Dioxide 29 mmol/L (22.0-30.0); Chloride 103 mmol/L (98-107); Creatinine Clearance Estimated 102 mL/min (50-200); Estimated Glomerular Filt Rate 92 ml/min (>60); GFR (African American) 111 ML/MIN (>60); Globulin 2.8 g/dL (1.3-3.2); Glucose 111 mg/dl (74-100); Potassium 3.9 mmoL/L (3.5-5.1); Sodium 139 mmol/L (136-145); Total Protein,Serum 7.8 g/dl (6.3-8.2)
[2023-08-07 14:59] LABS: Troponin I < 0.01 ng/ml (0.00-0.034)
[2023-08-07 15:00] LABS: Basophils # 0.3 K/mm3 (0-0.2); Basophils % 5.1 % (0.1-2.0); Eosinophils # 0.1 K/mm3 (0.0-0.4); Eosinophils % 1.1 % (0.1-12.0); Hematocrit 51.2 % (42.0-52.0); Hemoglobin 16.8 g/dL (14.1-18.0); Lymphocytes # 1.7 K/mm3 (0.7-4.5); Lymphocytes % 27.2 % (10-50); Mean Corpuscular HGB Conc 32.8 g/dL (31.8-35.4); Mean Corpuscular Hemoglobin 30.1 pg (27.0-31.2); Mean Corpuscular Volume 91.9 fl (80-94); Mean Platelet Volume 8.4 fl (7.4-10.4); Monocytes # 0.5 K/mm3 (0.1-1.0); Monocytes % 7.2 % (1.7-9.3); Neutrophils # 4.1 K/mm3 (1.8-7.8); Neutrophils % 64.5 % (37.0-80.0); Platelet Count 247 K/mm3 (142-424); Red Blood Count 5.57 M/mm3 (4.60-6.20); Red Cell Distribution Width 13.2 % (11.5-17.5); White Blood Count 6.4 K/mm3 (4.8-10.8)
--- NOTE | 2023-08-07 15:12 | PC.NURSE ---
DR FOSTER AT BEDSIDE TO UPDATE PT AND FAMILY
[2023-08-07 15:15] VITALS: BP 120/79; PULSE 60; RESP 18; TEMP 36.6; O2SAT 97
== END 2023-08-07 15:15 | disposition home or self-care (01) ==
PROVIDERS: Emergency Provider Emergency Medicine; PCP Nurse Practitioner Family
DX: R07.9 Chest pain, unspecified (principal); R00.1 Bradycardia, unspecified; F17.210 Nicotine dependence, cigarettes, uncomplicated; I11.0 Hypertensive heart disease with heart failure; I25.119 Atherosclerotic heart disease of native coronary artery with unspecified angina pectoris; I50.20 Unspecified systolic (congestive) heart failure; K21.9 Gastro-esophageal reflux disease without esophagitis; E78.5 Hyperlipidemia, unspecified; Z95.5 Presence of coronary angioplasty implant and graft
CPT/HCPCS: 71045; 80053; 84484; 85025; 93005; 99284

== ENCOUNTER 2023-08-07 16:20 | Outpatient (CLI) | payer MEDICAID, SELFPAY ==
[2023-08-07 17:14] LABS: Troponin I < 0.01 ng/ml (0.00-0.034)
== END 2023-08-07 23:59 ==
LOC: LAB 16:21
PROVIDERS: PCP Nurse Practitioner Family; Visit Provider Internal Medicine
DX: I20.89 Other forms of angina pectoris (principal); I50.20 Unspecified systolic (congestive) heart failure; E78.5 Hyperlipidemia, unspecified; I10 Essential (primary) hypertension
CPT/HCPCS: 36415; 84484

== ENCOUNTER 2023-08-13 06:26 | Outpatient (CLI) | payer MEDICAID, SELFPAY ==
--- NOTE | 2023-08-13 06:31 | NM_ITS ---
APPROVED REPORT Exam: Nuclear Stress Test Indication: Chest pain, HTN, High cholesterol, Family history Patient Location: Outpatient Stress Tech: Mariana Cardona HI Tech:Shanti Lyle, ARRT, RT (R)(N) Ht: 5 ft 6 in Wt: 152 lbs HR: 74 bpm BP: 123/82 mmHg BSA: 1.78 m2 TID: 0.97 BMI: 24.5 History: Chest pain, HTN, High cholesterol, Family history Procedure: Patient received 0.4 mg of intravenous Lexiscan, resting heart rate 74 bpm, resting blood pressure 123/82 mmHg, with Lexiscan maximum heart rate achieved was 146 bpm which is % of the maximum predicted heart rate and blood pressure was 137/89 mmHg. With Lexiscan, patient denied any complaint of chest pain. Cardiac Stress and Resting SPECT Images: Cardiac Stress and Resting SPECT images were obtained using technetium 99m Myoview 32.9 mCi stress and 10.01 mCi at rest. Resting and stress imaging in supine and prone positions demonstrate a medium sized, mild, reversible perfusion defect in the distal anterior LV wall towards the LV apex. Gated imaging demonstrates normal global and regional LV systolic function. LVEF is calculated at 59%. Conclusion: Medium sized, mild, reversible perfusion defect in the distal anterior LV wall towards the LV apex. Findings are suggestive of reversible ischemia. Gated imaging demonstrates normal global and regional LV systolic function. LVEF is calculated at 59%. Electronically signed by : Susanna Barry MD 08/14/2023 13:17:24
[2023-08-13] MEDS: SODIUM CHLORIDE 0.9% 10ML SYR (RAD ONLY) 10 ML IV ×2 (08:50)
[2023-08-13] MEDS: REGADENOSON 0.4MG/5ML SYRINGE 0.400000000000000022 MG IV (08:50)
[2023-08-13] MEDS: ISOTOPE MYOVIEW (PER STUDY) 1 DOSE IV (08:50)
--- NOTE | 2023-08-13 09:27 | CA_ITS ---
APPROVED REPORT Exam: Pharmacologic Technologist: Mariana Mcnamara, Ht: 5 ft 6 in Wt: 151 lbs BSA: 1.77 m2 HR: 75 bpm BP: 123/82 mmHg Rhythm: NSR Medical History Medications: Aspirin,,,,, Pantoprazole,,,,, Atorvastatin,,,,, Carvedilol,,,,, Aldactone,,,,, Effient,,,,, JaRDiance,,,,, EnTRESTO,,,,, Stress Test Details Test: LEXISCAN Reason for pharmacologic stress test: changed from exercise stress test due to inability to reach target heart rate. HR Resting HR: 74 bpm Max Heart Rate (APMHR): 177 bpm Max HR Achieved: 146 bpm Target HR (85% APMHR): 150 bpm % of APMHR: 82 Recovery HR: 102 bpm BP Resting BP: 123.0/82.0 mmHg Max BP: 137.0/89.0 mmHg Recovery BP: 122.0/83.0 mmHg ECG Resting ECG: sinus arrhythmias, cannot R/O old anterior OH Stress ECG: No significant ST changes Arrhythmia: None Clinical Exercise duration: 04:00 min Highest Stage Achieved: Exercise capacity: 1.0 METs Stress ECG Conclusion Symptoms: Mild SOA, head discomfort, nausea, vomiting. No CP. Arrhythmias/Ectopy: None ST-T Changes: No significant ST changes Conclusion: Unremarkable Lexiscan stress. Myoview images reported separately. Test Summary REST . . . . . . . Resting REST 01:22 . . 74 . 123/ 82 . . Stage 1 01:00 . . 109 . . . . Stage 2 01:00 . . 125 . 137/ 89 . . Stage 3 01:00 . . 126 . . . . Stage 4 01:00 . . 122 . . . Stop exercise at 04:00 RECOVERY 01:00 . . 115 . 127/ 87 . . RECOVERY 02:00 . . 107 . 127/ 87 . . RECOVERY 03:00 . . 102 . 122/ 83 . . RECOVERY 03:19 . . 101 . 122/ 83 . . Electronically signed by : Susanna Barry MD 08/14/2023 13:15:48
== END 2023-08-13 23:59 ==
LOC: RAD 06:27
PROVIDERS: PCP Nurse Practitioner Family; Visit Provider Internal Medicine
DX: I20.89 Other forms of angina pectoris (principal); I50.20 Unspecified systolic (congestive) heart failure; I10 Essential (primary) hypertension; E78.5 Hyperlipidemia, unspecified
CPT/HCPCS: 78452; 93017; 93018; A9502; J2785

== ENCOUNTER 2023-09-18 07:31 | Day surgery (SDC) | payer MEDICAID, SELFPAY ==
[2023-09-18] VITALS (17 sets, daily range): BP systolic 95–123; BP diastolic 56–82; PULSE 49–75; RESP 16–18; TEMP 36.8; O2SAT 94–98; BMI 24.5
--- NOTE | 2023-09-18 07:07 | IR_ITS ---
APPROVED REPORT Patient Location: Outpatient PROCEDURES Left heart catheterization Left ventriculogram Selective coronary angiogram INDICATION Known coronary artery disease, Accelerated angina pectoris Informed consent was obtained prior to the procedure. COMPLICATIONS NONE Estimated Blood Loss: LESS THAN 10 ML TECHNIQUE One percent lidocaine used to anesthetize the right anterior aspect of the wrist. The right radial artery was accessed via the Seldinger technique. A 6 [place] sheath was placed in the right radial artery. 2.5 mg of Verapamil, 800 mcg of nitroglycerin, 1mg Lidocaine and 5000 U Heparin were given through the arterial sheath. The papa catheter was also used to perform left heart catheterization, left ventriculogram and selective coronary angiogram. At the end of the procedure the sheath was removed good hemostasis was achieved using Traclet band, patient was transferred to the postop holding area in stable condition. ANGIOGRAPHIC RESULTS The left main artery Has a stent in its mid segment which extends into the LAD. The stent is widely patent free of in-stent restenosis with excellent proximal distal transitioning The left anterior descending artery Has a stent originating from the left main artery which is widely patent throughout the proximal segment. There is excellent distal transitioning just proximal to a large first diagonal artery. The remaining LAD is widely patent as is the first diagonal artery The circumflex artery Is dominant and has an ostial 20% followed by an additional proximal 20% stenosis with remaining vessel widely patent The right coronary artery Small nondominant with proximal 40% stenosis The [place] ventriculogram reveals Preserved at 55 to 60% The left ventricular end-diastolic pressure 15 mmHg IMPRESSION Coronary disease as described above Preserved ejection fraction Borderline LVEDP PLAN 1. Continue medical management 2. Maximize antianginal medication Electronically signed by : Kashif Jurado MD 09/18/2023 13:28:57
[2023-09-18 07:50] LABS: MANUAL DIFFERENTIAL MANUAL DIFFERENTIAL (MANUAL DIFF)
[2023-09-18 07:59] LABS: Basophils # 0.2 K/mm3 (0-0.2); Basophils % 3.2 % (0.1-2.0); Eosinophils # 0.2 K/mm3 (0.0-0.4); Eosinophils % 2.6 % (0.1-12.0); Hematocrit 45.8 % (42.0-52.0); Hemoglobin 15.2 g/dL (14.1-18.0); Lymphocytes # 1.9 K/mm3 (0.7-4.5); Lymphocytes % 31.9 % (10-50); Mean Corpuscular HGB Conc 33.1 g/dL (31.8-35.4); Mean Corpuscular Hemoglobin 30.6 pg (27.0-31.2); Mean Corpuscular Volume 92.2 fl (80-94); Mean Platelet Volume 8.2 fl (7.4-10.4); Monocytes # 0.4 K/mm3 (0.1-1.0); Monocytes % 6.6 % (1.7-9.3); Neutrophils # 3.3 K/mm3 (1.8-7.8); Neutrophils % 55.6 % (37.0-80.0); Platelet Count 231 K/mm3 (142-424); Red Blood Count 4.96 M/mm3 (4.60-6.20); Red Cell Distribution Width 13.8 % (11.5-17.5)
[2023-09-18 08:23] LABS: Eosinophils % 2 % (0-3); Lymphocytes % 35 % (10-50); Monocytes % 8 % (2-9); Neutrophils % 55 % (42-76); Total Cells Counted 100
[2023-09-18 08:24] LABS: Platelet Estimate Normal; RBC Morphology Normal
[2023-09-18] MEDS: ASPIRIN 81MG CHEWABLE TABLET 81 MG PO (08:52)
[2023-09-18] MEDS: PRASUGREL 10MG TAB 10 MG PO (08:52)
[2023-09-18 09:28] LABS: Alanine Aminotransferase 50 U/L (12-78); Albumin/Globulin Ratio 1.6 (1.1-1.8); Alkaline Phosphatase 82 U/L (38-126); Anion Gap 11.7 mEq/L (5-15); Aspartate Amino Transferase 45 U/L (17-59); Bilirubin,Total 0.5 mg/dl (0.2-1.3); Blood Urea Nitrogen 9 mg/dl (9-20); Calcium 9.1 mg/dl (8.4-10.2); Carbon Dioxide 26 mmol/L (22.0-30.0); Chloride 106 mmol/L (98-107); Creatinine Clearance Estimated 103 mL/min (50-200); Estimated Glomerular Filt Rate 92 ml/min (>60); GFR (African American) 111 ML/MIN (>60); Globulin 2.5 g/dL (1.3-3.2); Glucose 105 mg/dl (74-100); Potassium 3.7 mmoL/L (3.5-5.1); Sodium 140 mmol/L (136-145); Total Protein,Serum 6.5 g/dl (6.3-8.2)
[2023-09-18] MEDS: HEPARIN 1,000 UNITS/500ML NS (CATH LAB) 3000 UNIT IV (10:34)
[2023-09-18] MEDS: 0.9 % SODIUM CHLORIDE 500 ML 25 ML IV (10:34)
[2023-09-18] MEDS: LIDOCAINE 1% 10ML MDV 20 ML IJ (10:45)
[2023-09-18] MEDS: MIDAZOLAM HCL 1MG/1ML 5ML VIAL 1 MG IV (11:12)
[2023-09-18] MEDS: FENTANYL 100MCG/2ML VIAL 50 MCG IV (11:12)
[2023-09-18] MEDS: IOPAMIDOL-370 (76%);100ML BOTTLE 40 ML IV (13:51)
== END 2023-09-18 14:36 | disposition home or self-care (01) ==
PROVIDERS: PCP Nurse Practitioner Family; Visit Provider Internal Medicine
DX: I25.118 Atherosclerotic heart disease of native coronary artery with other forms of angina pectoris (principal); R93.1 Abnormal findings on diagnostic imaging of heart and coronary circulation; F17.210 Nicotine dependence, cigarettes, uncomplicated; Z79.899 Other long term (current) drug therapy; Z95.5 Presence of coronary angioplasty implant and graft; I25.2 Old myocardial infarction; Z82.49 Family history of ischemic heart disease and other diseases of the circulatory system; I50.20 Unspecified systolic (congestive) heart failure; I11.0 Hypertensive heart disease with heart failure; I25.5 Ischemic cardiomyopathy
CPT/HCPCS: 36415; 80053; 85007; 85014; 85018; 85048; 85049; 93458; 99152; C1725; C1769; J1644; Q9967

== ENCOUNTER 2023-10-16 23:30 | Emergency (ER) | payer MEDICAID, SELFPAY ==
[2023-10-16 23:30] VITALS: BP 134/93; PULSE 74; RESP 12; TEMP 36.8; O2SAT 98; BMI 27.4
--- NOTE | 2023-10-16 23:31 | XR_ITS ---
PROCEDURE INFORMATION: Exam: XR Chest Exam date and time: 10/16/2023 11:41 PM Age: 43 years old Clinical indication: Other: AMS TECHNIQUE: Imaging protocol: Radiologic exam of the chest. Views: 1 view. COMPARISON: CR XR CHEST PORTABLE 08/07/2023 2:14 PM FINDINGS: Lungs: No consolidation. Minimal left lower lobe atelectasis. Pleural spaces: No pleural effusion. No pneumothorax. Heart/Mediastinum: No cardiomegaly. Bones/joints: Unremarkable. IMPRESSION: No acute pulmonary findings.
--- NOTE | 2023-10-16 23:31 | CT_ITS ---
PROCEDURE INFORMATION: Exam: CT Head Without Contrast Exam date and time: 10/16/2023 11:51 PM Age: 43 years old Clinical indication: Altered mental status/memory loss; Additional info: AMS TECHNIQUE: Imaging protocol: Computed tomography of the head without contrast. Radiation optimization: All CT scans at this facility use at least one of these dose optimization techniques: automated exposure control; mA and/or kV adjustment per patient size (includes targeted exams where dose is matched to clinical indication); or iterative reconstruction. COMPARISON: CT ANGIO HEAD 04/06/2020 4:27 PM FINDINGS: Brain: Suggestion of a small right parafalcine acute subdural hematoma measuring 3 mm in thickness. No midline shift or mass effect. Cerebral ventricles: No ventriculomegaly. Paranasal sinuses: Bubbly opacities within a posterior left ethmoid air cell suggestive of acute sinusitis. Minimal right maxillary and right sphenoid sinus mucosal thickening. Mastoid air cells: Visualized mastoid air cells are well aerated. Bones: Unremarkable. No acute fracture. Soft tissues: Unremarkable. IMPRESSION: Suggestion of a small right parafalcine acute subdural hematoma measuring 3 mm in thickness. No midline shift or mass effect.
--- NOTE | 2023-10-16 23:43 | HMH.EDGENADL ---
Discharge Plan Disposition Patient Disposition: Xfer Short-Term Hosp Chief Complaint: Altered Mental Status Prescriptions Prescriptions: No Action spironolactone [Aldactone] 25 mg tablet 25 mg PO DAILY Qty: 90 2RF levocetirizine [Xyzal] 5 mg tablet 5 mg PO HS Qty: 90 3RF pantoprazole 40 mg tablet,delayed release (DR/EC) See Rx Instructions .ROUTE .COMPLEX Qty: 90 1RF Dose Instruction: TAKE ONE TABLET BY MOUTH EVERY DAY FOR gerd Rx Instructions: TAKE ONE TABLET BY MOUTH EVERY DAY FOR gerd Entresto 49-51 mg tablet 1 tab PO BID Qty: 180 1RF prasugrel [Effient] 10 mg tablet 10 mg PO DAILY 30 Days Qty: 30 3RF Jardiance 10 mg tablet See Rx Instructions .ROUTE .COMPLEX Qty: 90 1RF Dose Instruction: TAKE ONE TABLET BY MOUTH EVERY DAY Rx Instructions: TAKE ONE TABLET BY MOUTH EVERY DAY atorvastatin 80 mg tablet See Rx Instructions .ROUTE .COMPLEX Qty: 90 3RF Hold Instructions: Home Medication placed on hold at Doctor's office Dose Instruction: TAKE ONE TABLET BY MOUTH EVERY DAY AT BEDTIME Rx Instructions: TAKE ONE TABLET BY MOUTH EVERY DAY AT BEDTIME aspirin 81 mg tablet,delayed release (DR/EC) See Rx Instructions .ROUTE .COMPLEX Qty: 90 3RF Dose Instruction: TAKE ONE TABLET BY MOUTH EVERY DAY FOR heart disease Rx Instructions: TAKE ONE TABLET BY MOUTH EVERY DAY FOR heart disease carvedilol 6.25 mg tablet See Rx Instructions .ROUTE .COMPLEX Qty: 180 3RF Dose Instruction: TAKE ONE TABLET BY MOUTH TWICE DAILY --TAKE WITH A MEAL/FOOD-- Rx Instructions: TAKE ONE TABLET BY MOUTH TWICE DAILY --TAKE WITH A MEAL/FOOD-- Referrals Follow up/Referrals: Provider,Referral, MD [Primary Care Provider] - See instructions Clinical Impressions Clinical Impression: Acute subdural hematoma, Acute alteration in mental status Instructions Patient Instructions: DI for Altered Mental Status Discharge ED Provider: Rubi Lindsay Adult [facility] General Chief complaint: Altered Mental Status Stated complaint: altered level of consciousness Time Seen by Provider: 10/16/23 23:38 Mode of Arrival: EMS Source of Information: Patient and EMS Limitations: No Limitations Description of Symptoms (Recalled from ER Triage Doc. by RN): Pt presents to ED via EMS for AMS. Pt states he just feels weird. Pt states he smoked marijuana tonight but has not done any other drugs or alcohol. Pt acts confused when you ask him questions but is usually able to answer appropriately after a couple of times. History of Present Illness HPI narrative: 43-year-old male presents to the ER via EMS for altered mental status. Patient reports he just feels weird . Patient states he smoked marijuana tonight but denies any other drugs, does not believe he drink any alcohol. He is able to tell me his full name and that he is in the hospital but unable to tell me what year it is stating I do not know, my brain is not working right. Patient states he does not have any pain at this time, he reports mild dizziness but no chest pain, difficulty breathing, nausea, vomiting, diarrhea, or other symptoms. EMS states family told them the last time he behaved like this he was having a maker but their ECG tracing was unremarkable. I reviewed the ECG tracing and personally interpreted which demonstrates normal sinus rhythm, no findings of STEMI. ECG will be performed here. EMS also reports that patient was wandering on the phone when they showed up on scene, he walked directly towards them and happily got in the truck. He was not sure who he was on the phone with at that time. Patient is overall poor historian of the evening and it was unclear what may have preceded his presentation. Related Data Previous Rx's Medication Instructions Recorded spironolactone 25 mg tablet 25 mg PO DAILY #90 tabs 03/06/23 (Aldactone) pantoprazole 40 mg tablet,delayed See Rx Instructions .Route 06/17/23 release .COMPLEX #90 tabs sacubitril 49 mg-valsartan 51 mg 1 tab PO BID #180 tabs 06/24/23 tablet (Entresto) prasugrel 10 mg tablet (Effient) 10 mg PO DAILY 30 days #30 tabs 07/08/23 empagliflozin 10 mg tablet See Rx Instructions .Route 08/29/23 (Jardiance) .COMPLEX #90 tabs levocetirizine 5 mg tablet (Xyzal) 5 mg PO HS #90 tabs 09/01/23 aspirin 81 mg tablet,delayed See Rx Instructions .Route 09/23/23 release .COMPLEX #90 tabs atorvastatin 80 mg tablet See Rx Instructions .Route 09/23/23 .COMPLEX #90 tabs carvedilol 6.25 mg tablet See Rx Instructions .Route 09/25/23 .COMPLEX #180 tabs Allergies Allergy/AdvReac Type Severity Reaction Status Date / Time codeine AdvReac Verified 09/30/23 13:50 isosorbide AdvReac headache Verified 09/30/23 13:50 morphine AdvReac Verified 09/30/23 13:50 ranolazine AdvReac Mild depression Uncoded 09/30/23 13:50 [facility] Disclaimer: The information contained in this section may have been updated after the patient was seen, as this information can be updated by other users. Medical History Abnormal findings on diagnostic imaging of heart and coronary circulation Illness STEMI (ST elevation myocardial infarction) Chest pain Anxiety Angina pectoris Snoring Difficulty sleeping Fatigue Typical angina Abnormal result of cardiovascular function study Chest pain Gastroesophageal reflux disease Dyspnea Renal lesion Elevated lipase Atypical chest pain Vasovagal syncope Dizziness Angina pectoris HLD (hyperlipidemia) Chest pain CAD (coronary artery disease) Cardiomyopathy Systolic heart failure Tobacco use Low cardiac output syndrome LVH (left ventricular hypertrophy) COVID-19 Left elbow pain STEMI (ST elevation myocardial infarction) Exposure to COVID-19 virus Headache Left arm numbness Foot contusion Surgical History History of heart artery stent H/O cardiac catheterization Family History Father Family history of myocardial infarction Grandfather Family history of myocardial infarction Grandmother Family history of myocardial infarction Other Family history of hyperlipidemia Family history of hypertension Family history of stroke Social History Smoking Status: Current every day smoker alcohol intake: never substance use type: marijuana current occupational status: employed and unemployed Travel in the last 8 weeks: None household members: family housing: house marital status: single current occupation: [employer] current occupational exposures/hazards: No caffeine: Yes ROS Obtained: Yes All systems reviewed & no additional complaints except as documented Constitutional Constitutional: Denies chills, Denies fever(s), Denies headache(s), Denies weakness and Reports other (Generally feels weird ) Eyes Eyes: Denies change in vision ENT Ears, Nose, Mouth, and Throat: Reports dizziness (Reported to feel lightheaded, no room spinning), Denies headache(s), Denies nasal congestion and Denies sore throat Cardiovascular Cardiovascular: Denies chest pain, Denies dyspnea and Denies leg edema Respiratory Respiratory: Denies cough and Denies dyspnea Gastrointestinal Gastrointestingal: Denies constipation, diarrhea, nausea or vomiting Genitourinary Male Genitourinary: Denies difficulty urinating Musculoskeletal Musculoskeletal: Denies arthralgias, Denies myalgias, Denies numbness and Denies tingling Integumentary/Breasts Skin/Breast: Denies change in pigmentation Neurologic Neurologic: Reports dizziness (Reported to feel lightheaded, no room spinning), Denies headache(s), Denies numbness, Denies tingling and Denies weakness Physical Exam General General appearance: alert and in no apparent distress Head Head exam: atraumatic and normocephalic Eye Eye exam: Present PERRL (3 mm, reactive), EOMI and other (No nystagmus) ENT ENT exam: Present mucous membranes moist Neck Neck exam: Present normal inspection and full ROM; Absent tenderness Chest Chest inspection: Present normal inspection and symmetric chest wall rise Respiratory Respiratory exam: Present normal lung sounds bilaterally; Absent respiratory distress, wheezes or stridor Cardiovascular Cardiovascular exam: Present regular rate and normal rhythm Abdominal Exam Abdominal exam: Present soft; Absent distention, tenderness, guarding or rebound Extremities Exam Extremities exam: Present full ROM; Absent tenderness or edema Back Exam Back exam: Present normal inspection and full ROM Neurological Exam Neurological exam: Present alert, CN II-XII intact, normal gait and other (Normal finger-nose and [id number], no visual field deficits, no facial droop); Absent oriented X3 (Oriented to self and location, disoriented to year stating I cannot think right now ) or motor sensory deficit (5 out of 5 strength in all extremities, no neurologic deficits appreciated on exam) Psychiatric Psychiatric exam: Present normal affect and normal mood Skin Skin exam: Present warm and dry Medical Decision Making Scott Inquiry Pt receiving controlled substance: No Vital Signs: 10/16/23 23:30 10/17/23 00:30 10/17/23 01:00 Temperature 98.2 F Temperature Source Oral Pulse Rate 71 74 Pulse Rate [Left] 74 Respiratory Rate 12 12 18 Blood Pressure 114/76 106/61 L Blood Pressure [Right Arm] 134/93 H Blood Pressure Mean 76 Blood Pressure Mean [Right Arm] 106 02 Sat by Pulse Oximetry 98 96 96 Oxygen Delivery Method Room Air 10/17/23 01:30 Temperature Temperature Source Pulse Rate 73 Pulse Rate [Left] Respiratory Rate 16 Blood Pressure 100/60 L Blood Pressure [Right Arm] Blood Pressure Mean 69 Blood Pressure Mean [Right Arm] 02 Sat by Pulse Oximetry 95 Oxygen Delivery Method Lab Data Lab Results 10/16/23 23:15: WBC 9.6, RBC 5.12, Hgb 15.6, Hct 47.5, MCV 92.9, MCH 30.5, MCHC 32.9, RDW 13.7, Plt Count 303, MPV 8.5, Neut % (Auto) 51.9, Lymph % (Auto) 38.1, [place] % (Auto) 7.5, Eos % (Auto) 0.8, Baso % (Auto) 1.6, Neut # (Auto) 5.0, Lymph # (Auto) 3.7, [place] # (Auto) 0.7, Eos # (Auto) 0.1, Baso # (Auto) 0.2, Sodium 138, Potassium 3.5, Chloride 103, Carbon Dioxide 25, Anion Gap 13.5, BUN 16, Creatinine 1.00, Estimated Creat Clear 98, Estimated GFR 82, Est GFR ( Amer) 99, Glucose 115 H, Calcium 9.7, Total Bilirubin 0.9, AST 47, ALT 73, Alkaline Phosphatase 81, Troponin I < 0.01, Total Protein 7.6, Albumin 4.7, Globulin 2.9, Albumin/Globulin Ratio 1.6, Plasma/Serum Alcohol < 10 10/16/23 23:31: VBG pH 7.36, VBG pCO2 39.8, VBG pO2 100.8 H, VBG HCO3 21.9 L, VBG Total CO2 23.2, VBG O2 Saturation 97.9 H, VBG Base Excess -3.5 L, VBG Lactic Acid 1.8 10/16/23 23:15 10/16/23 23:15 Orders (Tests/Meds): ED MEDICATIONS Discontinued Medications Generic Name Dose Route Start Last Admin Trade Name Freq PRN Reason Stop Dose Admin Acetaminophen 1,000 mg 10/17/23 01:06 10/17/23 01:29 Acetaminophen 1,000mg/100ml Vial IV 10/17/23 01:07 1,000 mg ONCE ONE Administration Lactated Ringer's 1,000 mls @ 999 mls/hr 10/16/23 23:31 10/16/23 23:44 Lactated Ringer's 1000 Ml Bag IV 10/17/23 00:31 999 mls/hr .Q1H1M ONE Administration Ondansetron HCl 4 mg 10/17/23 01:06 10/17/23 01:29 Ondansetron 4mg/2ml Vial IV 10/17/23 01:07 4 mg ONCE ONE Administration ORDERS Category Date Time Status CT head/brain wo con Stat Cat Scan 10/16/23 23:31 Completed CXR --portable [XR chest portable] Stat Exams 10/16/23 23:31 Completed CBC w/Auto Diff [Complete Blood Count Auto Diff] Stat Lab 10/16/23 23:15 Completed CMP [Comprehensive Metabolic Panel] Stat Lab 10/16/23 23:15 Completed Ethanol [Ethyl Alcohol] Stat Lab 10/16/23 23:15 Completed Trop I [Troponin I] Stat Lab 10/16/23 23:15 Completed Troponin I Q3H Lab 10/17/23 02:45 Ordered Troponin I Q3H Lab 10/17/23 05:45 Ordered UDS [Drug Screen,Urine] Stat Lab 10/16/23 23:31 Ordered Urinalysis and Microscopic Stat Lab 10/16/23 23:31 Ordered VBG [Venous Blood Gas] Stat RT 10/16/23 23:31 Completed ECG Request Stat Y 10/16/23 23:31 Ordered HEART Score History (anamnesis): Slightly suspicious ECG: Non-specific disturbance Age: <45 years Risk factors: Atherosclerosis history Troponin: </= normal limit HEART Score: 3 Medical Decision Narrative: In summary, this 43-year-old male presents to the emergency department today with concerns of altered mental status. Social determinants of health include patient having smoked marijuana tonight, this could be complicating his altered mental status if it was tampered with. Comorbidities of current condition include history of CAD, hyperlipidemia, hypertension, all of which increases overall morbidity. On initial evaluation patient is hemodynamically stable, afebrile, oriented to self and location, disoriented to year, otherwise having difficulty recalling the events of the night as well, no findings of trauma, cardiopulmonary exam reassuring, no localizing neurologic deficits. Patient describes feeling slightly lightheaded, no nystagmus, ocular exam reassuring. Differential diagnosis includes but is not limited to intracranial bleed, intoxication, hypercarbia, lactic acidosis, electrolyte abnormality, with patient's history of CAD, I did consider ACS. Based on these concerns, I ordered broad workup to rule out the most morbid conditions. ECG personally interpreted demonstrates normal sinus rhythm, rate 67, normal axis, MN normal at 160, QTc normal at 417, no STEMI. Patient received IV fluids and Zofran for treatment. Labs personally reviewed demonstrate no leukocytosis or anemia, CBC normal, VBG with pH normal at 7.36, no lactic acidosis, lactate is 1.8, CMP with normal electrolytes, no findings of hypoglycemia, blood glucose appropriate at 115 for being nonfasting, kidney function and liver enzymes within normal limits, EtOH undetectable. Initial troponin undetectably low at less than 0.01, repeat troponin pending. Given patient is asymptomatic from chest pain, this is reassuring. Patient's significant other presented to bedside. She states that patient was texting her and called stating he felt weird . She stated the way he was describing his symptoms she was concerned that this description of symptoms was similar to when he had a large OR and required 4 stents. Patient states he is feeling hot then cold. When asked further about his Substance use, he states he is unsure the amount that he smoked tonight and does not know if it was from the same supply he previously used. XR personally interpreted demonstrates no acute intrathoracic abnormality on my personal interpretation. Patient had 1 episode of emesis in the ER and now feels improved compared to prior. I personally interpreted head CT and do not appreciate obvious large space-occupying lesion. I received a phone call from radiologist at 0100 that they are suspicious for a 3 mm subdural hematoma on the right. Patient states he has headache at this time but denies any recent trauma. He states he does not recall hitting his head. He does not have any tenderness to palpation, abrasion, ecchymosis, or other abnormalities on the skull or scalp, no obvious signs of trauma but patient does not recall. Patient does take aspirin and prasugrel so he is at increased risk for continuing intracranial bleed. He requires transfer to a facility with neurosurgery available. has been contacted for transfer, awaiting a callback at 0105. Patient received IV Tylenol for headache. [address] Gruber with neurosurgery, he recommends repeat 6-hour head CT and continued neurologic monitoring. Because patient takes aspirin, he is a BIG3 and I believe requires transfer. Neurosurgery at has stated they do not anticipate any neurosurgical intervention at this time, however I am being connected with trauma surgery for further discussion. [address] Bowman at trauma, refused the patient for transfer due to unclear history of trauma and patient not having other neuro deficits aside from confusion. Given patient's lack of ability to recall events of the night and inability to rule out traumatic injury, I am concerned for the possibility of traumatic subdural hematoma in the setting of blood thinner use. I still believe patient requires transfer to higher level of care for continued management. Contacting [facility] for transfer consult. [address] [facility] neuro[address]geon Dr. Marcus and I discussed this patient. She too is concerned about patient being on dual antiplatelet therapy with intracranial bleed regardless of etiology at this time. She accepted the patient for ED to ED transfer. I asked about antiplatelet reversal and she stated it was not necessary at this time. Spoke with ED attending at and informed him of patient's presentation and history as well as workup here. He is in agreement with transfer. Patient is being transferred to via air transport due to the potential for clinical decompensation and need for continued close management. Prior to leaving the ER, I performed neurologic exam on the patient again. He continues to have PERRL, EOMI, no visual field abnormalities, normal finger-nose and [id number], 5 out of 5 strength in all extremities, no sensory deficits, no facial droop, cranial nerves intact. Patient left the ER neurologically intact in stable condition. Critical Care Critical Care Time Critical Care Time: Yes Attestation: On 10/16/23, the high probability of a clinically significant, sudden or life threatening deterioration of the following system(s) (neurologic) required my full and direct attention, intervention and personal management. The time I documented below is in addition to time spent performing reported procedures but includes the following listed in this critical care notation. Total Time Total Critical Care Time: 35
[2023-10-16] MEDS: LACTATED RINGERS 1000ML 1,000 ML 999 ML IV (23:44)
[2023-10-16 23:46] LABS: Lactate Venous 1.8 mmol/L (0.4-2.0); VBG Base Excess -3.5 mmol/L (-2.4-2.3); VBG HCO3 21.9 mmol/L (23-30); VBG Oxygen Saturation 97.9 % (50-70); VBG PCO2 39.8 mmol/L (35-51); VBG PH 7.36 mmol/L (7.31-7.41); VBG PO2 100.8 mmol/L (28-40); VBG Total CO2 23.2 mmol/L (23-27)
[2023-10-16 23:46] LABS: Basophils # 0.2 K/mm3 (0-0.2); Basophils % 1.6 % (0.1-2.0); Eosinophils # 0.1 K/mm3 (0.0-0.4); Eosinophils % 0.8 % (0.1-12.0); Hematocrit 47.5 % (42.0-52.0); Hemoglobin 15.6 g/dL (14.1-18.0); Lymphocytes # 3.7 K/mm3 (0.7-4.5); Lymphocytes % 38.1 % (10-50); Mean Corpuscular HGB Conc 32.9 g/dL (31.8-35.4); Mean Corpuscular Hemoglobin 30.5 pg (27.0-31.2); Mean Corpuscular Volume 92.9 fl (80-94); Mean Platelet Volume 8.5 fl (7.4-10.4); Monocytes # 0.7 K/mm3 (0.1-1.0); Monocytes % 7.5 % (1.7-9.3); Neutrophils % 51.9 % (37.0-80.0); Platelet Count 303 K/mm3 (142-424); Red Blood Count 5.12 M/mm3 (4.60-6.20); Red Cell Distribution Width 13.7 % (11.5-17.5); White Blood Count 9.6 K/mm3 (4.8-10.8)
--- NOTE | 2023-10-16 23:47 | PC.NURSE ---
patient being taken upstairs to CT
[2023-10-16 23:51] LABS: Alanine Aminotransferase 73 U/L (12-78); Albumin Level 4.7 g/dl (3.5-5.0); Albumin/Globulin Ratio 1.6 (1.1-1.8); Alkaline Phosphatase 81 U/L (38-126); Anion Gap 13.5 mEq/L (5-15); Aspartate Amino Transferase 47 U/L (17-59); Bilirubin,Total 0.9 mg/dl (0.2-1.3); Blood Urea Nitrogen 16 mg/dl (9-20); Calcium 9.7 mg/dl (8.4-10.2); Carbon Dioxide 25 mmol/L (22.0-30.0); Chloride 103 mmol/L (98-107); Creatinine Clearance Estimated 98 mL/min (50-200); Estimated Glomerular Filt Rate 82 ml/min (>60); GFR (African American) 99 ML/MIN (>60); Globulin 2.9 g/dL (1.3-3.2); Glucose 115 mg/dl (74-100); Potassium 3.5 mmoL/L (3.5-5.1); Sodium 138 mmol/L (136-145); Total Protein,Serum 7.6 g/dl (6.3-8.2)
[2023-10-16 23:52] LABS: Ethyl Alcohol < 10 mg/dl (0-10)
--- NOTE | 2023-10-17 00:15 | ECG_ITS ---
APPROVED REPORT Exam: Resting ECG HR:67 bpm ECG Measurements Heart Rate 67 AXES WV 160 P 54 QRSd 106 QRS 42 QT 401 T 27 QTc 417 Conclusion SINUS RHYTHM WITH SINUS ARRHYTHMIA LOW QRS VOLTAGE IN PRECORDIAL LEADS [QRS DEFLECTION < 1.0 mV IN CHEST LEADS] BORDERLINE ECG UNCONFIRMED REPORT Electronically signed by : MAYCO LAGOS, 10/19/2023 06:20:23
[2023-10-17 00:30] VITALS: BP 114/76; PULSE 71; RESP 12; O2SAT 96
[2023-10-17 00:30] LABS: Troponin I < 0.01 ng/ml (0.00-0.034)
--- NOTE | 2023-10-17 00:56 | PC.NURSE ---
[facility] called in reards to finding on patient. Dr. Lindsay on phone at this time.
--- NOTE | 2023-10-17 00:58 | PC.NURSE ---
Contacted RAD to [email or web address] to [facility] for transfer.
[2023-10-17 01:00] VITALS: BP 106/61; PULSE 74; RESP 18; O2SAT 96
--- NOTE | 2023-10-17 01:01 | PC.NURSE ---
call to [facility] MD's re transfer to their facility, awaiting return call
--- NOTE | 2023-10-17 01:28 | PC.NURSE ---
Contacted for transfer after [facility] turned down the transfer.
[2023-10-17] MEDS: ACETAMINOPHEN 1,000MG/100ML VIAL 1000 MG IV (01:29)
[2023-10-17] MEDS: ONDANSETRON 4MG/2ML VIAL 4 MG IV (01:29)
[2023-10-17 01:30] VITALS: BP 100/60; PULSE 73; RESP 16; O2SAT 95
--- NOTE | 2023-10-17 01:47 | PC.NURSE ---
Contacted [facility] [place] in regards to flight to ED [facility] checked weather and accepted flight. ETA 26 min
--- NOTE | 2023-10-17 01:48 | PC.NURSE ---
Report called to CHRISTIANO Corea @ [facility]
[2023-10-17 02:25] VITALS: BP 134/93; PULSE 74; RESP 17; TEMP 36.8; O2SAT 98
== END 2023-10-17 02:27 | disposition short-term general hospital (02) ==
PROVIDERS: Emergency Provider Emergency Medicine
DX: S06.5X0A Traumatic subdural hemorrhage without loss of consciousness, initial encounter (principal); R41.82 Altered mental status, unspecified; R42 Dizziness and giddiness; F17.210 Nicotine dependence, cigarettes, uncomplicated; I11.0 Hypertensive heart disease with heart failure; I50.20 Unspecified systolic (congestive) heart failure; E78.5 Hyperlipidemia, unspecified; I25.119 Atherosclerotic heart disease of native coronary artery with unspecified angina pectoris; K21.9 Gastro-esophageal reflux disease without esophagitis; X58.XXXA Exposure to other specified factors, initial encounter
CPT/HCPCS: 70450; 71045; 80053; 80320; 82803; 84484; 85025; 93005; 96361; 96374; 96375; 99291; G0480; J0131; J2405; J7120

== ENCOUNTER 2023-10-18 22:19 | Emergency (ER) | payer MEDICAID, SELFPAY ==
[2023-10-18 22:20] VITALS: BP 140/94; PULSE 73; RESP 18; TEMP 36.8; O2SAT 98; BMI 26.6
[2023-10-18 22:33] VITALS: BMI 26.6
--- NOTE | 2023-10-18 22:33 | CT_ITS ---
PROCEDURE INFORMATION: Exam: CT Head Without Contrast Exam date and time: 10/18/2023 10:41 PM Age: 43 years old Clinical indication: Pain; Headache; Additional info: Recent subdural hemorrage TECHNIQUE: Imaging protocol: Computed tomography of the head without contrast. Radiation optimization: All CT scans at this facility use at least one of these dose optimization techniques: automated exposure control; mA and/or kV adjustment per patient size (includes targeted exams where dose is matched to clinical indication); or iterative reconstruction. COMPARISON: 1. CT HEAD/BRAIN WO CON 10/16/2023 11:[address] HEAD/BRAIN WO CON 04/06/2020 4:24 PM FINDINGS: Brain: Slightly less apparent suspected right parafalcine subdural hemorrhage less than 3 mm in thickness on today's study. Normal brain morphology. No acute infarct. Unremarkable white matter. No mass effect. Cerebral ventricles: No ventriculomegaly. Paranasal sinuses: Visualized sinuses are unremarkable. No fluid levels. Mastoid air cells: Visualized mastoid air cells are well aerated. Orbital cavities: The orbital contents are symmetric and normal. Bones: Unremarkable. No acute fracture. Soft tissues: Unremarkable. IMPRESSION: Slightly less apparent suspected right parafalcine subdural hemorrhage.
[2023-10-18] MEDS: LACTATED RINGERS 1000ML 1,000 ML 999 ML IV (22:38)
[2023-10-18] MEDS: ONDANSETRON 4MG/2ML VIAL 4 MG IV (22:38)
[2023-10-18 22:39] LABS: Basophils # 0.1 K/mm3 (0-0.2); Basophils % 0.9 % (0.1-2.0); Eosinophils # 0.1 K/mm3 (0.0-0.4); Eosinophils % 0.9 % (0.1-12.0); Hematocrit 48.8 % (42.0-52.0); Hemoglobin 15.9 g/dL (14.1-18.0); Lymphocytes # 1.8 K/mm3 (0.7-4.5); Lymphocytes % 19.8 % (10-50); Mean Corpuscular HGB Conc 32.7 g/dL (31.8-35.4); Mean Corpuscular Hemoglobin 30.2 pg (27.0-31.2); Mean Corpuscular Volume 92.4 fl (80-94); Mean Platelet Volume 8.3 fl (7.4-10.4); Monocytes # 0.5 K/mm3 (0.1-1.0); Monocytes % 5.5 % (1.7-9.3); Neutrophils # 6.4 K/mm3 (1.8-7.8); Neutrophils % 72.9 % (37.0-80.0); Platelet Count 264 K/mm3 (142-424); Red Blood Count 5.28 M/mm3 (4.60-6.20); Red Cell Distribution Width 13.9 % (11.5-17.5); White Blood Count 8.8 K/mm3 (4.8-10.8)
[2023-10-18 22:40] LABS: Chloride 100 mmol/L (98-107); Potassium 3.7 mmoL/L (3.5-5.1); Sodium 137 mmol/L (136-145)
[2023-10-18 22:43] LABS: Alanine Aminotransferase 56 U/L (12-78); Albumin/Globulin Ratio 1.6 (1.1-1.8); Alkaline Phosphatase 76 U/L (38-126); Anion Gap 14.7 mEq/L (5-15); Aspartate Amino Transferase 38 U/L (17-59); Blood Urea Nitrogen 18 mg/dl (9-20); Calcium 9.7 mg/dl (8.4-10.2); Carbon Dioxide 26 mmol/L (22.0-30.0); Creatinine Clearance Estimated 109 mL/min (50-200); Estimated Glomerular Filt Rate 92 ml/min (>60); GFR (African American) 111 ML/MIN (>60); Globulin 3.2 g/dL (1.3-3.2); Glucose 97 mg/dl (74-100); Total Protein,Serum 8.2 g/dl (6.3-8.2)
--- NOTE | 2023-10-18 23:20 | ED_ITS ---
Discharge Plan Disposition Patient Disposition: Home, Self-Care Prescriptions Prescriptions: No Action spironolactone [Aldactone] 25 mg tablet 25 mg PO DAILY Qty: 90 2RF levocetirizine [Xyzal] 5 mg tablet 5 mg PO HS Qty: 90 3RF pantoprazole 40 mg tablet,delayed release (DR/EC) See Rx Instructions .ROUTE .COMPLEX Qty: 90 1RF Dose Instruction: TAKE ONE TABLET BY MOUTH EVERY DAY FOR gerd Rx Instructions: TAKE ONE TABLET BY MOUTH EVERY DAY FOR gerd Entresto 49-51 mg tablet 1 tab PO BID Qty: 180 1RF prasugrel [Effient] 10 mg tablet 10 mg PO DAILY 30 Days Qty: 30 3RF Jardiance 10 mg tablet See Rx Instructions .ROUTE .COMPLEX Qty: 90 1RF Dose Instruction: TAKE ONE TABLET BY MOUTH EVERY DAY Rx Instructions: TAKE ONE TABLET BY MOUTH EVERY DAY atorvastatin 80 mg tablet See Rx Instructions .ROUTE .COMPLEX Qty: 90 3RF Hold Instructions: Home Medication placed on hold at Doctor's office Dose Instruction: TAKE ONE TABLET BY MOUTH EVERY DAY AT BEDTIME Rx Instructions: TAKE ONE TABLET BY MOUTH EVERY DAY AT BEDTIME aspirin 81 mg tablet,delayed release (DR/EC) See Rx Instructions .ROUTE .COMPLEX Qty: 90 3RF Dose Instruction: TAKE ONE TABLET BY MOUTH EVERY DAY FOR heart disease Rx Instructions: TAKE ONE TABLET BY MOUTH EVERY DAY FOR heart disease carvedilol 6.25 mg tablet See Rx Instructions .ROUTE .COMPLEX Qty: 180 3RF Dose Instruction: TAKE ONE TABLET BY MOUTH TWICE DAILY --TAKE WITH A MEAL/FOOD-- Rx Instructions: TAKE ONE TABLET BY MOUTH TWICE DAILY --TAKE WITH A MEAL/FOOD-- Referrals Follow up/Referrals: Provider,Referral, MD [Primary Care Provider] - See instructions Activity Restrictions/Add. Instructions Additional Instructions/Restrictions: Please follow-up with your primary care provider. Please return to the emergency department if you develop any new or worsening symptoms or become concerned for your health. Clinical Impressions Clinical Impression: Headache Qualifiers: Headache chronicity pattern: acute headache Intractability: intractable Discharge ED Provider: Lee Harkins Adult HPI General Chief complaint: Headache Stated complaint: SWIFT, vomiting Time Seen by Provider: 10/18/23 23:20 Mode of Arrival: Ambulatory Source of Information: Patient Limitations: No Limitations Description of Symptoms (Recalled from ER Triage Doc. by RN): Pt presented to the ED for a headache. Pt was seen in the ED and sent to [facility] for a spontaneous subdural hemorrhage on . Pt was discharged from [facility] when the bleed was noted to be stable and since discharge pt has had a headache and vomiting with no nausea that has only gotten worse over time. Pt is A & O x 4. History of Present Illness HPI narrative: 43-year-old male presents with persistent headache. He was seen here on and was noted to have a spontaneous subdural hemorrhage and was transferred to [facility]. He was on antiplatelet therapy due to distant stents. He was observed there and noted to have stable findings on repeat CT scan and was discharged. He has had persistent headaches since the onset of symptoms and he had headache and nausea even when he was discharged in [facility]. Reports it has gotten a bit worse and so he presents to the ER for further evaluation. He reports no vision changes. Headache is bifrontal, approximately 6 out of 10, constant. He reports that he is no longer on his blood thinners until his follow-up. Related Data Previous Rx's Medication Instructions Recorded spironolactone 25 mg tablet 25 mg PO DAILY #90 tabs 03/06/23 (Aldactone) pantoprazole 40 mg tablet,delayed See Rx Instructions .Route 06/17/23 release .COMPLEX #90 tabs sacubitril 49 mg-valsartan 51 mg 1 tab PO BID #180 tabs 06/24/23 tablet (Entresto) prasugrel 10 mg tablet (Effient) 10 mg PO DAILY 30 days #30 tabs 07/08/23 empagliflozin 10 mg tablet See Rx Instructions .Route 08/29/23 (Jardiance) .COMPLEX #90 tabs levocetirizine 5 mg tablet (Xyzal) 5 mg PO HS #90 tabs 09/01/23 aspirin 81 mg tablet,delayed See Rx Instructions .Route 09/23/23 release .COMPLEX #90 tabs atorvastatin 80 mg tablet See Rx Instructions .Route 09/23/23 .COMPLEX #90 tabs carvedilol 6.25 mg tablet See Rx Instructions .Route 09/25/23 .COMPLEX #180 tabs Allergies Allergy/AdvReac Type Severity Reaction Status Date / Time codeine AdvReac Verified 09/30/23 13:50 isosorbide AdvReac headache Verified 09/30/23 13:50 morphine AdvReac Verified 09/30/23 13:50 ranolazine AdvReac Mild depression Uncoded 09/30/23 13:50 [facility] Disclaimer: The information contained in this section may have been updated after the patient was seen, as this information can be updated by other users. Medical History Abnormal findings on diagnostic imaging of heart and coronary circulation Illness STEMI (ST elevation myocardial infarction) Chest pain Anxiety Angina pectoris Snoring Difficulty sleeping Fatigue Typical angina Abnormal result of cardiovascular function study Chest pain Gastroesophageal reflux disease Dyspnea Renal lesion Elevated lipase Atypical chest pain Vasovagal syncope Dizziness Angina pectoris HLD (hyperlipidemia) Chest pain CAD (coronary artery disease) Cardiomyopathy Systolic heart failure Tobacco use Low cardiac output syndrome LVH (left ventricular hypertrophy) COVID-19 Left elbow pain STEMI (ST elevation myocardial infarction) Exposure to COVID-19 virus Headache Left arm numbness Foot contusion Surgical History History of heart artery stent H/O cardiac catheterization Family History Father Family history of myocardial infarction Grandfather Family history of myocardial infarction Grandmother Family history of myocardial infarction Other Family history of hyperlipidemia Family history of hypertension Family history of stroke Social History Smoking Status: Current every day smoker alcohol intake: never substance use type: marijuana current occupational status: employed and unemployed Travel in the last 8 weeks: None household members: family housing: house marital status: single current occupation: [employer] current occupational exposures/hazards: No caffeine: Yes ROS Obtained: Yes All systems reviewed & no additional complaints except as documented Physical Exam General General appearance: alert and in no apparent distress Head Head exam: atraumatic and normocephalic Eye Eye exam: Present normal appearance, PERRL and EOMI ENT ENT exam: Present normal oropharynx and normal external ear exam Neck Neck exam: Present normal inspection and full ROM Chest Chest inspection: Present normal inspection and symmetric chest wall rise; Absent tenderness Respiratory Respiratory exam: Present normal lung sounds bilaterally; Absent respiratory distress Cardiovascular Cardiovascular exam: Present regular rate and normal rhythm Abdominal Exam Abdominal exam: Present soft; Absent distention, tenderness or guarding Extremities Exam Extremities exam: Present normal inspection; Absent edema or joint swelling Back Exam Back exam: Present normal inspection; Absent tenderness Neurological Exam Neurological exam: Present alert and oriented X3; Absent motor sensory deficit Psychiatric Psychiatric exam: Present normal affect and normal mood Skin Skin exam: Present warm, dry and normal color Lymphatic Lymphatic Findings: no adenopathy Medical Decision Making Medical Records Medical records reviewed: Yes I reviewed the patient's medical records. Scott Inquiry Pt receiving controlled substance: No Scott was queried for this patient: No Vital Signs: 10/18/23 22:20 Temperature 98.2 F Temperature Source Oral Pulse Rate [Right Brachial] 73 Respiratory Rate 18 Blood Pressure [Right Arm] 140/94 H Blood Pressure Mean [Right Arm] 109 02 Sat by Pulse Oximetry 98 Oxygen Delivery Method Room Air Lab Data Lab results reviewed: Yes I reviewed the patient's lab results. Lab Results 10/18/23 22:28: WBC 8.8, RBC 5.28, Hgb 15.9, Hct 48.8, MCV 92.4, MCH 30.2, MCHC 32.7, RDW 13.9, Plt Count 264, MPV 8.3, Neut % (Auto) 72.9, Lymph % (Auto) 19.8, [place] % (Auto) 5.5, Eos % (Auto) 0.9, Baso % (Auto) 0.9, Neut # (Auto) 6.4, Lymph # (Auto) 1.8, [place] # (Auto) 0.5, Eos # (Auto) 0.1, Baso # (Auto) 0.1, Sodium 137, Potassium 3.7, Chloride 100, Carbon Dioxide 26, Anion Gap 14.7, BUN 18, Creatinine 0.90, Estimated Creat Clear 109, Estimated GFR 92, Est GFR ( Amer) 111, Glucose 97, Calcium 9.7, Total Bilirubin 1.0, AST 38, ALT 56, Alkaline Phosphatase 76, Total Protein 8.2, Albumin 5.0, Globulin 3.2, Albumin/Globulin Ratio 1.6 10/18/23 22:28 10/18/23 22:28 Orders (Tests/Meds): ED MEDICATIONS Discontinued Medications Generic Name Dose Route Start Last Admin Trade Name Freq PRN Reason Stop Dose Admin Acetaminophen 1,000 mg 06/22/24 23:53 10/19/23 00:01 Acetaminophen 500mg Tab PO 10/18/23 23:54 1,000 mg ONCE ONE Administration Dexamethasone Sodium Phosphate 10 mg 10/18/23 23:53 10/19/23 00:01 Dexamethasone 4mg/Ml 5ml Mdv IV 10/18/23 23:54 10 mg ONCE ONE Administration Diphenhydramine HCl 25 mg 10/18/23 23:53 10/19/23 00:01 Diphenhydramine 50mg/Ml Vial IV 10/18/23 23:54 25 mg ONCE ONE Administration Lactated Ringer's 1,000 mls @ 999 mls/hr 10/18/23 22:33 10/18/23 22:38 Lactated Ringer's 1000 Ml Bag IV 10/18/23 23:33 999 mls/hr .Q1H1M ONE Administration Ondansetron HCl 4 mg 10/18/23 22:33 10/18/23 22:38 Ondansetron 4mg/2ml Vial IV 10/18/23 22:34 4 mg ONCE ONE Administration Prochlorperazine Edisylate 10 mg 10/18/23 23:53 10/19/23 00:01 Prochlorperazine 10mg/2ml Vial IV 10/18/23 23:54 10 mg ONCE ONE Administration ORDERS Category Date Time Status CT head/brain wo con Stat Cat Scan 10/18/23 22:33 Completed Complete Blood Count Auto Diff Stat Lab 10/18/23 22:28 Completed Comprehensive Metabolic Panel Stat Lab 10/18/23 22:28 Completed Medical Decision Narrative: 43-year-old male with history of recent spontaneous subdural hemorrhage presents for persistent headache. History was obtained interactive discussion with patient, family, chart review. On arrival, patient is [afebrile, hemodynamically stable, satting appropriately, alert, oriented x4, GCS 15], moving all extremities spontaneously. Full physical exam performed and significant for no significant physical exam abnormalities. Differential includes but is not limited to recurrent intracranial hemorrhage, tension headache, migraine headache,. Patient was given 1 L fluid bolus, Tylenol, Compazine, Decadron, Benadryl for symptomatic management and correction of underlying abnormalities. Workup initiated including CT head, CBC CMP. On re-evaluation, patient reports complete symptomatic resolution of headache for the first time since . Laboratory workup independently interpreted by me and significant for no significant abnormalities.. Imaging independently interpreted by me and significant for improved appearance of subdural hemorrhage, no new hemorrhage noted.. See radiology read for full review of final results. Given patient history, exam and workup, patient's presentation most likely represents headache secondary to prior subdural hemorrhage. No evidence of new intracranial bleeding. Given complete symptomatic resolution, no indication for further workup at this time. Patient discharged in stable condition. Return precautions given. Procedures Risk/Benefits of Procedure(s) Were Explained: Yes Critical Care Critical Care Time Critical Care Time: No
[2023-10-19] MEDS: PROCHLORPERAZINE 10MG/2ML VIAL 10 MG IV (00:01)
[2023-10-19] MEDS: ACETAMINOPHEN 500MG TAB 1000 MG PO (00:01)
[2023-10-19] MEDS: DEXAMETHASONE 4MG/ML 5ML MDV 10 MG IV (00:01)
[2023-10-19] MEDS: diphenhydrAMINE 50MG/ML VIAL 25 MG IV (00:01)
[2023-10-19 01:39] VITALS: BP 100/48; PULSE 78; RESP 18; TEMP 37; O2SAT 99
== END 2023-10-19 01:41 | disposition home or self-care (01) ==
PROVIDERS: Emergency Medicine; Emergency Provider Emergency Medicine
DX: G44.89 Other headache syndrome (principal); R11.2 Nausea with vomiting, unspecified; Z86.79 Personal history of other diseases of the circulatory system; K21.9 Gastro-esophageal reflux disease without esophagitis; F17.210 Nicotine dependence, cigarettes, uncomplicated; E78.5 Hyperlipidemia, unspecified; I11.0 Hypertensive heart disease with heart failure; I50.20 Unspecified systolic (congestive) heart failure; I25.119 Atherosclerotic heart disease of native coronary artery with unspecified angina pectoris
CPT/HCPCS: 70450; 80053; 85025; 96361; 96374; 96375; 99285; J2405; J7120

== ENCOUNTER 2023-10-22 16:13 | Emergency (ER) | payer MEDICAID, SELFPAY ==
[2023-10-22 16:14] VITALS: BP 133/94; PULSE 77; RESP 18; TEMP 36.7; O2SAT 98; BMI 24.2
--- NOTE | 2023-10-22 16:16 | PC.NURSE ---
DR TEJADA AT BEDSIDE
--- NOTE | 2023-10-22 16:22 | CT_ITS ---
PROCEDURE INFORMATION: Exam: CT Head Without Contrast Exam date and time: 10/22/2023 4:34 PM Age: 43 years old Clinical indication: Pain; Headache; Additional info: Previous sdh/worse SWIFT TECHNIQUE: Imaging protocol: Computed tomography of the head without contrast. Radiation optimization: All CT scans at this facility use at least one of these dose optimization techniques: automated exposure control; mA and/or kV adjustment per patient size (includes targeted exams where dose is matched to clinical indication); or iterative reconstruction. COMPARISON: CT HEAD/BRAIN WO CON 10/18/2023 10:41 PM FINDINGS: Brain: No significant change in size or appearance of the right parafalcine subdural hematoma. No evidence for acute transcortical infarct. No mass effect or midline shift. No acute intraparenchymal hemorrhage. Basal cisterns are patent. Cerebral ventricles: No ventriculomegaly. Paranasal sinuses: Visualized sinuses are unremarkable. No fluid levels. Mastoid air cells: Visualized mastoid air cells are well aerated. Bones: Unremarkable. No acute fracture. Soft tissues: Unremarkable. IMPRESSION: 1. No significant change in size or appearance of the right parafalcine subdural hematoma. 2. No acute subarachnoid hemorrhage or mass effect.
--- NOTE | 2023-10-22 16:22 | CT_ITS ---
PROCEDURE INFORMATION: Exam: CTA Neck With Contrast Exam date and time: 10/22/2023 4:36 PM Age: 43 years old Clinical indication: Pain; Headache; Additional info: Previous sdh/worse SWIFT TECHNIQUE: Imaging protocol: Computed tomographic angiography of the neck with contrast. Exam focused on the cervical segments of the vasculature. 3D rendering (Not supervised by radiologist): MIP and/or 3D reconstructed images were created by the technologist. Radiation optimization: All CT scans at this facility use at least one of these dose optimization techniques: automated exposure control; mA and/or kV adjustment per patient size (includes targeted exams where dose is matched to clinical indication); or iterative reconstruction. Contrast material: ISOVUE; Contrast volume: 100 ml; Contrast route: INTRAVENOUS (IV); COMPARISON: CT ANGIO NECK 04/06/2020 4:27 PM FINDINGS: Right common carotid artery: No stenosis. No dissection or occlusion. Right internal carotid artery: No stenosis of the extracranial segment. No dissection or occlusion. Right external carotid artery: No occlusion or stenosis of the origin. Left common carotid artery: No stenosis. No dissection or occlusion. Left internal carotid artery: No stenosis of the extracranial segment. No dissection or occlusion. Left external carotid artery: No occlusion or stenosis of the origin. Right vertebral artery: No stenosis. No dissection or occlusion. Left vertebral artery: No stenosis. No dissection or occlusion. Soft tissues: Normal. No significant soft tissue swelling. Bones/joints: No acute fracture. IMPRESSION: No stenosis. No acute dissection. REFERENCES: NASCET CRITERIA. The degree of stenosis in the cervical segment of the internal carotid artery is based on NASCET criteria. Normal is no stenosis. Mild is less than 50% stenosis. Moderate is 50-69% stenosis. Severe is 70% to 99% stenosis. Total occlusion is no detectable patent lumen.
--- NOTE | 2023-10-22 16:22 | CT_ITS ---
PROCEDURE INFORMATION: Exam: CTA Head With Contrast, Arteriography Exam date and time: 10/22/2023 4:36 PM Age: 43 years old Clinical indication: Pain; Headache; Additional info: Previous sdh/worse SWIFT TECHNIQUE: Imaging protocol: Computed tomographic angiography of the head with contrast. Exam focused on the arteries. 3D rendering (Not supervised by radiologist): MIP and/or 3D reconstructed images were created by the technologist. Radiation optimization: All CT scans at this facility use at least one of these dose optimization techniques: automated exposure control; mA and/or kV adjustment per patient size (includes targeted exams where dose is matched to clinical indication); or iterative reconstruction. Contrast material: ISOVUE; Contrast volume: 100 ml; Contrast route: INTRAVENOUS (IV); COMPARISON: CT HEAD/BRAIN WO CON 10/22/2023 4:34 PM FINDINGS: ANTERIOR CIRCULATION: Right internal carotid artery: Intracranial segment is patent with no significant stenosis. No aneurysm. Right middle cerebral artery: No occlusion or significant stenosis. No aneurysm. Right anterior cerebral artery: No occlusion or significant stenosis. No aneurysm. Left internal carotid artery: Intracranial segment is patent with no significant stenosis. No aneurysm. Left middle cerebral artery: No occlusion or significant stenosis. No aneurysm. Left anterior cerebral artery: No occlusion or significant stenosis. No aneurysm. POSTERIOR CIRCULATION: Right vertebral artery: No occlusion or significant stenosis. No aneurysm. Left vertebral artery: No occlusion or significant stenosis. No aneurysm. Basilar artery: No occlusion or significant stenosis. No aneurysm. Right posterior cerebral artery: No occlusion or significant stenosis. No aneurysm. Left posterior cerebral artery: No occlusion or significant stenosis. No aneurysm. Brain: No definite mass, mass effect, or midline shift. Cerebral ventricles: No ventriculomegaly. Bones/joints: Unremarkable. No acute fracture. Soft tissues: Unremarkable. IMPRESSION: No stenosis or aneurysm.
[2023-10-22] MEDS: LACTATED RINGERS 1000ML 1,000 ML 999 ML IV (16:30)
--- NOTE | 2023-10-22 16:30 | PC.NURSE ---
PT TO CT
[2023-10-22 16:32] LABS: Basophils # 0.1 K/mm3 (0-0.2); Basophils % 1.4 % (0.1-2.0); Eosinophils # 0.1 K/mm3 (0.0-0.4); Eosinophils % 1.6 % (0.1-12.0); Hematocrit 48.8 % (42.0-52.0); Hemoglobin 16.4 g/dL (14.1-18.0); Lymphocytes # 1.7 K/mm3 (0.7-4.5); Lymphocytes % 24.9 % (10-50); Mean Corpuscular HGB Conc 33.6 g/dL (31.8-35.4); Mean Corpuscular Hemoglobin 30.9 pg (27.0-31.2); Mean Corpuscular Volume 92.1 fl (80-94); Mean Platelet Volume 8.3 fl (7.4-10.4); Monocytes # 0.5 K/mm3 (0.1-1.0); Monocytes % 6.8 % (1.7-9.3); Neutrophils # 4.5 K/mm3 (1.8-7.8); Neutrophils % 65.3 % (37.0-80.0); Platelet Count 276 K/mm3 (142-424); Red Cell Distribution Width 13.8 % (11.5-17.5); White Blood Count 6.9 K/mm3 (4.8-10.8)
[2023-10-22 16:35] LABS: Chloride 102 mmol/L (98-107); Potassium 4.1 mmoL/L (3.5-5.1); Sodium 137 mmol/L (136-145)
--- NOTE | 2023-10-22 16:35 | HMH.EDGENADL ---
Discharge Plan Disposition Patient Disposition: Home, Self-Care Chief Complaint: Headache Prescriptions Prescriptions: No Action spironolactone [Aldactone] 25 mg tablet 25 mg PO DAILY Qty: 90 2RF levocetirizine [Xyzal] 5 mg tablet 5 mg PO HS Qty: 90 3RF pantoprazole 40 mg tablet,delayed release (DR/EC) See Rx Instructions .ROUTE .COMPLEX Qty: 90 1RF Dose Instruction: TAKE ONE TABLET BY MOUTH EVERY DAY FOR gerd Rx Instructions: TAKE ONE TABLET BY MOUTH EVERY DAY FOR gerd Entresto 49-51 mg tablet 1 tab PO BID Qty: 180 1RF prasugrel [Effient] 10 mg tablet 10 mg PO DAILY 30 Days Qty: 30 3RF Jardiance 10 mg tablet See Rx Instructions .ROUTE .COMPLEX Qty: 90 1RF Dose Instruction: TAKE ONE TABLET BY MOUTH EVERY DAY Rx Instructions: TAKE ONE TABLET BY MOUTH EVERY DAY atorvastatin 80 mg tablet See Rx Instructions .ROUTE .COMPLEX Qty: 90 3RF Hold Instructions: Home Medication placed on hold at Doctor's office Dose Instruction: TAKE ONE TABLET BY MOUTH EVERY DAY AT BEDTIME Rx Instructions: TAKE ONE TABLET BY MOUTH EVERY DAY AT BEDTIME aspirin 81 mg tablet,delayed release (DR/EC) See Rx Instructions .ROUTE .COMPLEX Qty: 90 3RF Dose Instruction: TAKE ONE TABLET BY MOUTH EVERY DAY FOR heart disease Rx Instructions: TAKE ONE TABLET BY MOUTH EVERY DAY FOR heart disease carvedilol 6.25 mg tablet See Rx Instructions .ROUTE .COMPLEX Qty: 180 3RF Dose Instruction: TAKE ONE TABLET BY MOUTH TWICE DAILY --TAKE WITH A MEAL/FOOD-- Rx Instructions: TAKE ONE TABLET BY MOUTH TWICE DAILY --TAKE WITH A MEAL/FOOD-- Referrals Follow up/Referrals: Martha Andrews APRN [Primary Care Provider] - See instructions Activity Restrictions/Add. Instructions Additional Instructions/Restrictions: At this time it was felt you are safe to be discharged home. If new or worsening symptoms please do not hesitate to return the emergency department. Clinical Impressions Clinical Impression: History of subdural hematoma, Headache Discharge ED Provider: Cooper Reese General Adult HPI General Chief complaint: Headache Stated complaint: SWIFT, dizzy, nausea Time Seen by Provider: 10/22/23 16:21 Mode of Arrival: Ambulatory Source of Information: Patient Limitations: No Limitations Description of Symptoms (Recalled from ER Triage Doc. by RN): PT C/O SQUEEZING HEADACHE THAT HE WOKE WITH THIS AM. PT HAD SUBDURAL HEMORRHAGE ON 10/16/2023 OF UNKNOWN CAUSE, TRANSFERRED TO AND DISCHARGED History of Present Illness HPI narrative: Patient is a 43-year-old male with past medical history of recent subdural hematoma of unknown determined etiology who was sent to [facility] and discharged who presents emergency department for evaluation of headache. Patient was seen last week here in our facility, and was suspected to have a right parafalcine subdural hematoma. [facility] declined excepting due to unclear mechanism and patient was emergently transported to [facility] where he reportedly underwent repeat CT imaging and neuroassessments and was discharged home. Since then he has had waxing and waning headaches however he has had a much worse headache today that is global, squeezing. No arm or leg deficits, no speech deficits, no chest pain. No other acute complaints at this time. Related Data Previous Rx's Medication Instructions Recorded spironolactone 25 mg tablet 25 mg PO DAILY #90 tabs 03/06/23 (Aldactone) pantoprazole 40 mg tablet,delayed See Rx Instructions .Route 06/17/23 release .COMPLEX #90 tabs sacubitril 49 mg-valsartan 51 mg 1 tab PO BID #180 tabs 06/24/23 tablet (Entresto) prasugrel 10 mg tablet (Effient) 10 mg PO DAILY 30 days #30 tabs 07/08/23 empagliflozin 10 mg tablet See Rx Instructions .Route 08/29/23 (Jardiance) .COMPLEX #90 tabs levocetirizine 5 mg tablet (Xyzal) 5 mg PO HS #90 tabs 09/01/23 aspirin 81 mg tablet,delayed See Rx Instructions .Route 09/23/23 release .COMPLEX #90 tabs atorvastatin 80 mg tablet See Rx Instructions .Route 09/23/23 .COMPLEX #90 tabs carvedilol 6.25 mg tablet See Rx Instructions .Route 09/25/23 .COMPLEX #180 tabs Allergies Allergy/AdvReac Type Severity Reaction Status Date / Time codeine AdvReac Verified 09/30/23 13:50 isosorbide AdvReac headache Verified 09/30/23 13:50 morphine AdvReac Verified 06/04/24 13:50 ranolazine AdvReac Mild depression Uncoded 09/30/23 13:50 [facility] Disclaimer: The information contained in this section may have been updated after the patient was seen, as this information can be updated by other users. Medical History Abnormal findings on diagnostic imaging of heart and coronary circulation Illness STEMI (ST elevation myocardial infarction) Chest pain Anxiety Angina pectoris Snoring Difficulty sleeping Fatigue Typical angina Abnormal result of cardiovascular function study Chest pain Gastroesophageal reflux disease Dyspnea Renal lesion Elevated lipase Atypical chest pain Vasovagal syncope Dizziness Angina pectoris HLD (hyperlipidemia) Chest pain CAD (coronary artery disease) Cardiomyopathy Systolic heart failure Tobacco use Low cardiac output syndrome LVH (left ventricular hypertrophy) COVID-19 Left elbow pain STEMI (ST elevation myocardial infarction) Exposure to COVID-19 virus Headache Left arm numbness Foot contusion Surgical History History of heart artery stent H/O cardiac catheterization Family History Father Family history of myocardial infarction Grandfather Family history of myocardial infarction Grandmother Family history of myocardial infarction Other Family history of hyperlipidemia Family history of hypertension Family history of stroke Social History Smoking Status: Current every day smoker alcohol intake: never substance use type: marijuana current occupational status: employed and unemployed Travel in the last 8 weeks: None household members: family housing: house marital status: single current occupation: [employer] current occupational exposures/hazards: No caffeine: Yes ROS Obtained: Yes Systems reviewed as appropriate & no additional complaints except as documented Physical Exam General General appearance: alert and in no apparent distress Head Head exam: atraumatic and normocephalic Eye Eye exam: Present PERRL and EOMI ENT ENT exam: Present mucous membranes moist Neck Neck exam: Present normal inspection Chest Chest inspection: Present normal inspection and symmetric chest wall rise Respiratory Respiratory exam: Absent respiratory distress Cardiovascular Cardiovascular exam: Present regular rate and normal rhythm Abdominal Exam Abdominal exam: Present soft; Absent tenderness Extremities Exam Extremities exam: Present normal inspection Neurological Exam Neurological exam: Present alert and CN II-XII intact; Absent motor sensory deficit Psychiatric Psychiatric exam: Present normal affect Skin Skin exam: Present warm and dry Medical Decision Making Scott Inquiry Pt receiving controlled substance: No Vital Signs: 10/22/23 16:14 10/22/23 16:41 10/22/23 17:00 Temperature 98.0 F Temperature Source Oral Pulse Rate 73 66 Pulse Rate [Radial] 77 Respiratory Rate 18 Blood Pressure 127/88 120/86 Blood Pressure [Left Arm] 133/94 H Blood Pressure Mean 98 Blood Pressure Mean [Left Arm] 107 Blood Pressure Source [Left Arm] Automatic Cuff Blood Pressure Position [Left Arm] Sitting 02 Sat by Pulse Oximetry 98 99 97 Oxygen Delivery Method Room Air Room Air 10/22/23 17:30 10/22/23 18:00 Temperature Temperature Source Pulse Rate 63 57 L Pulse Rate [Radial] Respiratory Rate Blood Pressure 118/82 123/83 Blood Pressure [Left Arm] Blood Pressure Mean Blood Pressure Mean [Left Arm] Blood Pressure Source [Left Arm] Blood Pressure Position [Left Arm] 02 Sat by Pulse Oximetry 96 95 Oxygen Delivery Method Room Air Room Air Lab Data Lab Results 10/22/23 16:25: WBC 6.9, RBC 5.30, Hgb 16.4, Hct 48.8, MCV 92.1, MCH 30.9, MCHC 33.6, RDW 13.8, Plt Count 276, MPV 8.3, Neut % (Auto) 65.3, Lymph % (Auto) 24.9, [place] % (Auto) 6.8, Eos % (Auto) 1.6, Baso % (Auto) 1.4, Neut # (Auto) 4.5, Lymph # (Auto) 1.7, [place] # (Auto) 0.5, Eos # (Auto) 0.1, Baso # (Auto) 0.1, Sodium 137, Potassium 4.1, Chloride 102, Carbon Dioxide 26, Anion Gap 13.1, BUN 16, Creatinine 0.90, Estimated Creat Clear 102, Estimated GFR 92, Est GFR ( Amer) 111, Glucose 109 H, Calcium 9.9, Total Bilirubin 0.8, AST 36, ALT 41, Alkaline Phosphatase 72, Total Protein 8.2, Albumin 5.0, Globulin 3.2, Albumin/Globulin Ratio 1.6 10/22/23 16:25 10/22/23 16:25 Orders (Tests/Meds): ED MEDICATIONS Discontinued Medications Generic Name Dose Route Start Last Admin Trade Name Freq PRN Reason Stop Dose Admin Acetaminophen 1,000 mg 10/22/23 16:22 10/22/23 16:33 Acetaminophen 1,000mg/100ml Vial IV 10/22/23 16:23 Not Given ONCE ONE Diphenhydramine HCl 50 mg 10/22/23 17:24 10/22/23 17:34 Diphenhydramine 50mg/Ml Vial IV 10/22/23 17:25 50 mg ONCE ONE Administration Lactated Ringer's 1,000 mls @ 999 mls/hr 10/22/23 16:23 10/22/23 16:30 Lactated Ringer's 1000 Ml Bag IV 10/22/23 17:23 999 mls/hr .Q1H1M ONE Administration Iopamidol 100 ml 10/22/23 16:35 10/22/23 16:37 Iopamidol-370 (76%);100ml Bottle IV 10/22/23 16:36 100 ml ONCE ONE Administration Prochlorperazine Edisylate 5 mg 10/22/23 17:24 10/22/23 17:34 Prochlorperazine 10mg/2ml Vial IV 10/22/23 17:25 5 mg ONCE ONE Administration Sodium Chloride 50 ml 10/22/23 16:35 10/22/23 16:36 0.9 % Sodium Chloride 50 Ml Vial IV 10/22/23 16:36 50 ml ONCE ONE Administration Sodium Chloride 10 ml 10/22/23 16:35 10/22/23 16:37 Sodium Chloride 0.9% 10ml Syr (Rad Only) IV 10/22/23 16:36 10 ml ONCE ONE Administration ORDERS Category Date Time Status CT angio head Stat Cat Scan 10/22/23 16:[address] angio neck Stat Cat Scan 10/22/23 16:[address] head/brain wo con Stat Cat Scan 10/22/23 16:22 Completed CBC w/Auto Diff [Complete Blood Count Auto Diff] Stat Lab 10/22/23 16:25 Completed CMP [Comprehensive Metabolic Panel] Stat Lab 10/22/23 16:25 Completed Medical Decision Narrative: In summary patient is a 43-year-old male with past medical history described above who presents emergency department for evaluation of headache in the setting of recent subdural hematoma. Patient is hemodynamically stable nontoxic-appearing upon arrival, afebrile with a nonfocal neurologic exam. Differential includes worsening subdural hematoma, persistent headache secondary to original hematoma, among others. Workup to be conducted with immediate CT imaging and the head both noncontrasted and CT angiogram. Initial inventions include crystalloid bolus. Antiplatelet such as ibuprofen will be deferred, Compazine will be initially deferred given wanting accurate neuroassessment prior to CT imaging Patient has had Tylenol prior to arrival. Initial workup reviewed by me, hematologic labs are nonactionable. Noncontrasted CT scan of the head shows stable subdural parafalcine hematoma without acute hemorrhage or mass effect. CTA head and neck no acute pathology. Upon repeat evaluation patient had persistent headache however otherwise was well-appearing. Shared decision-making discussion was had at bedside and he wishes to proceed with empiric headache treatment. Patient will be given Compazine and diphenhydramine and watched for a brief amount of time. Upon repeat evaluation patient was well-appearing with partial resolution of symptoms. Given this patient is appropriate for outpatient management at this time and was given return precautions. Critical Care Critical Care Time Critical Care Time: No
[2023-10-22] MEDS: 0.9 % SODIUM CHLORIDE 50 ML VIAL IV (16:36)
[2023-10-22 16:37] LABS: Alanine Aminotransferase 41 U/L (12-78); Aspartate Amino Transferase 36 U/L (17-59); Blood Urea Nitrogen 16 mg/dl (9-20); Creatinine Clearance Estimated 102 mL/min (50-200); Estimated Glomerular Filt Rate 92 ml/min (>60); GFR (African American) 111 ML/MIN (>60)
[2023-10-22] MEDS: IOPAMIDOL-370 (76%);100ML BOTTLE 100 ML IV (16:37)
[2023-10-22] MEDS: SODIUM CHLORIDE 0.9% 10ML SYR (RAD ONLY) 10 ML IV (16:37)
[2023-10-22 16:38] LABS: Albumin/Globulin Ratio 1.6 (1.1-1.8); Alkaline Phosphatase 72 U/L (38-126); Anion Gap 13.1 mEq/L (5-15); Bilirubin,Total 0.8 mg/dl (0.2-1.3); Calcium 9.9 mg/dl (8.4-10.2); Carbon Dioxide 26 mmol/L (22.0-30.0); Globulin 3.2 g/dL (1.3-3.2); Glucose 109 mg/dl (74-100); Total Protein,Serum 8.2 g/dl (6.3-8.2)
--- NOTE | 2023-10-22 16:40 | PC.NURSE ---
PT RETURNED FROM CT
[2023-10-22 16:41] VITALS: BP 127/88; PULSE 73; O2SAT 99
[2023-10-22 17:00] VITALS: BP 120/86; PULSE 66; O2SAT 97
[2023-10-22 17:30] VITALS: BP 118/82; PULSE 63; O2SAT 96
[2023-10-22] MEDS: PROCHLORPERAZINE 10MG/2ML VIAL 5 MG IV (17:34)
[2023-10-22] MEDS: diphenhydrAMINE 50MG/ML VIAL 50 MG IV (17:34)
--- NOTE | 2023-10-22 17:55 | PC.NURSE ---
Rounded on pt. No needs voiced. Call light within reach and visitor at BS.
[2023-10-22 18:00] VITALS: BP 123/83; PULSE 57; O2SAT 95
[2023-10-22 18:25] VITALS: BP 123/83; PULSE 62; RESP 18; TEMP 36.8; O2SAT 98
== END 2023-10-22 18:29 | disposition home or self-care (01) ==
PROVIDERS: Emergency Provider Emergency Medicine; PCP Nurse Practitioner Family
DX: G44.89 Other headache syndrome (principal); R42 Dizziness and giddiness; R11.0 Nausea; I62.03 Nontraumatic chronic subdural hemorrhage; F17.210 Nicotine dependence, cigarettes, uncomplicated; K21.9 Gastro-esophageal reflux disease without esophagitis; E78.5 Hyperlipidemia, unspecified; I11.0 Hypertensive heart disease with heart failure; I50.20 Unspecified systolic (congestive) heart failure; I25.10 Atherosclerotic heart disease of native coronary artery without angina pectoris; Z95.5 Presence of coronary angioplasty implant and graft
CPT/HCPCS: 70450; 70496; 70498; 80053; 85025; 96361; 96374; 96375; 99285; J0131; J7120; Q9967

== ENCOUNTER 2023-11-03 11:11 | Emergency (ER) | payer MEDICAID, SELFPAY ==
[2023-11-03 11:13] VITALS: BP 128/89; PULSE 67; RESP 18; TEMP 36.6; O2SAT 97; BMI 25.0
[2023-11-03 11:18] VITALS: BP 128/89; PULSE 68; O2SAT 97
--- NOTE | 2023-11-03 11:24 | CT_ITS ---
FINAL REPORT CLINICAL HISTORY: recent SDH, maintenance scan COMPARISON: 10/22/2023 FINDINGS: Axial images of the head were obtained without contrast. Coronal reformatted images were also obtained.This study was performed with techniques to keep radiation doses as low as reasonably achievable (ALARA). Individualized dose reduction techniques using automated exposure control or adjustment of mA and/or kV according to the patient's size were employed. There has been interval improvement in a small right parafalcine subdural hematoma. There is no new hemorrhage. The ventricular size is within normal limits. There is no evidence of shift of the midline structures. No abnormal extra axial fluid collection is identified. No skull abnormality is seen on the bone window images. IMPRESSION: Interval improvement in small right parafalcine subdural hematoma. No new abnormality. Reviewed, Interpreted and Dictated by John Pope III, MD Transcribed by Cindi Marquis Authenticated and [facility]
[2023-11-03 11:30] VITALS: BP 111/79; PULSE 65; O2SAT 96
--- NOTE | 2023-11-03 11:31 | PC.NURSE ---
PT TO CT
--- NOTE | 2023-11-03 11:45 | PC.NURSE ---
DR FOSTER AT BEDSIDE
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
[2023-11-03 12:00] VITALS: BP 121/87; PULSE 64; O2SAT 96
[2023-11-03 12:30] VITALS: BP 100/71; PULSE 69; O2SAT 95
[2023-11-03 12:44] VITALS: BP 100/71; PULSE 73; RESP 18; TEMP 36.6; O2SAT 95
== END 2023-11-03 12:51 | disposition home or self-care (01) ==
PROVIDERS: Emergency Provider Emergency Medicine; PCP Nurse Practitioner Family
DX: I62.01 Nontraumatic acute subdural hemorrhage (principal); R41.0 Disorientation, unspecified; R42 Dizziness and giddiness; I11.0 Hypertensive heart disease with heart failure; I50.20 Unspecified systolic (congestive) heart failure; I25.119 Atherosclerotic heart disease of native coronary artery with unspecified angina pectoris; E78.5 Hyperlipidemia, unspecified; Z95.5 Presence of coronary angioplasty implant and graft; Z79.01 Long term (current) use of anticoagulants
CPT/HCPCS: 70450; 99284

== ENCOUNTER 2024-02-11 17:59 | Emergency (ER) | payer MEDICAID, SELFPAY ==
[2024-02-11 18:00] VITALS: BP 127/86; PULSE 65; RESP 20; TEMP 37.1; O2SAT 99; BMI 24.2
[2024-02-11 18:15] VITALS: BP 124/91; PULSE 75; O2SAT 98
--- NOTE | 2024-02-11 18:26 | ED_ITS ---
Discharge Plan Disposition Patient Disposition: Home, Self-Care Condition: Good Prescriptions Prescriptions: New prednisone 20 mg tablet 40 mg PO DAILY 4 Days Qty: 8 0RF methocarbamol 750 mg tablet 750 mg PO Q8H PRN (Reason: pain) Qty: 20 0RF ketorolac 10 mg tablet 10 mg PO Q8H PRN (Reason: pain) 3 Days Qty: 8 0RF No Action clopidogrel [Plavix] 75 mg tablet 75 mg PO DAILY Qty: 30 5RF levocetirizine [Xyzal] 5 mg tablet 5 mg PO HS Qty: 90 3RF prochlorperazine maleate [Compazine] 10 mg tablet 10 mg PO Q8H PRN (Reason: nausea and vomiting) Qty: 30 0RF ondansetron 4 mg tablet,disintegrating 4 mg PO Q6H PRN (Reason: nausea and vomiting) Qty: 30 1RF Jardiance 10 mg tablet See Rx Instructions .ROUTE .COMPLEX Qty: 90 1RF Dose Instruction: TAKE ONE TABLET BY MOUTH EVERY DAY Rx Instructions: TAKE ONE TABLET BY MOUTH EVERY DAY atorvastatin 80 mg tablet See Rx Instructions .ROUTE .COMPLEX Qty: 90 3RF Dose Instruction: TAKE ONE TABLET BY MOUTH EVERY DAY AT BEDTIME Rx Instructions: TAKE ONE TABLET BY MOUTH EVERY DAY AT BEDTIME aspirin 81 mg tablet,delayed release (DR/EC) See Rx Instructions .ROUTE .COMPLEX Qty: 90 3RF Dose Instruction: TAKE ONE TABLET BY MOUTH EVERY DAY FOR heart disease Rx Instructions: TAKE ONE TABLET BY MOUTH EVERY DAY FOR heart disease Entresto 49-51 mg tablet 1 tab PO BID Qty: 180 1RF spironolactone 25 mg tablet See Rx Instructions .ROUTE .COMPLEX Qty: 90 2RF Dose Instruction: TAKE ONE TABLET BY MOUTH EVERY DAY Rx Instructions: TAKE ONE TABLET BY MOUTH EVERY DAY pantoprazole 40 mg tablet,delayed release (DR/EC) See Rx Instructions .ROUTE .COMPLEX Qty: 90 1RF Dose Instruction: TAKE ONE TABLET BY MOUTH EVERY DAY FOR gerd Rx Instructions: TAKE ONE TABLET BY MOUTH EVERY DAY FOR gerd carvedilol 6.25 mg tablet See Rx Instructions .ROUTE .COMPLEX Qty: 180 3RF Dose Instruction: TAKE ONE TABLET BY MOUTH TWICE DAILY --TAKE WITH A MEAL/FOOD-- Rx Instructions: TAKE ONE TABLET BY MOUTH TWICE DAILY --TAKE WITH A MEAL/FOOD-- Referrals Follow up/Referrals: Martha Andrews APRN [Primary Care Provider] - See instructions Activity Restrictions/Add. Instructions Additional Instructions/Restrictions: You were evaluated in the emergency department today. 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 You may also take Tylenol every 4-6 hours at home as needed for pain. Follow-up closely with your primary care provider for reassessment. Return to the emergency department for new or worsening symptoms. Clinical Impressions Clinical Impression: Lumbar back sprain Stand Alone Forms Stand Alone Forms: Work/School Release Instructions Patient Instructions: DI for Low Back Pain Print Language Print Language: Bol[place]ian Discharge ED Provider: Mona Godoy General Adult HPI General Chief complaint: Back Pain/Injury Stated complaint: back pain Time Seen by Provider: 02/11/24 18:06 Mode of Arrival: Wheelchair Source of Information: Patient and Spouse Limitations: No Limitations Description of Symptoms (Recalled from ER Triage Doc. by RN): pt was throwing haybales yesterday and now has left low back pain, pt can move all extremeties and knows when he has to use the bathroom History of Present Illness HPI narrative: This patient is a 43-year-old male with a history of CAD status post stenting and MARCO ANTONIO presenting to the emergency department for evaluation with concern for left-sided low back pain. Patient reports that yesterday, he was throwing hay alexis and today noted that he has had worsening left-sided low back pain. It is nonradiating. No numbness, tingling, saddle anesthesia, incontinence, retention, or other concerns. No fevers, chills, weight loss, or other constitutional symptoms. Is worse with movement and is tender to palpation. He states that because of the pain, he is having a hard time getting up and walking around. No specific falls or traumatic injuries noted, but he thinks he strained it while throwing the hay alexis. No other concerns noted at this time. Related Data Previous Rx's ?Medication ?Instructions ?Recorded empagliflozin 10 mg tablet See Rx Instructions .Route 08/29/23 (Jardiance) .COMPLEX #90 tabs levocetirizine 5 mg tablet (Xyzal) 5 mg PO HS #90 tabs 09/01/23 aspirin 81 mg tablet,delayed See Rx Instructions .Route 09/23/23 release .COMPLEX #90 tabs atorvastatin 80 mg tablet See Rx Instructions .Route 09/23/23 .COMPLEX #90 tabs ondansetron 4 mg disintegrating 4 mg PO Q6H PRN nausea and 10/23/23 tablet vomiting #30 tabs prochlorperazine maleate 10 mg 10 mg PO Q8H PRN nausea and 10/23/23 tablet (Compazine) vomiting #30 tabs clopidogrel 75 mg tablet (Plavix) 75 mg PO DAILY #30 tabs 11/11/23 sacubitril 49 mg-valsartan 51 mg 1 tab PO BID #180 tabs 12/22/23 tablet (Entresto) spironolactone 25 mg tablet See Rx Instructions .Route 12/23/23 .COMPLEX #90 tabs carvedilol 6.25 mg tablet See Rx Instructions .Route 01/19/24 .COMPLEX #180 tabs pantoprazole 40 mg tablet,delayed See Rx Instructions .Route 01/19/24 release .COMPLEX #90 tabs ketorolac 10 mg tablet 10 mg PO Q8H PRN pain 3 days #8 02/11/24 tabs methocarbamol 750 mg tablet 750 mg PO Q8H PRN pain #20 tabs 02/11/24 prednisone 20 mg tablet 40 mg (2 x 20 mg) PO DAILY 4 days 02/11/24 #8 tabs Allergies Allergy/AdvReac Type Severity Reaction Status Date / Time codeine AdvReac Verified 12/11/23 13:25 isosorbide AdvReac headache Verified 12/11/23 13:25 morphine AdvReac Verified 12/11/23 13:25 ranolazine AdvReac Mild depression Uncoded 12/11/23 13:25 PFSH PFSH Disclaimer: The information contained in this section may have been updated after the patient was seen, as this information can be updated by other users. Medical History Left otitis media Acute effusion of right ear Abnormal findings on diagnostic imaging of heart and coronary circulation Illness STEMI (ST elevation myocardial infarction) Chest pain Anxiety Angina pectoris Snoring Difficulty sleeping Fatigue Typical angina Abnormal result of cardiovascular function study Chest pain Gastroesophageal reflux disease Dyspnea Renal lesion Elevated lipase Atypical chest pain Vasovagal syncope Dizziness Angina pectoris HLD (hyperlipidemia) Chest pain CAD (coronary artery disease) Cardiomyopathy Systolic heart failure Tobacco use Low cardiac output syndrome LVH (left ventricular hypertrophy) COVID-19 Left elbow pain STEMI (ST elevation myocardial infarction) Exposure to COVID-19 virus Headache Left arm numbness Foot contusion Surgical History History of heart artery stent H/O cardiac catheterization Family History Father Family history of myocardial infarction Grandfather Family history of myocardial infarction Grandmother Family history of myocardial infarction Other Family history of hyperlipidemia Family history of hypertension Family history of stroke Social History Smoking Status: Former smoker alcohol intake: never substance use type: marijuana current occupational status: employed and unemployed Travel in the last 8 weeks: None household members: family housing: house marital status: single current occupation: [employer] current occupational exposures/hazards: No caffeine: Yes Other Medical History Have you received the Flu Vaccine for this season: No Have you received the Pneumonia Vaccine: No ROS Obtained: Yes All systems reviewed & no additional complaints except as documented Physical Exam General General appearance: alert and in no apparent distress Head Head exam: atraumatic and normocephalic Eye Eye exam: Present normal appearance, PERRL and EOMI ENT ENT exam: Present normal exam, normal oropharynx, mucous membranes moist and normal external ear exam Neck Neck exam: Present normal inspection, full ROM and trachea midline; Absent tenderness Chest Chest inspection: Present normal inspection and symmetric chest wall rise; Absent tenderness Respiratory Respiratory exam: Present normal lung sounds bilaterally; Absent respiratory distress, wheezes, stridor or accessory muscle use Cardiovascular Cardiovascular exam: Present regular rate and normal rhythm Abdominal Exam Abdominal exam: Present soft; Absent distention, tenderness or guarding Extremities Exam Extremities exam: Present normal inspection, full ROM and normal capillary refill; Absent tenderness or edema Back Exam Back exam: Present tenderness, muscle spasm and paraspinal tenderness; Absent full ROM (Limited range of motion of the low back secondary to pain), vertebral tenderness, sciatic notch tenderness (R) or sciatic notch tenderness (L) Neurological Exam Neurological exam: Present alert, oriented X3 and CN II-XII intact; Absent motor sensory deficit Psychiatric Psychiatric exam: Present normal affect and normal mood Skin Skin exam: Present warm and dry Medical Decision Making Medical Records Medical records reviewed: Yes I reviewed the patient's medical records. Screening: Per USPSTF and CDC recommendations, given the prevalence of disease in our region, it is our hospital?s policy to screen for HIV and viral Hepatitis for all patients aged 18 and over and those with ongoing risk factors. Scott Inquiry Pt receiving controlled substance: No Vital Signs: 02/11/24 18:00 02/11/24 18:15 02/11/24 18:31 Temperature 98.7 F Temperature Source Oral Pulse Rate 75 71 Pulse Rate [Right Radial] 65 Respiratory Rate 20 Blood Pressure 124/91 H 112/76 Blood Pressure [Right Arm] 127/86 Blood Pressure Mean 104 Blood Pressure Mean [Right Arm] 99 02 Sat by Pulse Oximetry 99 98 98 Oxygen Delivery Method Room Air Room Air Room Air 02/11/24 19:00 02/11/24 20:34 Temperature 98.5 F Temperature Source Pulse Rate 66 68 Pulse Rate [Right Radial] Respiratory Rate 20 Blood Pressure 106/71 L 138/79 Blood Pressure [Right Arm] Blood Pressure Mean Blood Pressure Mean [Right Arm] 02 Sat by Pulse Oximetry 95 Oxygen Delivery Method Room Air Room Air Lab Data Lab results reviewed: Yes I reviewed the patient's lab results. Orders (Tests/Meds): ED MEDICATIONS Discontinued Medications Generic Name Dose Route Start Last Admin Trade Name Brigitte PRN Reason Stop Dose Admin Acetaminophen 1,000 mg 02/11/24 18:21 02/11/24 18:29 Acetaminophen 500mg Tab PO 02/11/24 18:22 1,000 mg ONCE ONE Administration Dexamethasone Sodium Phosphate 10 mg 02/11/24 19:40 02/11/24 19:53 Dexamethasone 4mg/Ml 1ml Vial IM 02/11/24 19:41 10 mg ONCE ONE Administration Diazepam 2.5 mg 02/11/24 18:21 02/11/24 18:29 Diazepam 5mg Tablet PO 02/11/24 18:22 2.5 mg ONCE ONE Administration Diazepam 2.5 mg 02/11/24 19:41 02/11/24 19:54 Diazepam 5mg Tablet PO 02/11/24 19:42 2.5 mg ONCE ONE Administration Ketorolac Tromethamine 30 mg 02/11/24 18:21 02/11/24 18:28 Ketorolac 30mg/Ml Vial IM 02/11/24 18:22 30 mg ONCE ONE Administration Lidocaine 1 each 02/11/24 18:21 02/11/24 18:28 Lidocaine 5% Transdermal Patch TP 02/11/24 18:22 1 each ONCE ONE Administration Ondansetron HCl 4 mg 02/11/24 18:21 02/11/24 18:29 Ondansetron 4mg Odt SL 02/11/24 18:22 4 mg ONCE ONE Administration Medical Decision Narrative: In summary, this patient is a 43-year-old male presenting to the Emergency Department for evaluation of left-sided low back pain after throwing hay alexis yesterday. Differential diagnoses considered include but are not limited to musculoskeletal strain/sprain, fracture, contusion. Ruling out the most morbid conditions drove assessment. On exam, the patient is very well-appearing. He has reproducible left-sided paraspinal tenderness to palpation and pain with range of motion, but no alarm findings such as fevers, weight loss, numbness, tingling, urinary symptoms, or incontinence. His abdominal exam is benign. He is neurologically intact in his lower extremities. 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 We opted for medical management of musculoskeletal strain/sprain. He was given IM Toradol, oral Tylenol, oral Valium, oral Zofran, and topical Lidoderm patch for symptomatic improvement of pain. On reassessment, the patient had some improvement but states that he still hurting. He is able to ambulate. I gave him dexamethasone as well as an additional dose of Valium for further symptomatic improvement. Ultimately, I feel he is very low risk for any significant complications of lumbar strain and is appropriate for discharge home with instruction for supportive management. I prescribed prescription for prednisone, Robaxin, and Toradol. Strict return precautions were given and the patient was discharged after all questions were answered. Critical Care Critical Care Time Critical Care Time: No
[2024-02-11] MEDS: LIDOCAINE 5% TRANSDERMAL PATCH 1 EACH TP (18:28)
[2024-02-11] MEDS: KETOROLAC 30MG/ML VIAL 30 MG IM (18:28)
[2024-02-11] MEDS: ACETAMINOPHEN 500MG TAB 1000 MG PO (18:29)
[2024-02-11] MEDS: ONDANSETRON 4MG ODT 4 MG SL (18:29)
[2024-02-11] MEDS: diazePAM 5MG TABLET 2.5 MG PO ×2 (18:29→19:54)
[2024-02-11 18:31] VITALS: BP 112/76; PULSE 71; O2SAT 98
[2024-02-11 19:00] VITALS: BP 106/71; PULSE 66; O2SAT 95
[2024-02-11] MEDS: DEXAMETHASONE 4MG/ML 1ML VIAL 10 MG IM (19:53)
--- NOTE | 2024-02-11 20:19 | PC.NURSE ---
pt ambulated 10 ft in room
[2024-02-11 20:34] VITALS: BP 138/79; PULSE 68; RESP 20; TEMP 36.9; O2SAT 98
== END 2024-02-11 20:34 | disposition home or self-care (01) ==
PROVIDERS: Emergency Provider Emergency Medicine; PCP Nurse Practitioner Family
DX: S33.5XXA Sprain of ligaments of lumbar spine, initial encounter (principal); M54.50 Low back pain, unspecified; X50.0XXA Overexertion from strenuous movement or load, initial encounter; Y93.89 Activity, other specified; Y92.89 Other specified places as the place of occurrence of the external cause
CPT/HCPCS: 96372; 99283; J1100; J1885; Q0162

== ENCOUNTER 2024-02-20 18:17 | Emergency (ER) | payer MEDICAID, SELFPAY ==
[2024-02-20 18:27] VITALS: BP 126/85; PULSE 60; RESP 16; TEMP 36.6; O2SAT 99; BMI 25.0
--- NOTE | 2024-02-20 18:30 | ED_ITS ---
<Statement entered by Mona Godoy DO - 02/20/24 19:48> I was consulted by the SASHA, and we discussed the complexity of the problems being addressed. I approved the treatment and management plan for this patient's care in the emergency department, thus performing a substantive portion of the medical decision making. Mona Godoy DO Discharge Plan Disposition Patient Disposition: Home, Self-Care Condition: Good Prescriptions Prescriptions: No Action clopidogrel [Plavix] 75 mg tablet 75 mg PO DAILY Qty: 30 5RF levocetirizine [Xyzal] 5 mg tablet 5 mg PO HS Qty: 90 3RF prochlorperazine maleate [Compazine] 10 mg tablet 10 mg PO Q8H PRN (Reason: nausea and vomiting) Qty: 30 0RF ondansetron 4 mg tablet,disintegrating 4 mg PO Q6H PRN (Reason: nausea and vomiting) Qty: 30 1RF Jardiance 10 mg tablet See Rx Instructions .ROUTE .COMPLEX Qty: 90 1RF Dose Instruction: TAKE ONE TABLET BY MOUTH EVERY DAY Rx Instructions: TAKE ONE TABLET BY MOUTH EVERY DAY atorvastatin 80 mg tablet See Rx Instructions .ROUTE .COMPLEX Qty: 90 3RF Dose Instruction: TAKE ONE TABLET BY MOUTH EVERY DAY AT BEDTIME Rx Instructions: TAKE ONE TABLET BY MOUTH EVERY DAY AT BEDTIME aspirin 81 mg tablet,delayed release (DR/EC) See Rx Instructions .ROUTE .COMPLEX Qty: 90 3RF Dose Instruction: TAKE ONE TABLET BY MOUTH EVERY DAY FOR heart disease Rx Instructions: TAKE ONE TABLET BY MOUTH EVERY DAY FOR heart disease Entresto 49-51 mg tablet 1 tab PO BID Qty: 180 1RF spironolactone 25 mg tablet See Rx Instructions .ROUTE .COMPLEX Qty: 90 2RF Dose Instruction: TAKE ONE TABLET BY MOUTH EVERY DAY Rx Instructions: TAKE ONE TABLET BY MOUTH EVERY DAY pantoprazole 40 mg tablet,delayed release (DR/EC) See Rx Instructions .ROUTE .COMPLEX Qty: 90 1RF Dose Instruction: TAKE ONE TABLET BY MOUTH EVERY DAY FOR gerd Rx Instructions: TAKE ONE TABLET BY MOUTH EVERY DAY FOR gerd carvedilol 6.25 mg tablet See Rx Instructions .ROUTE .COMPLEX Qty: 180 3RF Dose Instruction: TAKE ONE TABLET BY MOUTH TWICE DAILY --TAKE WITH A MEAL/FOOD-- Rx Instructions: TAKE ONE TABLET BY MOUTH TWICE DAILY --TAKE WITH A MEAL/FOOD-- prednisone 20 mg tablet 40 mg PO DAILY 4 Days Qty: 8 0RF methocarbamol 750 mg tablet 750 mg PO Q8H PRN (Reason: pain) Qty: 20 0RF ketorolac 10 mg tablet 10 mg PO Q8H PRN (Reason: pain) 3 Days Qty: 8 0RF Referrals Follow up/Referrals: Martha Andrews APRN [Primary Care Provider] - See instructions Activity Restrictions/Add. Instructions Additional Instructions/Restrictions: Increase fluids and rest. Take meds as you normally do at home. If any other problems or concerns please return to the ED immediately Clinical Impressions Clinical Impression: Headache Stand Alone Forms Stand Alone Forms: Work/School Release Instructions Patient Instructions: DI for Headache, DI for Dizziness-Nonvertigo Print Language Print Language: Bengali Discharge ED Provider: Mona Godoy General Adult HPI General Chief complaint: Weakness Stated complaint: dizziness,SWIFT Time Seen by Provider: 02/20/24 18:21 History of Present Illness HPI narrative: 43-year-old male presents to the ED today with complaint of headache for the past couple days along with dizziness and a warm feeling over the past few hours. Patient says he was about to do a haunted house and just started feeling dizzy and warm so he came to the ER for evaluation. He has had a subdural in the past. He was here in the ED recently for back pain. He says he twisted his back and was doing something he should not have been doing. He says the headache has improved some but still hurts. He does have also have history of stents in his heart. Related Data Previous Rx's ?Medication ?Instructions ?Recorded empagliflozin 10 mg tablet See Rx Instructions .Route 08/29/23 (Jardiance) .COMPLEX #90 tabs levocetirizine 5 mg tablet (Xyzal) 5 mg PO HS #90 tabs 09/01/23 aspirin 81 mg tablet,delayed See Rx Instructions .Route 09/23/23 release .COMPLEX #90 tabs atorvastatin 80 mg tablet See Rx Instructions .Route 09/23/23 .COMPLEX #90 tabs ondansetron 4 mg disintegrating 4 mg PO Q6H PRN nausea and 10/23/23 tablet vomiting #30 tabs prochlorperazine maleate 10 mg 10 mg PO Q8H PRN nausea and 06/27/24 tablet (Compazine) vomiting #30 tabs clopidogrel 75 mg tablet (Plavix) 75 mg PO DAILY #30 tabs 11/11/23 sacubitril 49 mg-valsartan 51 mg 1 tab PO BID #180 tabs 12/22/23 tablet (Entresto) spironolactone 25 mg tablet See Rx Instructions .Route 12/23/23 .COMPLEX #90 tabs carvedilol 6.25 mg tablet See Rx Instructions .Route 01/19/24 .COMPLEX #180 tabs pantoprazole 40 mg tablet,delayed See Rx Instructions .Route 01/19/24 release .COMPLEX #90 tabs ketorolac 10 mg tablet 10 mg PO Q8H PRN pain 3 days #8 02/11/24 tabs methocarbamol 750 mg tablet 750 mg PO Q8H PRN pain #20 tabs 02/11/24 prednisone 20 mg tablet 40 mg (2 x 20 mg) PO DAILY 4 days 02/11/24 #8 tabs Allergies Allergy/AdvReac Type Severity Reaction Status Date / Time codeine AdvReac Other Verified 02/20/24 18:32 isosorbide AdvReac headache Verified 02/20/24 18:32 morphine AdvReac Other Verified 02/20/24 18:32 ranolazine AdvReac Mild depression Uncoded 12/11/23 13:25 PFSH PFS Disclaimer: The information contained in this section may have been updated after the patient was seen, as this information can be updated by other users. Medical History Left otitis media Acute effusion of right ear Abnormal findings on diagnostic imaging of heart and coronary circulation Illness STEMI (ST elevation myocardial infarction) Chest pain Anxiety Angina pectoris Snoring Difficulty sleeping Fatigue Typical angina Abnormal result of cardiovascular function study Chest pain Gastroesophageal reflux disease Dyspnea Renal lesion Elevated lipase Atypical chest pain Vasovagal syncope Dizziness Angina pectoris HLD (hyperlipidemia) Chest pain CAD (coronary artery disease) Cardiomyopathy Systolic heart failure Tobacco use Low cardiac output syndrome LVH (left ventricular hypertrophy) COVID-19 Left elbow pain STEMI (ST elevation myocardial infarction) Exposure to COVID-19 virus Headache Left arm numbness Foot contusion Surgical History History of heart artery stent H/O cardiac catheterization Family History Father Family history of myocardial infarction Grandfather Family history of myocardial infarction Grandmother Family history of myocardial infarction Other Family history of hyperlipidemia Family history of hypertension Family history of stroke Social History Smoking Status: Current every day smoker alcohol intake: never substance use type: marijuana current occupational status: employed and unemployed Travel in the last 8 weeks: None household members: family housing: house marital status: single current occupation: [employer] current occupational exposures/hazards: No caffeine: Yes Other Medical History Have you received the Flu Vaccine for this season: No Have you received the Pneumonia Vaccine: No ROS Obtained: Yes Systems reviewed as appropriate & no additional complaints except as documented Constitutional Constitutional: Reports as per HPI Physical Exam General General appearance: alert and in no apparent distress Head Head exam: atraumatic and normocephalic Eye Eye exam: Present normal appearance, PERRL and EOMI ENT ENT exam: Present normal exam, normal oropharynx and mucous membranes moist Neck Neck exam: Present normal inspection, full ROM and trachea midline Chest Chest inspection: Present normal inspection Respiratory Respiratory exam: Present normal lung sounds bilaterally Cardiovascular Cardiovascular exam: Present regular rate, normal rhythm, normal heart sounds, +S1 and +S2 Abdominal Exam Abdominal exam: Present soft and normal bowel sounds Extremities Exam Extremities exam: Present normal inspection, full ROM and normal capillary refill Neurological Exam Neurological exam: Present alert, oriented X3 and normal gait Psychiatric Psychiatric exam: Present anxious Skin Skin exam: Present warm, dry and intact Medical Decision Making Medical Records Screening: Per USPSTF and CDC recommendations, given the prevalence of disease in our region, it is our hospital?s policy to screen for HIV and viral Hepatitis for all patients aged 18 and over and those with ongoing risk factors. Scott Inquiry Pt receiving controlled substance: No Scott was queried for this patient: No Vital Signs: 02/20/24 18:27 02/20/24 19:35 Temperature 98 F 98.0 F Temperature Source Oral Oral Pulse Rate 66 Pulse Rate [Left] 60 Respiratory Rate 16 18 Blood Pressure 105/74 L Blood Pressure [Right Arm] 126/85 Blood Pressure Mean [Right Arm] 98 Blood Pressure Source Automatic Cuff Blood Pressure Source [Right Arm] Automatic Cuff Blood Pressure Position [Right Arm] Sitting 02 Sat by Pulse Oximetry 99 Oxygen Delivery Method Room Air Room Air Lab Data Lab Results 02/20/24 18:40: WBC 8.0, RBC 5.07, Hgb 15.7, Hct 44.9, MCV 88.7, MCH 31.0, MCHC 34.9, RDW 13.4, Plt Count 242, MPV 7.9, Neut % (Auto) 70.3, Lymph % (Auto) 19.6, [place] % (Auto) 6.8, Eos % (Auto) 2.2, Baso % (Auto) 1.1, Neut # (Auto) 5.6, Lymph # (Auto) 1.6, [place] # (Auto) 0.5, Eos # (Auto) 0.2, Baso # (Auto) 0.1, Sodium 137, Potassium 3.9, Chloride 106, Carbon Dioxide 28, Anion Gap 6.9, BUN 15, Creatinine 0.90, Estimated Creat Clear 105, Estimated GFR 92, Est GFR ( Amer) 111, Glucose 93, Calcium 8.7, Magnesium 2.0, Total Bilirubin 0.7, AST 44, ALT 58, Alkaline Phosphatase 69, Troponin I < 0.01, Total Protein 6.0 L D, Albumin 3.9, Globulin 2.1, Albumin/Globulin Ratio 1.9 H 02/20/24 18:40 02/20/24 18:40 Orders (Tests/Meds): ED MEDICATIONS Discontinued Medications Generic Name Dose Route Start Last Admin Trade Name Freq PRN Reason Stop Dose Admin Acetaminophen 1,000 mg 02/20/24 18:31 02/20/24 18:47 Acetaminophen 1,000mg/100ml Vial IV 02/20/24 18:32 1,000 mg ONCE ONE Administration Diphenhydramine HCl 25 mg 02/20/24 18:31 02/20/24 18:47 Diphenhydramine 50mg/Ml Vial IV 02/20/24 18:32 25 mg ONCE ONE Administration Ondansetron HCl 4 mg 02/20/24 18:31 02/20/24 18:47 Ondansetron 4mg/2ml Vial IV 02/20/24 18:32 4 mg ONCE ONE Administration Sodium Chloride 10 ml 02/20/24 18:42 Sodium Chloride 0.9% 10ml Flush Syringe IV 03/21/24 18:41 NEEDED PRN Maintain IV Site ORDERS Category Date Time Status CT head/brain wo con Stat Cat Scan 02/20/24 18:31 Completed CBC w/Auto Diff [Complete Blood Count Auto Diff] Stat Lab 02/20/24 18:40 Completed Comprehensive Metabolic Panel Stat Lab 02/20/24 18:40 Completed HIV (1&2) Antibody Rapid Stat Lab 02/20/24 18:40 Received Hep C Ab with Reflex to RNA Stat Lab 02/20/24 18:40 Received Magnesium Stat Lab 02/20/24 18:40 Completed Trop I [Troponin I] Stat Lab 02/20/24 18:40 Completed Medical Decision Narrative: Insert review patient is a 43-year-old male presenting to the emergency department for evaluation of headache and dizziness. Patient is hemodynamically stable and nontoxic-appearing upon arrival, afebrile. Differential diagnosis includes migraine, headache, among others. Workup will be conducted with hematologic labs, CT of brain]. Initial inventions include crystalloid bolus, Tylenol IV and Benadryl with some Zofran. Initial workup reviewed by me hematologic labs are unremarkable Imaging informally interpreted by me and remarkable for nothing acute Formal imaging read remarkable for nothing acute upon repeat evaluation patient's pain is improved, appears better perfused. Patient feels much improved and is wanting to go home. Critical Care Critical Care Time Critical Care Time: No
--- NOTE | 2024-02-20 18:31 | CT_ITS ---
PROCEDURE INFORMATION: Exam: CT Head Without Contrast Exam date and time: 02/20/2024 6:44 PM Age: 43 years old Clinical indication: Pain; Headache not specified TECHNIQUE: Imaging protocol: Computed tomography of the head without contrast. Radiation optimization: All CT scans at this facility use at least one of these dose optimization techniques: automated exposure control; mA and/or kV adjustment per patient size (includes targeted exams where dose is matched to clinical indication); or iterative reconstruction. COMPARISON: CT HEAD/BRAIN WO CON 11/03/2023 11:35 AM FINDINGS: Brain: No hemorrhage. Unremarkable white matter. No mass effect. Cerebral ventricles: No ventriculomegaly. Paranasal sinuses: Visualized sinuses are unremarkable. No fluid levels. Mastoid air cells: Visualized mastoid air cells are well aerated. Bones: Unremarkable. No acute fracture. Soft tissues: Unremarkable. IMPRESSION: No acute intracranial abnormality.
[2024-02-20 18:47] LABS: Basophils # 0.1 K/mm3 (0-0.2); Basophils % 1.1 % (0.1-2.0); Eosinophils # 0.2 K/mm3 (0.0-0.4); Eosinophils % 2.2 % (0.1-12.0); Hematocrit 44.9 % (42.0-52.0); Hemoglobin 15.7 g/dL (14.1-18.0); Lymphocytes # 1.6 K/mm3 (0.7-4.5); Lymphocytes % 19.6 % (10-50); Mean Corpuscular HGB Conc 34.9 g/dL (31.8-35.4); Mean Corpuscular Volume 88.7 fl (80-94); Mean Platelet Volume 7.9 fl (7.4-10.4); Monocytes # 0.5 K/mm3 (0.1-1.0); Monocytes % 6.8 % (1.7-9.3); Neutrophils # 5.6 K/mm3 (1.8-7.8); Neutrophils % 70.3 % (37.0-80.0); Platelet Count 242 K/mm3 (142-424); Red Blood Count 5.07 M/mm3 (4.60-6.20); Red Cell Distribution Width 13.4 % (11.5-17.5)
[2024-02-20] MEDS: diphenhydrAMINE 50MG/ML VIAL 25 MG IV (18:47)
[2024-02-20] MEDS: ONDANSETRON 4MG/2ML VIAL 4 MG IV (18:47)
[2024-02-20] MEDS: ACETAMINOPHEN 1,000MG/100ML VIAL 1000 MG IV (18:47)
[2024-02-20 18:59] LABS: Alanine Aminotransferase 58 U/L (12-78); Albumin Level 3.9 g/dl (3.5-5.0); Albumin/Globulin Ratio 1.9 (1.1-1.8); Alkaline Phosphatase 69 U/L (38-126); Anion Gap 6.9 mEq/L (5-15); Aspartate Amino Transferase 44 U/L (17-59); Bilirubin,Total 0.7 mg/dl (0.2-1.3); Blood Urea Nitrogen 15 mg/dl (9-20); Calcium 8.7 mg/dl (8.4-10.2); Carbon Dioxide 28 mmol/L (22.0-30.0); Chloride 106 mmol/L (98-107); Creatinine Clearance Estimated 105 mL/min (50-200); Estimated Glomerular Filt Rate 92 ml/min (>60); GFR (African American) 111 ML/MIN (>60); Globulin 2.1 g/dL (1.3-3.2); Glucose 93 mg/dl (74-100); Potassium 3.9 mmoL/L (3.5-5.1); Sodium 137 mmol/L (136-145)
[2024-02-20 19:12] LABS: Troponin I < 0.01 ng/ml (0.00-0.034)
[2024-02-20 19:35] VITALS: BP 105/74; PULSE 66; RESP 18; TEMP 36.7; O2SAT 95
[2024-02-20 21:39] LABS: HIV (1&2) Antibody Rapid NONREACTIVE (NONREACTIVE)
[2024-02-22 08:22] LABS: HCV Ab Non Reactive (Non Reactive)
== END 2024-02-20 20:11 | disposition home or self-care (01) ==
PROVIDERS: Nurse Practitioner; Emergency Provider Emergency Medicine; PCP Nurse Practitioner Family
DX: R51.9 Headache, unspecified (principal); R42 Dizziness and giddiness
CPT/HCPCS: 70450; 80053; 83735; 84484; 85025; 86803; 87389; 96374; 96375; 99284; J0131; J1200; J2405

== ENCOUNTER 2024-02-26 17:32 | Outpatient (CLI) | payer MEDICAID, SELFPAY ==
[2024-03-02 00:08] LABS: Testosterone, Total, LC/MS 353 ng/dL (.)
== END 2024-02-26 23:59 | disposition home or self-care (01) ==
LOC: LAB.DROPOF 17:32
PROVIDERS: PCP Nurse Practitioner Family; Visit Provider Nurse Practitioner Family
DX: E29.1 Testicular hypofunction (principal)
CPT/HCPCS: 84403

== ENCOUNTER 2024-06-21 12:48 | Outpatient (CLI) | payer MEDICAID, SELFPAY ==
--- NOTE | 2024-06-21 13:13 | CA_ITS ---
APPROVED REPORT EXAM: Comprehensive 2D, Doppler, and color-flow Echocardiogram Product Tester Fiberglass: Leatha Baez RVT Ht: 5 ft 6 in Wt: 156lbs BSA: 1.80 BP: 119/81 mmHg Indications: HFrEF,CAD,CM,SMOKER,HTN,HLD 2D Dimensions LA Volume 23.00 mL LA Volume Index 12.78 mL/m2 (M/F) 16-34 M-Mode Dimensions RVDd 2.93 cm (0.9-2.6) LA Diam 3.18 cm (1.9-4.0) LVDd 4.47 cm (3.5-5.7) LVDs 3.22 cm (3.5-5.7) IVSd 0.89 cm (0.6-1.1) PWd 0.61 cm (0.6-1.1) EF (Teich) 54.30% FS 28.00% EDV (Teich) 91.00 mL TAPSE 1.65 (<1.7) ESV (Teich) 41.60 mL LV Diastology E Decel Time 210 (160-240 msec) E/A Ratio 0.7 Aortic Valve ADARSH Index 1.24 cm2/m2 AoV Peak Andrea. 104.0 (50-130 cm/s) AO Peak GR. 4.30 mmHg AO Mean GR. 2.40 (<5 mmHg) AO VTI 19.6 (18-25 cm) ADARSH (VTI) 2.29 (2.5-4.5 cm2) Mitral Valve MV E Max Andrea. 48.0 (40-130 cm/s) MV A Velocity 70.0 (40-130 cm/s) E/A Ratio 0.69 MV PHT 62.0 ms Pulmonary Valve PV Peak Velocity 66.0 (50-150 cm/s) Tricuspid Valve TR P. Velocity 245.00 cm/s RAP Estimate 10.00 mmHg RVSP 33.90 mmHg Left Ventricle The left ventricle is normal size. The left ventricular systolic function is mildly reduced. There is increased LV wall thickness. There is mild global hypokinesis present. There is moderate hypokinesis of the septal and anteroseptal LV burris. Grade 1 diastolic dysfunction. LVEF is 45%. Right Ventricle The right ventricle is mildly dilated. Right ventricle is mildly hypokinetic. Atria The left atrium size is normal. The right atrium size is normal. There is no Doppler evidence of interatrial shunt. Aortic Valve Aortic valve is mildly thickened. There is no aortic valvular stenosis. Trace aortic regurgitation. Mitral Valve The mitral valve leaflets are mildly thickened. No evidence of mitral valve stenosis. Mild mitral regurgitation. Tricuspid Valve The tricuspid valve leaflets are thin and pliable. Trace tricuspid regurgitation. There is insufficient TR jet to estimate RVSP. Pulmonic Valve The pulmonary valve is normal in structure. Mild pulmonic regurgitation. Great Vessels The aortic root is normal in size. IVC is normal in size and collapses >50% with inspiration. Pericardium There is no pericardial effusion. Other Information Study Quality: Technically Difficult Conclusion Technically difficult study due to poor acoustic windows. Mildly reduced LV systolic function (LVEF 45%). Mild RV dilation with mild reduction in RV function. Mild MR, mild PI. In the setting of technically difficult study, future TTE evaluations are suggested with administration of ultrasound enhancing agent. Electronically signed by : Susanna Barry MD 06/27/2024 21:26:46
[2024-06-21 13:17] LABS: Basophils # 0.1 K/mm3 (0-0.2); Basophils % 0.8 % (0.1-2.0); Eosinophils # 0.1 K/mm3 (0.0-0.4); Eosinophils % 0.7 % (0.1-12.0); Hematocrit 47.9 % (42.0-52.0); Hemoglobin 16.1 g/dL (14.1-18.0); Lymphocytes # 1.4 K/mm3 (0.7-4.5); Mean Corpuscular HGB Conc 33.6 g/dL (31.8-35.4); Mean Corpuscular Hemoglobin 29.8 pg (27.0-31.2); Mean Corpuscular Volume 88.7 fl (80-94); Mean Platelet Volume 10.9 fl (7.4-10.4); Monocytes # 0.5 K/mm3 (0.1-1.0); Monocytes % 6.8 % (1.7-9.3); Neutrophils # 5.1 K/mm3 (1.8-7.8); Neutrophils % 71.4 % (37.0-80.0); Platelet Count 253 K/mm3 (142-424); Red Cell Distribution Width 12.6 % (11.5-17.5); White Blood Count 7.2 K/mm3 (4.8-10.8)
[2024-06-21 13:49] LABS: Albumin Level 4.9 g/dl (3.5-5.0); Chloride 101 mmol/L (98-107); Potassium 4.7 mmoL/L (3.5-5.1); Sodium 138 mmol/L (136-145)
[2024-06-21 13:51] LABS: Blood Urea Nitrogen 16 mg/dl (9-20); Estimated Glomerular Filt Rate 92 ml/min (>60); GFR (African American) 111 ML/MIN (>60)
[2024-06-21 13:52] LABS: Alanine Aminotransferase 39 U/L (12-78); Alkaline Phosphatase 63 U/L (38-126); Anion Gap 10.7 mEq/L (5-15); Aspartate Amino Transferase 34 U/L (17-59); Bilirubin,Indirect 0.8 mg/dL (0.0-0.9); Bilirubin,Total 0.8 mg/dl (0.2-1.3); Bilirubin,Unconjugated 0.8 mg/dL (0.0-1.1); Carbon Dioxide 31 mmol/L (22.0-30.0); Cholesterol 156 mg/dl (140-200); Total Protein,Serum 7.2 g/dl (6.3-8.2); Triglycerides 148 mg/dl (30-150); VLDL Cholesterol 30 mg/dL (0-40)
[2024-06-21 13:53] LABS: Calcium 9.7 mg/dl (8.4-10.2); Glucose 117 mg/dl (74-100); HDL Cholesterol 39 mg/dl (40-60)
[2024-06-21 14:05] LABS: Free T4 (Free Thyroxine) 1.09 ng/dl (0.78-2.19)
[2024-06-21 14:23] LABS: Thyroid Stimulating Hormone 0.64 uIU/mL (0.465-4.68)
== END 2024-06-21 23:59 | disposition home or self-care (01) ==
LOC: RT 12:50
PROVIDERS: PCP Nurse Practitioner Family; Visit Provider Physician Assistant
DX: I34.0 Nonrheumatic mitral (valve) insufficiency (principal); I37.1 Nonrheumatic pulmonary valve insufficiency; I11.0 Hypertensive heart disease with heart failure; I25.10 Atherosclerotic heart disease of native coronary artery without angina pectoris; I50.20 Unspecified systolic (congestive) heart failure; E78.5 Hyperlipidemia, unspecified
CPT/HCPCS: 36415; 80048; 80061; 80076; 84439; 84443; 85025; 93306

== ENCOUNTER 2024-06-23 02:08 | Emergency (ER) | payer MEDICAID, SELFPAY ==
[2024-06-23] VITALS (8 sets, daily range): BP systolic 84–128; BP diastolic 55–96; PULSE 50–82; RESP 12–20; TEMP 36.6–36.8; O2SAT 92–100; BMI 25.8
--- NOTE | 2024-06-23 02:08 | ECG_ITS ---
APPROVED REPORT Exam: Resting ECG HR:60 bpm ECG Measurements Heart Rate 60 AXES MI 158 P 64 QRSd 90 QRS 80 QT 392 T 47 QTc 392 Conclusion SINUS RHYTHM LOW QRS VOLTAGE IN PRECORDIAL LEADS [QRS DEFLECTION < 1.0 mV IN CHEST LEADS] POSSIBLE ANTERIOR MYOCARDIAL INFARCTION , OF INDETERMINATE AGE [30 ms Q WAVE IN V3/V4, OR R < 0.2 mV IN V4] No STEMI Electronically signed by : SHAHZAD DEXTER, 06/23/2024 06:29:54
--- NOTE | 2024-06-23 02:15 | XR_ITS ---
PROCEDURE INFORMATION: Exam: XR Chest Exam date and time: 06/23/2024 2:26 AM Age: 43 years old Clinical indication: Pain; Chest pressure; Additional info: Cp TECHNIQUE: Imaging protocol: Radiologic exam of the chest. Views: 2 views. COMPARISON: CR XR CHEST PORTABLE 10/16/2023 11:41 PM FINDINGS: Lungs: Unremarkable. No consolidation. Pleural spaces: Unremarkable. No pleural effusion. No pneumothorax. Heart/Mediastinum: Unremarkable. No cardiomegaly. Bones/joints: Unremarkable. IMPRESSION: No acute findings.
[2024-06-23] MEDS: ASPIRIN 81MG CHEWABLE TABLET 324 MG PO (02:24)
[2024-06-23 02:29] LABS: Basophils # 0.1 K/mm3 (0-0.2); Eosinophils # 0.1 K/mm3 (0.0-0.4); Eosinophils % 1.3 % (0.1-12.0); Hematocrit 43.8 % (42.0-52.0); Hemoglobin 15.2 g/dL (14.1-18.0); Lymphocytes # 1.9 K/mm3 (0.7-4.5); Lymphocytes % 28.2 % (10-50); Mean Corpuscular HGB Conc 34.7 g/dL (31.8-35.4); Mean Corpuscular Hemoglobin 30.3 pg (27.0-31.2); Mean Corpuscular Volume 87.4 fl (80-94); Mean Platelet Volume 10.6 fl (7.4-10.4); Monocytes # 0.6 K/mm3 (0.1-1.0); Neutrophils # 4.1 K/mm3 (1.8-7.8); Neutrophils % 60.2 % (37.0-80.0); Platelet Count 252 K/mm3 (142-424); Red Blood Count 5.01 M/mm3 (4.60-6.20); Red Cell Distribution Width 12.3 % (11.5-17.5); White Blood Count 6.8 K/mm3 (4.8-10.8)
--- NOTE | 2024-06-23 02:30 | [facility].EDCP ---
Discharge Plan Disposition Patient Disposition: Home, Self-Care Condition: Good Prescriptions Prescriptions: No Action duloxetine [Cymbalta] 30 mg capsule,delayed release(DR/EC) 30 mg PO DAILY Qty: 90 3RF levocetirizine [Xyzal] 5 mg tablet 5 mg PO HS Qty: 90 3RF atorvastatin 80 mg tablet See Rx Instructions .ROUTE .COMPLEX Qty: 90 3RF Dose Instruction: TAKE ONE TABLET BY MOUTH EVERY DAY AT BEDTIME Rx Instructions: TAKE ONE TABLET BY MOUTH EVERY DAY AT BEDTIME aspirin 81 mg tablet,delayed release (DR/EC) See Rx Instructions .ROUTE .COMPLEX Qty: 90 3RF Dose Instruction: TAKE ONE TABLET BY MOUTH EVERY DAY FOR heart disease Rx Instructions: TAKE ONE TABLET BY MOUTH EVERY DAY FOR heart disease spironolactone 25 mg tablet See Rx Instructions .ROUTE .COMPLEX Qty: 90 2RF Dose Instruction: TAKE ONE TABLET BY MOUTH EVERY DAY Rx Instructions: TAKE ONE TABLET BY MOUTH EVERY DAY pantoprazole 40 mg tablet,delayed release (DR/EC) See Rx Instructions .ROUTE .COMPLEX Qty: 90 1RF Dose Instruction: TAKE ONE TABLET BY MOUTH EVERY DAY FOR gerd Rx Instructions: TAKE ONE TABLET BY MOUTH EVERY DAY FOR gerd carvedilol 6.25 mg tablet See Rx Instructions .ROUTE .COMPLEX Qty: 180 3RF Dose Instruction: TAKE ONE TABLET BY MOUTH TWICE DAILY --TAKE WITH A MEAL/FOOD-- Rx Instructions: TAKE ONE TABLET BY MOUTH TWICE DAILY --TAKE WITH A MEAL/FOOD-- clopidogrel [Plavix] 75 mg tablet 75 mg PO DAILY Qty: 30 5RF Entresto 49-51 mg tablet 1 tab PO BID Qty: 180 1RF Referrals Follow up/Referrals: Provider,Referral, MD [Primary Care Provider] - See instructions Activity Restrictions/Add. Instructions Additional Instructions/Restrictions: You were evaluated in the ER and are appropriate for discharge at this time. Continue taking all home medications as prescribed. Please call the cardiology office and make an appointment for close follow-up in the next few days. Also call your primary care doctor for reevaluation. Return to the ER with new, worsening, or otherwise concerning symptoms Clinical Impressions Clinical Impression: Chest pain Print Language Print Language: Bahraini Discharge ED Provider: Rubi Lindsay General Chief Complaint: Chest Pain Stated Complaint: chest pain Time Seen by Provider: 06/23/24 02:14 Mode of Arrival: Ambulatory Source of Information: Spouse Limitations: No Limitations Description of Symptoms (Recalled from ER Triage Doc. by RN): chest pain History of Present Illness HPI narrative: 43-year-old male with history of CAD, multiple stents, intracranial bleed, hypertension, hyperlipidemia presents to the ER with complaints of left-sided chest pain. Patient states since approximately 4 to 5 hours prior to arrival he has been having intermittent stabbing left-sided chest pain that he describes as a needle being driven into his heart. He states it is brief and does not seem to be brought on by anything or relieved by anything. He states that it will happen when he is at rest or active and then go away on its own. He has not taken any medications at home for his symptoms. He denies fevers, chills, numbness, tingling, weakness, dizziness, difficulty breathing, nausea, vomiting, diarrhea, or other associated symptoms. He is resting comfortably at this time and states his pain is a 1-2 out of 10 with no radiation. He states he has been taking all his home medications as prescribed. Related Data Previous Rx's ?Medication ?Instructions ?Recorded levocetirizine 5 mg tablet (Xyzal) 5 mg PO HS #90 tabs 09/01/23 aspirin 81 mg tablet,delayed See Rx Instructions .Route 09/23/23 release .COMPLEX #90 tabs atorvastatin 80 mg tablet See Rx Instructions .Route 09/23/23 .COMPLEX #90 tabs spironolactone 25 mg tablet See Rx Instructions .Route 12/23/23 .COMPLEX #90 tabs carvedilol 6.25 mg tablet See Rx Instructions .Route 01/19/24 .COMPLEX #180 tabs pantoprazole 40 mg tablet,delayed See Rx Instructions .Route 01/19/24 release .COMPLEX #90 tabs duloxetine 30 mg capsule,delayed 30 mg PO DAILY #90 caps 02/26/24 release (Cymbalta) clopidogrel 75 mg tablet (Plavix) 75 mg PO DAILY #30 tabs 04/15/24 sacubitril 49 mg-valsartan 51 mg 1 tab PO BID #180 tabs 06/09/24 tablet (Entresto) Allergies Allergy/AdvReac Type Severity Reaction Status Date / Time codeine AdvReac Other Verified 06/10/24 13:25 isosorbide AdvReac headache Verified 06/10/24 13:25 morphine AdvReac Other Verified 06/10/24 13:25 ranolazine AdvReac Mild depression Uncoded 06/10/24 13:25 [facility] Disclaimer: The information contained in this section may have been updated after the patient was seen, as this information can be updated by other users. Medical History (Updated 06/23/24 @ 05:42 by Rubi Lindsay MD) HFrEF (heart failure with reduced ejection fraction) Left otitis media Acute effusion of right ear Abnormal findings on diagnostic imaging of heart and coronary circulation Illness STEMI (ST elevation myocardial infarction) Chest pain Anxiety Angina pectoris Snoring Difficulty sleeping Fatigue Typical angina Abnormal result of cardiovascular function study Chest pain Gastroesophageal reflux disease Dyspnea Renal lesion Elevated lipase Atypical chest pain Vasovagal syncope Dizziness Angina pectoris HLD (hyperlipidemia) Chest pain CAD (coronary artery disease) Cardiomyopathy Systolic heart failure Tobacco use Low cardiac output syndrome LVH (left ventricular hypertrophy) COVID-19 Left elbow pain STEMI (ST elevation myocardial infarction) Exposure to COVID-19 virus Headache Left arm numbness Foot contusion Surgical History History of heart artery stent H/O cardiac catheterization Family History Father Family history of myocardial infarction Grandfather Family history of myocardial infarction Grandmother Family history of myocardial infarction Other Family history of hyperlipidemia Family history of hypertension Family history of stroke Social History Smoking Status: Current every day smoker alcohol intake: never substance use type: marijuana current occupational status: employed and unemployed Travel in the last 8 weeks: None household members: family housing: house marital status: single current occupation: [employer] current occupational exposures/hazards: No caffeine: Yes Other Medical History Have you received the Flu Vaccine for this season: No Have you received the Pneumonia Vaccine: No ROS Obtained: Yes Systems reviewed as appropriate & no additional complaints except as documented Per HPI Physical Exam General General appearance: alert and in no apparent distress Head Head exam: atraumatic and normocephalic Eye Eye exam: Present PERRL and EOMI ENT ENT exam: Present mucous membranes moist Neck Neck exam: Present normal inspection and full ROM Chest Chest inspection: Present symmetric chest wall rise; Absent tenderness Respiratory Respiratory exam: Present normal lung sounds bilaterally; Absent respiratory distress, wheezes or stridor Cardiovascular Cardiovascular exam: Present regular rate and normal rhythm Abdominal Exam Abdominal exam: Present soft; Absent distention or tenderness Extremities Exam Extremities exam: Present full ROM Neurological Exam Neurological exam: Present alert, oriented X3, CN II-XII intact and normal gait; Absent motor sensory deficit Psychiatric Psychiatric exam: Present normal affect and normal mood Skin Skin exam: Present warm and dry HEART Score HEART Score HEART Score assessment performed?: Yes History (anamnesis): Slightly suspicious ECG: Normal Age: <45 years Risk factors: Atherosclerosis history Troponin: </= normal limit HEART Score: 2 Critical Care Critical Care Time Critical Care Time: No Medical Decision Making Medical Records Medical records reviewed: Yes I reviewed the patient's medical records. MR Comment: Patient's most recent visit with cardiology on 06/10/2024 was reviewed by me. Plan from cardiology to continue medical management. Echo completed 06/21/2024. Not yet read. Scott Inquiry Pt receiving controlled substance: No Vital Signs Vital Signs: 06/23/24 02:09 06/23/24 02:25 06/23/24 02:30 Temperature 98.2 F Temperature Source Oral Pulse Rate 60 59 L Pulse Rate [Right Brachial] 62 Respiratory Rate 16 13 20 Blood Pressure 102/66 L 107/68 L Blood Pressure [Right Arm] 128/96 H Blood Pressure Mean [Right Arm] 106 Blood Pressure Source [Right Arm] Automatic Cuff Blood Pressure Position [Right Arm] Sitting 02 Sat by Pulse Oximetry 100 97 96 Oxygen Delivery Method Room Air 06/23/24 03:00 06/23/24 03:30 06/23/24 04:00 Temperature Temperature Source Pulse Rate 55 L 50 L 54 L Pulse Rate [Right Brachial] Respiratory Rate 12 19 18 Blood Pressure 98/65 L 92/65 L 84/55 L Blood Pressure [Right Arm] Blood Pressure Mean [Right Arm] Blood Pressure Source [Right Arm] Blood Pressure Position [Right Arm] 02 Sat by Pulse Oximetry 97 92 L 95 Oxygen Delivery Method 06/23/24 04:08 Temperature Temperature Source Pulse Rate 52 L Pulse Rate [Right Brachial] Respiratory Rate 14 Blood Pressure 91/58 L Blood Pressure [Right Arm] Blood Pressure Mean [Right Arm] Blood Pressure Source [Right Arm] Blood Pressure Position [Right Arm] 02 Sat by Pulse Oximetry 97 Oxygen Delivery Method Lab Data Labs: Lab Results 06/23/24 02:26: WBC 6.8, RBC 5.01, Hgb 15.2, Hct 43.8, MCV 87.4, MCH 30.3, MCHC 34.7, RDW 12.3, Plt Count 252, MPV 10.6 H, Neut % (Auto) 60.2, Lymph % (Auto) 28.2, [place] % (Auto) 9.0, Eos % (Auto) 1.3, Baso % (Auto) 1.0, Neut # (Auto) 4.1, Lymph # (Auto) 1.9, [place] # (Auto) 0.6, Eos # (Auto) 0.1, Baso # (Auto) 0.1, PT 10.0, INR 0.90, Sodium 135 L, Potassium 3.8, Chloride 103, Carbon Dioxide 26, Anion Gap 9.8, BUN 16, Creatinine 0.80, Estimated Creat Clear 122, Estimated GFR 106, Est GFR ( Amer) 128, Glucose 114 H, Calcium 9.1, Total Bilirubin 0.6, AST 42, ALT 44, Alkaline Phosphatase 68, Troponin I < 0.01, NT-Pro-B Natriuret Pep < 20.0, Total Protein 7.0, Albumin 4.9, Globulin 2.1, Albumin/Globulin Ratio 2.3 H 06/23/24 02:45: SARS-CoV-2 (PCR) Not detected, Influenza A Untype (PCR) Not detected, Influenza Type B (PCR) Not detected 06/23/24 05:10: Troponin I < 0.01 06/23/24 02:26 06/23/24 02:26 Response Orders (Tests/Meds): ED MEDICATIONS Discontinued Medications Generic Name Dose Route Start Last Admin Trade Name Freq PRN Reason Stop Dose Admin Aspirin 324 mg 06/23/24 02:15 06/23/24 02:24 Aspirin 81mg Chewable Tablet PO 06/23/24 02:16 324 mg ONCE ONE Administration Lactated Ringer's 1,000 mls @ 999 mls/hr 06/23/24 04:15 06/23/24 04:18 Lactated Ringer's 1000 Ml Bag IV 06/23/24 05:15 999 mls/hr .Q1H1M ONE Administration ORDERS Category Date Time Status XR chest 2V Stat Exams 06/23/24 02:15 Completed Complete Blood Count Auto Diff Stat Lab 06/23/24 02:26 Completed Comprehensive Metabolic Panel Stat Lab 06/23/24 02:26 Completed NT Pro Brain Natriuretic Pep. Stat Lab 06/23/24 02:26 Completed Prothrombin Time INR Stat Lab 06/23/24 02:26 Completed Rapid PCR Covid and Flu A/B Stat Lab 06/23/24 02:45 Completed Troponin I Q3H Lab 06/23/24 05:10 Completed Troponin I Q3H Lab 06/23/24 08:15 Ordered Troponin I Stat Lab 06/23/24 02:26 Completed MDM Narrative Medical Decision Narrative: In summary, this 43-year-old male with comorbidities described in the HPI presents to the emergency department today with chest pain. On initial evaluation patient is hemodynamically stable, afebrile, resting comfortably, pain is well-controlled at this time, it is not reproducible on exam, no peripheral edema, cardiopulmonary exam overall is benign, remainder of exam reassuring. Differential diagnosis includes but is not limited to ACS, I considered PE but patient is PERC negative, also considered MSK etiology, esophageal spasm, pneumothorax, viral syndrome, among others. Based on these concerns, I ordered serum labs, cardiac workup, chest x-ray. ECG personally interpreted demonstrates normal sinus rhythm, rate 60, normal axis, normal MD and QTc, no STEMI. Patient received aspirin load initially for treatment. Nitro was ordered but has not had to be administered since patient is resting comfortably at this time Labs personally reviewed demonstrate CBC nonactionable, stable from 2 days ago, PT/INR normal, CMP nonactionable, initial troponin undetectably low less than 0.01, BNP undetectable less than 20. XR personally interpreted demonstrates no acute thoracic abnormality, see radiology read for final interpretation. Patient placed in the ED observation at 0300 for continued symptomatic monitoring, cardiac monitoring, and serial troponins to rule out evolving CO and preclude unnecessary admission. While in ED observation he remained on the residential monitor and was frequently reassessed. Repeat troponin also undetectably low less than 0.01. Patient has remained comfortable and is pain-free. He is resting comfortably and appropriate for discharge at this time. He is comfortable with this plan. I instructed him to follow-up closely with his primary care doctor as well as with cardiology. He was also given instructions to continue taking all home medications as previously prescribed as well as given strict return precautions for the ER. He indicated understanding and the patient was discharged in stable condition. Total time in ED observation: 2 hours 40 minutes
[2024-06-23 02:40] LABS: Alanine Aminotransferase 44 U/L (12-78); Albumin Level 4.9 g/dl (3.5-5.0); Albumin/Globulin Ratio 2.3 (1.1-1.8); Alkaline Phosphatase 68 U/L (38-126); Anion Gap 9.8 mEq/L (5-15); Aspartate Amino Transferase 42 U/L (17-59); Bilirubin,Total 0.6 mg/dl (0.2-1.3); Blood Urea Nitrogen 16 mg/dl (9-20); Calcium 9.1 mg/dl (8.4-10.2); Carbon Dioxide 26 mmol/L (22.0-30.0); Chloride 103 mmol/L (98-107); Creatinine Clearance Estimated 122 mL/min (50-200); Estimated Glomerular Filt Rate 106 ml/min (>60); GFR (African American) 128 ML/MIN (>60); Globulin 2.1 g/dL (1.3-3.2); Glucose 114 mg/dl (74-100); Potassium 3.8 mmoL/L (3.5-5.1); Sodium 135 mmol/L (136-145)
[2024-06-23 02:52] LABS: NT Pro Brain Natriuretic Pep. < 20.0 pg/mL (0-125)
[2024-06-23 02:55] LABS: Troponin I < 0.01 ng/ml (0.00-0.034)
[2024-06-23 03:00] LABS: Coronavirus 19, PCR Not Detected (NotDetected); Influenza A, PCR Not Detected (NotDetected); Influenza B, PCR Not Detected (NotDetected)
[2024-06-23] MEDS: LACTATED RINGERS 1000ML 1,000 ML 999 ML IV (04:18)
--- NOTE | 2024-06-23 04:45 | PC.NURSE ---
rounded on pt. s/o at bedside. MD Lindsay notified of SBP 91. Fluids infusing per MAR. Pt voices no needs. call light in reach
--- NOTE | 2024-06-23 05:11 | PC.NURSE ---
REpeat tropnin drawn and sent to lab Pt resting comfortably in bed In no distress
[2024-06-23 05:38] LABS: Troponin I < 0.01 ng/ml (0.00-0.034)
== END 2024-06-23 05:50 | disposition home or self-care (01) ==
PROVIDERS: Emergency Provider Emergency Medicine
DX: R07.9 Chest pain, unspecified (principal)
CPT/HCPCS: 71046; 80053; 83880; 84484; 85025; 85610; 87636; 93005; 96360; 99285; 99291; 99292; J7120